=== PATIENT | female | born 1950 | race Caucasian/White ===

== ENCOUNTER 2016-06-24 09:30 | Emergency (ER) | payer MEDICARE, MEDICAID ==
[2016-06-24] MEDS ORDERED: DEXTROSE 50%-WATER 25 GM/50 ML DISP.SYRIN IV ONE (09:47)
--- NOTE | 2016-06-24 11:13 | ER Document Report ---
ED General - General Chief Complaint: Fall Stated Complaint: FALL/SHOULDER PAIN Mode of Arrival: Medic Information source: Patient, Emergency Med Personnel Notes: 65-year-old female presents from care facility where she was found down on her left side. Patient admits to right shoulder pain left hand pain. Patient noted to have swelling to the digit of her left hand with a ring on it which was attempted to be cut off by medics. Patient history diabetes has not been eating the past 2 days noted to have a glucose of 41 on arrival TRAVEL OUTSIDE OF THE [place] IN LAST 30 DAYS: No - HPI Onset: Just prior to arrival Onset/Duration: Sudden Quality of pain: Achy Severity: Mild Pain Level: 1 Associated symptoms: Weakness Exacerbated by: Movement Relieved by: Denies Similar symptoms previously: Yes Recently seen / treated by doctor: Yes - Related Data Allergies/Adverse Reactions: ciprofloxacin [From Cipro] Allergy (Verified 06/24/16 11:10) Rash/Hives meperidine [Meperidine] Allergy (Verified 06/24/16 11:10) Rash/Hives methadone [Methadone] Allergy (Verified 06/24/16 11:10) Rash/Hives Penicillins Allergy (Verified 06/24/16 11:10) Anaphylaxis, Rash Sulfa (Sulfonamide Antibiotics) Allergy (Verified 06/24/16 11:10) Rash/Hives Past Medical History - Social History Smoking Status: Never Smoker Cigarette use (# per day): No Chew tobacco use (# tins/day): No Smoking Education Provided: No Family History: Reviewed & Not Pertinent - Past Medical History Cardiac Medical History: Reports: Hx Hypercholesterolemia, Hx Hypertension - 6 years- takes meds Denies: Hx Atrial Fibrillation, Hx Congestive Heart Failure, Hx Coronary Artery Disease, Hx Heart Attack, Hx Peripheral Vascular Disease, Hx Pulmonary Embolism, Hx Heart Murmur Pulmonary Medical History: Reports: Hx Sleep Apnea - uses CPAP Denies: Hx Asthma, Hx Bronchitis, Hx COPD, Hx Pneumonia, Hx Respiratory Failure, Hx Tuberculosis Neurological Medical History: Reports: Hx Migraine Endocrine Medical History: Reports: Hx Diabetes Mellitus Type 2. Denies: Hx Graves' Disease, Hx Hyperthyroidism, Hx Hypothyroidism Renal/ Medical History: Reports: Hx Kidney Stones. Denies: Hx End Stage Renal Disease, Hx Peritoneal Dialysis Malignancy Medical History: Denies: Hx Lung Cancer GI Medical History: Reports: Hx Gastroesophageal Reflux Disease - takes meds, Hx Hiatal Hernia. Denies: Hx Crohn's Disease, Hx Irritable Bowel, Hx Liver Failure, Hx Ulcer Musculoskeltal Medical History: Reports Hx Arthritis, Denies Hx Fibromyalgia, Denies Hx Muscular Dystrophy Psychiatric Medical History: Reports: Hx Depression Denies: Hx Bipolar Disorder, Hx Post Traumatic Stress Disorder, Hx Schizophrenia Traumatic Medical History: Reports: Hx Fractures - closed, displaced fracture at right patella Infectious Medical History: Past Surgical History: Reports: Hx Section, Hx Cholecystectomy, Hx Orthopedic Surgery - bilat knee replacement, Hx Tubal Ligation. Denies: Hx Appendectomy, Hx Bowel Surgery, Hx Colostomy, Hx Coronary Artery Bypass Graft, Hx Gastric Bypass Surgery, Hx Herniorrhaphy, Hx Hysterectomy, Hx Mastectomy, Hx Pacemaker, Hx Tonsillectomy - Immunizations Immunizations up to date: Yes Hx Diphtheria, Pertussis, Tetanus Vaccination: Yes Hx Pneumococcal Vaccination: 07/07/15 Review of Systems - Review of Systems Notes: REVIEW OF SYSTEMS: CONSTITUTIONAL : Denies fever, chills, or sweats. Denies recent illness. EENT: Denies eye, ear, throat, or mouth pain or symptoms. Denies nasal or sinus congestion or discharge. Denies throat, tongue, or mouth swelling or difficulty swallowing. CARDIOVASCULAR: Denies chest pain. Denies palpitations or racing or irregular heart beat. Denies ankle edema. RESPIRATORY: Denies cough, cold, or chest congestion. Denies shortness of breath, difficulty breathing, or wheezing. GASTROINTESTINAL: Denies abdominal pain or distention. Denies nausea, vomiting , or diarrhea. Denies blood in vomitus, stools, or per rectum. Denies black, tarry stools. Denies constipation. GENITOURINARY: Denies difficulty urinating, painful urination, burning, frequency, blood in urine, or discharge. FEMALE GENITOURINARY: Denies vaginal bleeding, heavy or abnormal periods, irregular periods. Denies vaginal discharge or odor. MUSCULOSKELETAL: Admits to left hand pain right shoulder pain SKIN: Denies rash, lesions or sores. HEMATOLOGIC : Denies easy bruising or bleeding. LYMPHATIC: Denies swollen, enlarged glands. NEUROLOGICAL: Denies confusion or altered mental status. Denies passing out or loss of consciousness. Denies dizziness or lightheadedness. Denies headache. Denies weakness or paralysis or loss of use of either side. Denies problems with gait or speech. Denies sensory loss, numbness, or tingling. Denies seizures. PSYCHIATRIC: Denies anxiety or stress. Denies depression, suicidal ideation, or homicidal ideation. ALL OTHER SYSTEMS REVIEWED AND NEGATIVE. Dictation was performed using [employer] voice recognition software PHYSICAL EXAMINATION: GENERAL: Well-appearing, well-nourished and in no acute distress. HEAD: Atraumatic, normocephalic. EYES: Pupils equal round and reactive to light, extraocular movements intact, conjunctiva are normal. ENT: Nares patent, oropharynx clear without exudates. Moist mucous membranes. NECK: Normal range of motion, supple without lymphadenopathy LUNGS: Breath sounds clear to auscultation bilaterally and equal. No wheezes rales or rhonchi. HEART: Regular rate and rhythm without murmurs ABDOMEN: Soft, nontender, nondistended abdomen. No guarding, no rebound. No masses appreciated. Female : deferred Musculoskeletal: Tenderness with range of motion of the right shoulder swelling noted to digits of left hand NEUROLOGICAL: Patient noted to be confused with a glucose of 41 PSYCH: Normal mood, normal affect. SKIN: Warm, Dry, normal turgor, no rashes or lesions noted. Physical Exam - Vital signs Vitals: Resp 20 06/24/16 09:30 Course - Re-evaluation Re-evalutation: 06/24/16 11:13 I removed the patient's ring using jelly. X-rays are pending lab work is pending 06/24/16 12:24 X-rays lab work note no significant abnormality. Patient's otherwise stable and well-appearing. Moderate leukoesterases are noted without any white blood cells on urine Recheck blood sugar 06/24/16 12:42 Patient blood sugar was rechecked and stable. I believe she is stable for discharge at this time. After performing a Medical Screening Examination, I estimate there is LOW risk for ACUTE CORONARY SYNDROME, RESPIRATORY FAILURE, SEPSIS OR MENINGITIS, thus I consider the discharge disposition reasonable. The patient and I have discussed the diagnosis and risks, and we agree with discharging home with close follow- up. We also discussed returning to the Emergency Department immediately if new or worsening symptoms occur. We have discussed the symptoms which are most concerning (e.g., changing or worsening pain, trouble swallowing or breathing, neck stiffness, fever) that necessitate immediate return. - Vital Signs Vital signs: Temp Pulse Resp BP Pulse Ox 97.4 F 78 19 160/77 H 98 06/24/16 09:35 06/24/16 09:35 06/24/16 12:01 06/24/16 12:01 06/24/16 12:01 - Laboratory Result Diagrams: 06/24/16 10:59 06/24/16 10:59 Laboratory results interpreted by me: 06/24/16 06/24/16 06/24/16 09:42 10:59 10:59 RBC 3.70 L Hgb 11.1 L Hct 33.8 L Glucose 119 H POC Glucose 41 L Ur Leukocyte Esterase 06/24/16 11:04 RBC Hgb Hct Glucose POC Glucose Ur Leukocyte Esterase MODERATE H - Diagnostic Test Radiology reviewed: Image reviewed, Reports reviewed Discharge - Discharge Clinical Impression: Hypoglycemia Fall Qualifiers: Encounter type: initial encounter Qualified Code(s): W19.XXXA - Unspecified fall, initial encounter Shoulder pain Qualifiers: Laterality: right Chronicity: acute Qualified Code(s): M25.511 - Pain in right shoulder Hand pain Qualifiers: Laterality: left Qualified Code(s): M79.642 - Pain in left hand Condition: Stable Disposition: HOME, SELF-CARE Additional Instructions: Please reevaluate with your primary care physician tomorrow or return immediately if there are any other concerns Referrals: CRISTIAN HAWKINS MD [Primary Care Provider] - Follow up tomorrow
[2016-06-24 11:18] LABS: ABSOLUTE BASOPHILS # (AUTO) 0.1 10^3/uL (0.0-0.2); ABSOLUTE EOSINOPHILS # (AUTO) 0.2 10^3/uL (0.0-0.6); ABSOLUTE LYMPHOCYTES (AUTO) 1.4 10^3/uL (0.5-4.7); ABSOLUTE MONOCYTES (AUTO) 0.7 10^3/uL (0.1-1.4); ABSOLUTE NEUT (AUTO) 5.5 10^3/uL (1.7-8.2); BASOPHILS % (AUTO) 0.9 % (0-2); HEMATOCRIT 33.8 % (36.0-47.0); HEMOGLOBIN 11.1 g/dL (12.0-15.5); HGB HCT DIFFERENCE -0.5; LYMPHOCYTES % (AUTO) 17.8 % (13-45); MEAN CORPUSCULAR HEMOGLOBIN 30.1 pg (27.0-33.4); MEAN CORPUSCULAR HGB CONC 32.9 g/dL (32.0-36.0); MEAN CORPUSCULAR VOLUME 91 fl (80-97); MONOCYTES % (AUTO) 8.8 % (3-13); RED CELL DISTRIBUTION WIDTH 13.5 % (11.5-14.0); SEGMENTED NEUTROPHILS % (AUTO) 69.5 % (42-78); WHITE BLOOD COUNT 7.9 10^3/uL (4.0-10.5)
[2016-06-24 11:24] LABS: ALANINE AMINOTRANSFERASE 19 U/L (9-52); ALBUMIN 3.9 g/dL (3.5-5.0); ALKALINE PHOSPHATASE 50 U/L (38-126); ANION GAP 13 (5-19); ASPARTATE AMINO TRANSFERASE 25 U/L (14-36); BILIRUBIN,DIRECT 0.3 mg/dL (0.0-0.4); BILIRUBIN,TOTAL 0.3 mg/dL (0.2-1.3); BLOOD UREA NITROGEN 16 mg/dL (7-20); CALCIUM 9.6 mg/dL (8.4-10.2); CARBON DIOXIDE 25 mmol/L (22-30); CHLORIDE 106 mmol/L (98-107); CREATINE KINASE 78 U/L (30-135); CREATININE RESULT 0.94 mg/dL (0.52-1.25); GLUCOSE 119 mg/dL (75-110); POTASSIUM 4.6 mmol/L (3.6-5.0); SODIUM 143.7 mmol/L (137-145); TOTAL PROTEIN 6.7 g/dL (6.3-8.2)
[2016-06-24 11:29] LABS: APPEARANCE,URINE SLIGHTLY-CLOUDY; BILIRUBIN,URINE NEGATIVE (NEGATIVE); GLUCOSE, URINE NEGATIVE (NEGATIVE); KETONES,URINE NEGATIVE (NEGATIVE); LEUKOCYTE ESTERASE,URINE MODERATE (NEGATIVE); NITRITE,URINE NEGATIVE (NEGATIVE); PROTEIN,URINE NEGATIVE (NEGATIVE); URINE SPECIFIC GRAVITY 1.008; UROBILINOGEN,URINE NEGATIVE mg/dL (<2.0)
[2016-06-24 11:37] LABS: CREATINE KINASE MB 1.88 ng/mL (<4.55); TROPONIN I < 0.012 ng/mL
[2016-06-24] MEDS ORDERED: KETOROLAC TROMETHAMINE INJ/PF 30 MG/1 ML SDV IV ONE (12:02)
[2016-06-24 13:15] VITALS: BP 156/79
== END 2016-06-24 14:10 | disposition home or self-care (01) ==
LOC: ER 09:30
DX: M25.511 Pain in right shoulder (principal); M79.642 Pain in left hand; M79.89 Other specified soft tissue disorders; E11.9 Type 2 diabetes mellitus without complications; W19.XXXA Unspecified fall, initial encounter
CPT/HCPCS: 99284; 96374; 96375; 36415; 82553; 82962; 82550; 85025; 80053; 81001; 84484; 73130; 73030; J3490; J1885

== ENCOUNTER 2016-07-17 16:34 | Emergency (ER) | payer MEDICARE, MEDICAID ==
--- NOTE | 2016-07-17 18:01 | ER Document Report ---
ED General - General Chief Complaint: Low Blood Sugar Stated Complaint: LOW BLOOD PRESSURE Time seen by provider: 16:35 Mode of Arrival: Medic Information source: Patient, Emergency Med Personnel Notes: 65-year-old female who told her roommate at [facility]term that she was feeling weak as if her blood sugar was dropping after physical therapy this afternoon. Her roommate notified long-term staff who called EMS. EMS personnel found her to have a glucose of 36. senior living staff administered oral glucose prior to EMS arrival and EMS administered D50. Patient had resolution of her sensation of weakness and feels normal upon arrival in emergency department. Patient was also noted to have a blood pressure of 76/60 by EMS personnel and she received IV fluids. Initial blood pressure here was 93 systolic after total of approximately 7 or 50 mL of saline. The patient reports she has been in her normal state of health recently. She reports she doesn't ordinarily breakfast but did eat lunch today and her blood sugar at lunch time was 350 she received 4 units of NovoLog for that. Patient feels well now with no complaints. She reports that ordinarily gets around in a wheelchair Physical Exam: General: Alert, appears well. Pleasant happy smiling no distress HEENT: Normocephalic. Atraumatic. PERRLA. Extraocular movements intact. Oropharynx clear. Mucous membranes moist Neck: Supple. Non-tender. No JVD no carotid bruits Respiratory: No respiratory distress. Clear and equal breath sounds bilaterally. Cardiovascular: Regular rate and rhythm. Abdominal: Normal Inspection. Soft, non-tender. No distension. Normal Bowel Sounds. Back: Non-tender. No deformity or step off. No lesions noted Extremities: All warm with 2+ pulses no cyanosis no edema no Homans sign bilaterally Neurological: Oriented to person place and year. 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 Normal Mood. Skin: Warm. Dry. Normal color. TRAVEL OUTSIDE OF THE [place] IN LAST 30 DAYS: No - Related Data Allergies/Adverse Reactions: ciprofloxacin [From Cipro] Allergy (Verified 06/24/16 11:10) Rash/Hives meperidine [Meperidine] Allergy (Verified 06/24/16 11:10) Rash/Hives methadone [Methadone] Allergy (Verified 06/24/16 11:10) Rash/Hives Penicillins Allergy (Verified 06/24/16 11:10) Anaphylaxis, Rash Sulfa (Sulfonamide Antibiotics) Allergy (Verified 06/24/16 11:10) Rash/Hives Past Medical History - Social History Smoking Status: Never Smoker Chew tobacco use (# tins/day): No Frequency of alcohol use: None Drug Abuse: None Family History: Reviewed & Not Pertinent - Past Medical History Cardiac Medical History: Reports: Hx Hypercholesterolemia, Hx Hypertension - 6 years- takes meds Denies: Hx Atrial Fibrillation, Hx Congestive Heart Failure, Hx Coronary Artery Disease, Hx Heart Attack, Hx Peripheral Vascular Disease, Hx Pulmonary Embolism, Hx Heart Murmur Pulmonary Medical History: Reports: Hx Sleep Apnea - uses CPAP Denies: Hx Asthma, Hx Bronchitis, Hx COPD, Hx Pneumonia, Hx Respiratory Failure, Hx Tuberculosis Neurological Medical History: Reports: Hx Migraine Endocrine Medical History: Reports: Hx Diabetes Mellitus Type 2. Denies: Hx Graves' Disease, Hx Hyperthyroidism, Hx Hypothyroidism Renal/ Medical History: Reports: Hx Kidney Stones. Denies: Hx End Stage Renal Disease, Hx Peritoneal Dialysis Malignancy Medical History: Denies: Hx Lung Cancer GI Medical History: Reports: Hx Gastroesophageal Reflux Disease - takes meds, Hx Hiatal Hernia. Denies: Hx Crohn's Disease, Hx Irritable Bowel, Hx Liver Failure, Hx Ulcer Musculoskeltal Medical History: Reports Hx Arthritis, Denies Hx Fibromyalgia, Denies Hx Muscular Dystrophy Psychiatric Medical History: Reports: Hx Depression Denies: Hx Bipolar Disorder, Hx Post Traumatic Stress Disorder, Hx Schizophrenia Traumatic Medical History: Reports: Hx Fractures - closed, displaced fracture at right patella Infectious Medical History: Past Surgical History: Reports: Hx Section, Hx Cholecystectomy, Hx Orthopedic Surgery - bilat knee replacement, Hx Tubal Ligation. Denies: Hx Appendectomy, Hx Bowel Surgery, Hx Colostomy, Hx Coronary Artery Bypass Graft, Hx Gastric Bypass Surgery, Hx Herniorrhaphy, Hx Hysterectomy, Hx Mastectomy, Hx Pacemaker, Hx Tonsillectomy - Immunizations Immunizations up to date: Yes Hx Diphtheria, Pertussis, Tetanus Vaccination: Yes Hx Pneumococcal Vaccination: 07/07/15 Review of Systems - Review of Systems Constitutional: Weakness. denies: Chills, Diaphoresis, Fever EENT: denies: Ear pain, Nose congestion, Throat pain Cardiovascular: denies: Chest pain, Palpitations, Dyspnea, Syncope Respiratory: denies: Cough, Short of breath, Wheezing Gastrointestinal: denies: Abdominal pain, Diarrhea, Nausea, Vomiting, Blood in vomit, Black stools, Rectal bleeding Genitourinary: denies: Burning, Dysuria Female Genitourinary: Post menopausal Musculoskeletal: denies: Back pain, Muscle pain, Leg swelling, Ankle swelling Skin: denies: Rash Hematologic/Lymphatic: denies: Swollen glands Neurological/Psychological: denies: Weakness, Numbness Physical Exam - Vital signs Vitals: Resp Pulse Ox 12 100 07/17/16 16:54 07/17/16 16:54 Course - Re-evaluation Re-evalutation: 07/17/16 19:13 Patient has remained asymptomatic and hemodynamically stable during her stay in him or his partner. She Took all that they reported blood pressure 76/60 is really accurate. The patient is mentating clearly perfusing well in all extremities. She is eaten and recheck blood sugars 130. She will be going to facility where she can be observed for changes in mental status or recurrent hypoglycemia and is safe for discharge - Vital Signs Vital signs: Temp Pulse Resp BP Pulse Ox 97.5 F 15 100/51 L 96 07/17/16 17:05 07/17/16 17:01 07/17/16 17:01 07/17/16 17:01 Discharge - Discharge Clinical Impression: Hypoglycemia Condition: Stable Disposition: HOME-SNF (ED ONLY) Additional Instructions: Hypoglycemia You have suffered an episode of hypoglycemia (low blood sugar). Typical symptoms of hypoglycemia are shaking, sweating, headache, and confusion. When severe, unconsciousness or seizure may occur. Hypoglycemia occurs when a person taking insulin or diabetes pills has a change in the amount of blood sugar available -- due to exercise, decreased food intake, or alcohol. Should you feel symptoms of hypoglycemia again, immediately take some form of sugar such as sweetened juice. As the reaction subsides, eat a complex carbohydrate such as bread. If possible, check your blood sugar using a chemical strip. If episodes are occurring without obvious explanation, contact your physician for further evaluation. Referrals: CRISTIAN HAWKINS MD [Primary Care Provider] - Follow up in 3-5 days
[2016-07-18 02:12] VITALS: BP 120/55
== END 2016-07-18 02:18 ==
LOC: ER 16:34
DX: E11.649 Type 2 diabetes mellitus with hypoglycemia without coma (principal); Z79.4 Long term (current) use of insulin; R53.1 Weakness; K21.9 Gastro-esophageal reflux disease without esophagitis; E78.00 Pure hypercholesterolemia, unspecified; I10 Essential (primary) hypertension; Z88.3 Allergy status to other anti-infective agents; Z88.0 Allergy status to penicillin; Z88.2 Allergy status to sulfonamides; Z87.442 Personal history of urinary calculi
CPT/HCPCS: 82962; 99285

== ENCOUNTER 2016-08-28 05:12 | Day surgery (SDC) | payer MEDICARE, MEDICAID ==
--- NOTE | 2016-08-21 20:54 | EKG REPORT ---
SEVERITY:- ABNORMAL ECG - SINUS RHYTHM LEFT ANTERIOR FASCICULAR BLOCK CONSIDER ANTEROSEPTAL INFARCT : Confirmed by: Kaye Gonzalez MD 21-Aug-2016 20:53:27
[2016-08-22 08:01] LABS: ABSOLUTE BASOPHILS # (AUTO) 0.1 10^3/uL (0.0-0.2); ABSOLUTE EOSINOPHILS # (AUTO) 0.2 10^3/uL (0.0-0.6); ABSOLUTE LYMPHOCYTES (AUTO) 1.7 10^3/uL (0.5-4.7); ABSOLUTE MONOCYTES (AUTO) 0.8 10^3/uL (0.1-1.4); BASOPHILS % (AUTO) 0.9 % (0-2); HEMATOCRIT 31.7 % (36.0-47.0); HEMOGLOBIN 10.1 g/dL (12.0-15.5); HGB HCT DIFFERENCE -1.4; LYMPHOCYTES % (AUTO) 21.7 % (13-45); MEAN CORPUSCULAR HEMOGLOBIN 29.2 pg (27.0-33.4); MEAN CORPUSCULAR HGB CONC 31.7 g/dL (32.0-36.0); MEAN CORPUSCULAR VOLUME 92 fl (80-97); MONOCYTES % (AUTO) 10.6 % (3-13); RED BLOOD COUNT 3.44 10^6/uL (3.72-5.28); RED CELL DISTRIBUTION WIDTH 14.4 % (11.5-14.0); SEGMENTED NEUTROPHILS % (AUTO) 63.8 % (42-78); WHITE BLOOD COUNT 7.8 10^3/uL (4.0-10.5)
[2016-08-22 10:55] LABS: CALCIUM 10.6 mg/dL (8.4-10.2)
[2016-08-22 10:58] LABS: BLOOD UREA NITROGEN 18 mg/dL (7-20); CREATININE RESULT 1.02 mg/dL (0.52-1.25); GLUCOSE 39 mg/dL (75-110)
[2016-08-22 10:59] LABS: CARBON DIOXIDE 23 mmol/L (22-30); CHLORIDE 104 mmol/L (98-107); POTASSIUM 6.1 mmol/L (3.6-5.0)
[2016-08-22 11:00] LABS: ANION GAP 13 (5-19); SODIUM 139.8 mmol/L (137-145)
[~2016-08-28 05:12] MED LIST: CLINDAMYCIN 600 MG/D5W RTU 600 MG/50 ML RTUPB IV PRN; LACTATED RINGERS 1000 ML IV PRN; LIDOCAINE 0.5% INJ-PF (5 MG/ML) 50 ML SDV SUBCUT PRN
[2016-08-28 06:33] LABS: POTASSIUM 5.5 mmol/L (3.6-5.0)
[2016-08-28] MEDS ORDERED: BUPIVACAINE HCL 0.5%-EPI 1:200000 INJ/PF 30 ML VIAL ONE (06:47)
[2016-08-28] MEDS ORDERED: FENTANYL CITRATE INJ/PF 100 MCG/2 ML AMPUL ONE (07:12)
[2016-08-28] MEDS ORDERED: MIDAZOLAM 2 MG/2 ML INJ ONE (07:12)
[2016-08-28] MEDS ORDERED: DEXMEDETOMIDINE INJ 80 MCG/20 ML VIAL IV ONE (07:13)
[2016-08-28] MEDS ORDERED: KETAMINE HCL INJ 500 MG/10 ML VIAL ONE (07:13)
[2016-08-28] MEDS ORDERED: PROPOFOL INJ 200 MG/20 ML VIAL IV ONE (07:13)
[2016-08-28] MEDS ORDERED: EPHEDRINE SULFATE INJ 50 MG/1 ML AMPULE ONE (07:14)
[2016-08-28] MEDS ORDERED: FENTANYL CITRATE INJ/PF 100 MCG/2 ML AMPUL IV PRN ×3 (07:42)
[2016-08-28] MEDS ORDERED: MEPERIDINE HCL/PF INJ 25 MG/1 ML DISP.SYRIN IV PRN (07:42)
[2016-08-28] MEDS ORDERED: MORPHINE SULFATE 10 MG/ML INJ IV PRN (07:42)
[2016-08-28] MEDS ORDERED: DIPHENHYDRAMINE HCL 50 MG/ML VIAL IV PRN (07:42)
[2016-08-28] MEDS ORDERED: PROMETHAZINE HCL INJ 25 MG/1 ML VIAL IV PRN ×2 (07:42)
[2016-08-28] MEDS ORDERED: OXYCODONE-ACETAMINOPHEN 5-325 MG TABLET PO PRN ×2 (07:42)
--- NOTE | 2016-08-28 08:15 | Operative Report ---
Operative Report DATE OF SURGERY: 08/28/16 PREOPERATIVE DIAGNOSIS: Retained hardware status post open reduction internal fixation right patella fracture OPERATION: Hardware removal SURGEON: IVY LEON ANESTHESIA: GA TISSUE REMOVED OR ALTERED: Steinmann pin 2, [id number] wire ESTIMATED BLOOD LOSS: Minimal PROCEDURE: Patient supine on the operating table the right lower extremities prepped and draped in a sterile fashion. The limb was elevated for exsanguination. Tourniquet inflated 280 torr. A limited anterior midline incision is made and sharp dissection was carried incision to the superficial surface of patella. The underlying hardware is easily identified. [id number] wires removed after cutting it in midsection. The 2 Steinmann pins that are unfolded above and pulled out distally. All 3 pieces of hardware handed from the field. The wound was then irrigated. The tourniquet deflated. Hemostasis obtained with electrocautery. Wound was closed in layers with interrupted Vicryl followed by jeff. Sterile compressive dressing is applied and the patient's return to the PACU in satisfactory condition.
[2016-08-28] MEDS ORDERED: ONDANSETRON 4 MG TAB.RAPDIS SL PRN (08:23)
[2016-08-28] MEDS ORDERED: OXYCODONE HCL IR 5 MG TABLET PO PRN (08:23)
[2016-08-28] MEDS ORDERED: KETOROLAC TROMETHAMINE 60 MG/2 ML SDV ONE (10:07)
[2016-08-28] MEDS ORDERED: ONDANSETRON HCL INJ/PF 4 MG/2 ML SDV ONE (10:07)
[2016-08-28] MEDS ORDERED: SUCCINYLCHOLINE CHLORIDE INJ 200 MG/10 ML VIAL ONE (10:07)
[2016-08-28] MEDS ORDERED: LIDOCAINE 2% INJ-PF (20 MG/ML) 10 ML AMPUL ONE (10:07)
[2016-08-28] MEDS ORDERED: DEXAMETHASONE SOD PHOSPHATE INJ 4 MG/1 ML VIAL ONE (10:07)
[2016-08-28 10:15] VITALS: BP 107/52
== END 2016-08-28 09:55 | disposition home or self-care (01) ==
LOC: OROUT 05:12
PROVIDERS: ATTEND Orthopaedic Surgery
PROC: 0QPD04Z Removal of Internal Fixation Device from Right Patella, Open Approach (ICD-10-PCS; principal; 2016-08-28 07:30)
DX: S82.011 Displaced osteochondral fracture of right patella (principal); X58.XXXS Exposure to other specified factors, sequela; E11.9 Type 2 diabetes mellitus without complications; E78.5 Hyperlipidemia, unspecified; M19.90 Unspecified osteoarthritis, unspecified site; Z79.899 Other long term (current) drug therapy; Z47.2 Encounter for removal of internal fixation device; Z88.0 Allergy status to penicillin; Z88.2 Allergy status to sulfonamides; Z88.5 Allergy status to narcotic agent; Z79.82 Long term (current) use of aspirin; Z79.4 Long term (current) use of insulin
CPT/HCPCS: 93005; 36415 ×2; 82947; 84132; 85025; 80048; 83036; 71020; 93010; 20680; J2250; J3490 ×5; J1100; J1885; J3010; J0330; J2405; J2704; A9270; 1392

== ENCOUNTER 2016-08-30 02:00 | Emergency (ER) | payer MEDICARE, MEDICAID ==
--- NOTE | 2016-08-30 03:22 | ER Document Report ---
ED GI/ - General Chief Complaint: Constipation Stated Complaint: CONSTIPATION Time Seen by Provider: 08/30/16 03:01 Mode of Arrival: Medic Information source: Patient Notes: Pt is a 65 year old female who presents to the ER today from [facility] for constipation x 1 week. Patient states that she has not had any type of bowel movement in 1 full week. She has been able to pass gas. She admits to nausea , but no vomiting. she does have a history of and gallbladder removal many years ago. she admits to abdominal pain all over her abdomen. She denies any dysuria, fever, chills. she has been taking stool softeners Which have not helped, and some type of green liquid at the senior care gave her that did not help. TRAVEL OUTSIDE OF THE [place] IN LAST 30 DAYS: No - Related Data Allergies/Adverse Reactions: ciprofloxacin [From Cipro] Allergy (Verified 06/24/16 11:10) Rash/Hives meperidine [Meperidine] Allergy (Verified 06/24/16 11:10) Rash/Hives methadone [Methadone] Allergy (Verified 06/24/16 11:10) Rash/Hives Penicillins Allergy (Verified 06/24/16 11:10) Anaphylaxis, Rash Sulfa (Sulfonamide Antibiotics) Allergy (Verified 06/24/16 11:10) Rash/Hives Past Medical History - General Information source: Patient - Social History Smoking Status: Unknown if Ever Smoked Family History: Reviewed & Not Pertinent Patient has suicidal ideation: No Patient has homicidal ideation: No - Past Medical History Cardiac Medical History: Reports: Hx Hypercholesterolemia, Hx Hypertension - 6 years- takes meds Denies: Hx Atrial Fibrillation, Hx Congestive Heart Failure, Hx Coronary Artery Disease, Hx Heart Attack, Hx Peripheral Vascular Disease, Hx Pulmonary Embolism, Hx Heart Murmur Pulmonary Medical History: Reports: Hx Sleep Apnea - uses CPAP Denies: Hx Asthma, Hx Bronchitis, Hx COPD, Hx Pneumonia, Hx Respiratory Failure, Hx Tuberculosis Neurological Medical History: Reports: Hx Migraine. Denies: Hx Cerebrovascular Accident, Hx Seizures Endocrine Medical History: Reports: Hx Diabetes Mellitus Type 2. Denies: Hx Graves' Disease, Hx Hyperthyroidism, Hx Hypothyroidism Renal/ Medical History: Reports: Hx Kidney Stones. Denies: Hx End Stage Renal Disease, Hx Peritoneal Dialysis Malignancy Medical History: Denies: Hx Lung Cancer GI Medical History: Reports: Hx Gastroesophageal Reflux Disease - takes meds, Hx Hiatal Hernia. Denies: Hx Crohn's Disease, Hx Irritable Bowel, Hx Liver Failure, Hx Ulcer Musculoskeltal Medical History: Reports Hx Arthritis, Denies Hx Fibromyalgia, Denies Hx Muscular Dystrophy Psychiatric Medical History: Reports: Hx Depression Denies: Hx Bipolar Disorder, Hx Post Traumatic Stress Disorder, Hx Schizophrenia Traumatic Medical History: Reports: Hx Fractures - closed, displaced fracture at right patella Infectious Medical History: Past Surgical History: Reports: Hx Section, Hx Cholecystectomy, Hx Orthopedic Surgery - bilat knee replacement, Hx Tubal Ligation. Denies: Hx Appendectomy, Hx Bowel Surgery, Hx Colostomy, Hx Coronary Artery Bypass Graft, Hx Gastric Bypass Surgery, Hx Herniorrhaphy, Hx Hysterectomy, Hx Mastectomy, Hx Pacemaker, Hx Tonsillectomy - Immunizations Immunizations up to date: Yes Hx Diphtheria, Pertussis, Tetanus Vaccination: Yes Hx Pneumococcal Vaccination: 07/07/15 Review of Systems - Review of Systems Constitutional: No symptoms reported EENT: No symptoms reported Cardiovascular: No symptoms reported Respiratory: No symptoms reported Gastrointestinal: See HPI Genitourinary: No symptoms reported Female Genitourinary: No symptoms reported Musculoskeletal: No symptoms reported Skin: No symptoms reported Hematologic/Lymphatic: No symptoms reported Neurological/Psychological: No symptoms reported Physical Exam - Vital signs Vitals: Temp Pulse Resp BP Pulse Ox 97.7 F 108 H 19 121/65 96 08/30/16 02:08 08/30/16 02:08 08/30/16 02:08 08/30/16 02:08 08/30/16 02:08 - Notes Notes: PHYSICAL EXAMINATION: GENERAL: chronically ill appearing, in no acute distress. HEAD: Atraumatic, normocephalic. EYES: Pupils equal round and reactive to light, extraocular movements intact, sclera anicteric, conjunctiva are normal. NECK: Normal range of motion, supple without lymphadenopathy LUNGS: CTAB and equal. No wheezes rales or rhonchi. HEART: Regular rate and rhythm without murmurs ABDOMEN: Soft, mild diffuse tenderness. No guarding, no rebound EXTREMITIES: Normal range of motion, no pitting edema. No cyanosis. NEUROLOGICAL: Cranial nerves grossly intact. Normal sensory/motor exams. PSYCH: Normal mood, normal affect. SKIN: Warm, Dry, normal turgor, no rashes or lesions noted Course - Re-evaluation Re-evalutation: 08/30/16 04:19 there is moderate stool retention in the left colon and the rectum on x-ray. No evidence of bowel obstruction, normal bowel gas pattern. 08/30/16 06:23 Pt has had a few large bowel movements here after disimpaction and mineral oil enema. - Vital Signs Vital signs: Temp Pulse Resp BP Pulse Ox 97.4 F 94 16 118/63 97 08/30/16 04:30 08/30/16 04:30 08/30/16 04:30 08/30/16 04:30 08/30/16 04:30 Procedures - Additional Procedures manual disimpaction Time performed: 05:30 - pt tolerated well Discharge - Discharge Clinical Impression: Constipation Qualifiers: Constipation type: unspecified constipation type Qualified Code(s): K59.00 - Constipation, unspecified Condition: Stable Disposition: HOME, SELF-CARE Instructions: Constipation ([facility]) Additional Instructions: Please continue your stool softener. Please drink plenty of water, and will help you have normal bowel movements. Return immediately for any new or worsening symptoms. Follow up with primary care provider, call tomorrow to make followup appointment.
--- NOTE | 2016-08-30 04:06 | RADIOLOGY REPORT (SQ) ---
EXAM DESCRIPTION: KUB/ABDOMEN (SINGLE VIEW) COMPLETED DATE/TIME: 08/30/2016 3:39 am REASON FOR STUDY: constipation x 1 week, abd pain COMPARISON: None. NUMBER OF VIEWS: One view. TECHNIQUE: Supine radiographic image of the abdomen acquired. LIMITATIONS: None. FINDINGS: BOWEL GAS PATTERN: Normal bowel gas pattern. No dilated loops. Moderate stool retention o f the left colon and rectum. CALCIFICATIONS: No suspicious calcifications. SOFT TISSUES: No gross mass or suggestion of organomegaly. HARDWARE: None in the abdomen. Bilateral tubal ligation clips. BONES: No acute fracture. No worrisome bone lesions. OTHER: No other significant finding. IMPRESSION: NO RADIOGRAPHIC EVIDENCE FOR ACUTE ABDOMINAL DISEASE. TECHNICAL DOCUMENTATION: JOB ID: [id number] [employer]- All Rights Reserved
[2016-08-30] MEDS ORDERED: MINERAL OIL ENEMA 133 ML PR ONE (05:28)
[2016-08-30 08:05] VITALS: BP 116/62
== END 2016-08-30 08:05 | disposition home or self-care (01) ==
LOC: ER 02:00
DX: K59.00 Constipation, unspecified (principal)
CPT/HCPCS: 99284; 74000; J3490

== ENCOUNTER 2016-09-01 12:33 | Emergency (ER) | payer MEDICARE, MEDICAID ==
[2016-09-01 12:51] VITALS: BP 131/79
[2016-09-01 13:23] LABS: ABSOLUTE EOSINOPHILS # (AUTO) 0.3 10^3/uL (0.0-0.6); ABSOLUTE LYMPHOCYTES (AUTO) 1.7 10^3/uL (0.5-4.7); ABSOLUTE MONOCYTES (AUTO) 0.9 10^3/uL (0.1-1.4); ABSOLUTE NEUT (AUTO) 4.5 10^3/uL (1.7-8.2); BASOPHILS % (AUTO) 0.6 % (0-2); EOSINOPHILS % (AUTO) 3.9 % (0-6); HEMATOCRIT 30.3 % (36.0-47.0); HEMOGLOBIN 9.9 g/dL (12.0-15.5); HGB HCT DIFFERENCE -0.6; LYMPHOCYTES % (AUTO) 22.3 % (13-45); MEAN CORPUSCULAR HGB CONC 32.7 g/dL (32.0-36.0); MEAN CORPUSCULAR VOLUME 92 fl (80-97); MONOCYTES % (AUTO) 12.7 % (3-13); RED CELL DISTRIBUTION WIDTH 14.5 % (11.5-14.0); SEGMENTED NEUTROPHILS % (AUTO) 60.5 % (42-78); WHITE BLOOD COUNT 7.5 10^3/uL (4.0-10.5)
[2016-09-01 13:41] LABS: ANION GAP 7 (5-19); BLOOD UREA NITROGEN 18 mg/dL (7-20); CALCIUM 10.1 mg/dL (8.4-10.2); CARBON DIOXIDE 25 mmol/L (22-30); CHLORIDE 106 mmol/L (98-107); GLUCOSE 73 mg/dL (75-110); POTASSIUM 5.4 mmol/L (3.6-5.0); SODIUM 137.7 mmol/L (137-145)
--- NOTE | 2016-09-01 13:55 | RADIOLOGY REPORT (SQ) ---
EXAM DESCRIPTION: CT HEAD WITHOUT COMPLETED DATE/TIME: 09/01/2016 1:37 pm REASON FOR STUDY: fell, hit head on hard floor COMPARISON: None. TECHNIQUE: Axial images acquired through the brain without intravenous contrast. Images reviewed wi th bone, brain and subdural windows. Images stored on PACS. All CT scanners at this facility use dose modulation, iterative reconstruction, and/or weight based d osing when appropriate to reduce radiation dose to as low as reasonably achievable (ALARA). [facility]: Dose Right [facility]: CareDose [facility]: Dose Right [facility]: Teradose 4D [facility]: WikiWand RADIATION DOSE: 63.42 mGy. LIMITATIONS: None. FINDINGS: VENTRICLES: Prominent. CEREBRUM: No masses. No hemorrhage. No midline shift. Areas of low density in the white matter mos t likely due to chronic micro-vascular ischemic change. No evidence for acute infarction. CEREBELLUM: No masses. No hemorrhage. No alteration of density. No evidence for acute infarction. EXTRAAXIAL SPACES: Mild age-related involutional change. No fluid collections. No masses. ORBITS AND GLOBE: No intra- or extraconal masses. Normal contour of globe without masses. CALVARIUM: No fracture. PARANASAL SINUSES: No fluid or mucosal thickening. SOFT TISSUES: No mass or hematoma. OTHER: No other significant finding. IMPRESSION: MILD CHRONIC CHANGES OF ATROPHY AND MICROVASCULAR ISCHEMIA. NO ACUTE PROCESS. TECHNICAL DOCUMENTATION: JOB ID: [id number] Quality ID # [id number]: Final reports with documentation of one or more dose reduction techniques (e.g., Au tomated exposure control, adjustment of the mA and/or kV according to patient size, use of iterative reconstruction technique) 2010 [employer]- All Rights Reserved
--- NOTE | 2016-09-01 13:59 | RADIOLOGY REPORT (SQ) ---
EXAM DESCRIPTION: HUMERUS RIGHT COMPLETED DATE/TIME: 09/01/2016 1:33 pm REASON FOR STUDY: fall COMPARISON: 06/24/2016. NUMBER OF VIEWS: Two views. TECHNIQUE: Two radiographic images were acquired of the right humerus to include elbow and shoulder in at least one projection. LIMITATIONS: None. FINDINGS: MINERALIZATION: Normal. BONES: Chronic deformity of the humeral head with old ununited fracture. No apparent acute fracture visualized. SOFT TISSUES: No obvious swelling or foreign body. OTHER: No other significant finding. 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 NO APPARENT ACUTE FINDINGS. TECHNICAL DOCUMENTATION: JOB ID: [id number] [employer]- All Rights Reserved
--- NOTE | 2016-09-01 14:02 | RADIOLOGY REPORT (SQ) ---
EXAM DESCRIPTION: KNEE RIGHT 3 VIEWS COMPLETED DATE/TIME: 09/01/2016 1:33 pm REASON FOR STUDY: fall, recent patellar fx surgery COMPARISON: 02/20/2016. NUMBER OF VIEWS: Three views. TECHNIQUE: AP, lateral, and sunrise patella radiographic images acquired of the right knee. LIMITATIONS: None. FINDINGS: MINERALIZATION: Normal. BONES: Right knee prosthesis. No apparent acute findings related to the prosthesis. Previously seen hardware in the patella has been removed. Extensive old deformity of the patella. No definite acut e fracture. JOINT: No effusion. SOFT TISSUES: Mild prepatellar soft tissue swelling with overlying skin jeff. OTHER: No other significant finding. IMPRESSION: STABLE KNEE PROSTHESIS. RECENT SURGERY IN THE PATELLA WITH OLD DEFORMITY. NO DEFINITE ACUTE FINDINGS. TECHNICAL DOCUMENTATION: JOB ID: [id number] [employer]- All Rights Reserved
--- NOTE | 2016-09-01 14:38 | ER Document Report ---
ED Fall - General Chief Complaint: Fall Stated Complaint: HEAD/SHOULDER PAIN Time Seen by Provider: 09/01/16 12:37 Mode of Arrival: Medic Information source: Patient, Outside Facility Records Notes: This is a 65 year old wheelchair dependent female from [facility] who presents after a fall out of her wheelchair. Patient states that she was feeling fine, reading the newspaper, when she dropped onto the floor. She leaned forward out of her wheelchair to filler picker the paper and fell out of the wheelchair hitting her head on the floor. She also struck her right shoulder. She did not lose consciousness. She states she feels fine right now. She denies any weakness, paresthesias, nausea, or vomiting. She also denies any chest pain or shortness of breath. TRAVEL OUTSIDE OF THE [place] IN LAST 30 DAYS: No - Related data Allergies/Adverse Reactions: ciprofloxacin [From Cipro] Allergy (Verified 09/01/16 12:47) Rash/Hives meperidine [Meperidine] Allergy (Verified 09/01/16 12:47) Rash/Hives methadone [Methadone] Allergy (Verified 09/01/16 12:47) Rash/Hives Penicillins Allergy (Verified 09/01/16 12:47) Anaphylaxis, Rash Sulfa (Sulfonamide Antibiotics) Allergy (Verified 09/01/16 12:47) Rash/Hives Past Medical History - General Information source: Patient, H Records, Outside Facility Records - Social History Smoking Status: Unknown if Ever Smoked Family History: Reviewed & Not Pertinent - Past Medical History Cardiac Medical History: Reports: Hx Hypercholesterolemia, Hx Hypertension - 6 years- takes meds Denies: Hx Atrial Fibrillation, Hx Congestive Heart Failure, Hx Coronary Artery Disease, Hx Heart Attack, Hx Peripheral Vascular Disease, Hx Pulmonary Embolism, Hx Heart Murmur Pulmonary Medical History: Reports: Hx Sleep Apnea - uses CPAP Denies: Hx Asthma, Hx Bronchitis, Hx COPD, Hx Pneumonia, Hx Respiratory Failure, Hx Tuberculosis Neurological Medical History: Reports: Hx Migraine. Denies: Hx Cerebrovascular Accident, Hx Seizures Endocrine Medical History: Reports: Hx Diabetes Mellitus Type 2. Denies: Hx Graves' Disease, Hx Hyperthyroidism, Hx Hypothyroidism Renal/ Medical History: Reports: Hx Kidney Stones. Denies: Hx End Stage Renal Disease, Hx Peritoneal Dialysis Malignancy Medical History: Denies: Hx Lung Cancer GI Medical History: Reports: Hx Gastroesophageal Reflux Disease - takes meds, Hx Hiatal Hernia. Denies: Hx Crohn's Disease, Hx Irritable Bowel, Hx Liver Failure, Hx Ulcer Musculoskeltal Medical History: Reports Hx Arthritis, Denies Hx Fibromyalgia, Denies Hx Muscular Dystrophy Psychiatric Medical History: Reports: Hx Depression Denies: Hx Bipolar Disorder, Hx Post Traumatic Stress Disorder, Hx Schizophrenia Traumatic Medical History: Reports: Hx Fractures - closed, displaced fracture at right patella Infectious Medical History: Past Surgical History: Reports: Hx Section, Hx Cholecystectomy, Hx Orthopedic Surgery - bilat knee replacement, Hx Tubal Ligation. Denies: Hx Appendectomy, Hx Bowel Surgery, Hx Colostomy, Hx Coronary Artery Bypass Graft, Hx Gastric Bypass Surgery, Hx Herniorrhaphy, Hx Hysterectomy, Hx Mastectomy, Hx Pacemaker, Hx Tonsillectomy - Immunizations Immunizations up to date: Yes Hx Diphtheria, Pertussis, Tetanus Vaccination: Yes Hx Pneumococcal Vaccination: 07/07/15 Review of Systems - Review of Systems Constitutional: No symptoms reported. denies: Chills, Fever, Recent illness EENT: No symptoms reported Cardiovascular: No symptoms reported. denies: Chest pain Respiratory: No symptoms reported Gastrointestinal: No symptoms reported Genitourinary: No symptoms reported Musculoskeletal: See HPI Skin: No symptoms reported Hematologic/Lymphatic: No symptoms reported Neurological/Psychological: See HPI Physical Exam - Vital signs Vitals: Temp Pulse Resp BP Pulse Ox 97.5 F 94 20 131/79 H 94 09/01/16 12:41 09/01/16 12:41 09/01/16 12:41 09/01/16 12:41 09/01/16 12:41 - Notes Notes: PHYSICAL EXAMINATION: GENERAL: Elderly chronically ill appearing female, well-nourished, pleasant smiling and conversant and in no acute distress. HEAD: Atraumatic, normocephalic. EYES: Pupils equal round and reactive to light, extraocular movements intact, sclera anicteric, conjunctiva are normal. ENT: nares patent, oropharynx clear without exudates. Moist mucous membranes. NECK: Normal range of motion, supple without lymphadenopathy LUNGS: Breath sounds clear to auscultation bilaterally and equal. No wheezes rales or rhonchi. HEART: Regular rate and rhythm without murmurs ABDOMEN: Soft, nontender, normoactive bowel sounds. No guarding, no rebound. No masses appreciated. EXTREMITIES: Normal range of motion, no edema. Surgical incision anterior R knee with jeff intact, small amount of dried blood around incision, no edema/ warmth/induration, incision healing well NEUROLOGICAL: Cranial nerves grossly intact. No gross focal motor or sensory deficits noted PSYCH: Normal mood, normal affect. Course - Re-evaluation Re-evalutation: 09/01/16 14:58 Pt has remained comfortable and hemodynamically stable in the ER. CT head with no acute abnormality, and R shoulder shows chronic non-healed humeral fracture with no acute fracture noted. Will d/c with RUE sling for comfort as needed, follow up PCP. Patient happy and very comfortable with this plan - Vital Signs Vital signs: Temp Pulse Resp BP Pulse Ox 97.5 F 94 20 131/79 H 94 09/01/16 12:41 09/01/16 12:41 09/01/16 12:41 09/01/16 12:41 09/01/16 12:41 - Laboratory Result Diagrams: 09/01/16 13:08 09/01/16 13:08 Laboratory results interpreted by me: 09/01/16 09/01/16 13:08 13:08 RBC 3.30 L Hgb 9.9 L Hct 30.3 L RDW 14.5 H Potassium 5.4 H Glucose 73 L Discharge - Discharge Clinical Impression: Right arm pain, Chronic anemia Fall Qualifiers: Encounter type: initial encounter Qualified Code(s): W19.XXXA - Unspecified fall, initial encounter Condition: Stable Disposition: SNF Additional Instructions: Your xrays and CT today show no evidence of significant injury from the fall out of your wheelchair today. You can use the R arm sling for comfort, as needed. Follow up with your orthopedic physician for surgical followup as scheduled for your knee. Return to the ER for any worsening symptoms or concerns.
== END 2016-09-01 16:01 ==
LOC: ER 12:33
DX: R51 Headache (principal); D64.9 Anemia, unspecified; M25.511 Pain in right shoulder; W19.XXXA Unspecified fall, initial encounter
CPT/HCPCS: 36415; 70450; 80048; 85025; 99285

== ENCOUNTER 2016-09-25 18:42 | Emergency (ER) | payer MEDICARE, MEDICAID ==
--- NOTE | 2016-09-25 19:18 | ER Document Report ---
ED Skin Rash/Insect Bite/Abscs - General Chief Complaint: Abscess Stated Complaint: POSSIBLE ABSCESS BACK OF HEAD Time Seen by Provider: 09/25/16 19:18 Notes: The patient is a 65-year-old female, past medical history diabetes, presents with 2 days of increased swelling and a small amount discharge from the wound on the left side of her head. She denies head injury, fevers, nausea, vomiting , numbness or tingling. TRAVEL OUTSIDE OF THE [place] IN LAST 30 DAYS: No - Related Data Allergies/Adverse Reactions: ciprofloxacin [From Cipro] Allergy (Verified 09/01/16 12:47) Rash/Hives meperidine [Meperidine] Allergy (Verified 09/01/16 12:47) Rash/Hives methadone [Methadone] Allergy (Verified 09/01/16 12:47) Rash/Hives Penicillins Allergy (Verified 09/01/16 12:47) Anaphylaxis, Rash Sulfa (Sulfonamide Antibiotics) Allergy (Verified 09/01/16 12:47) Rash/Hives Past Medical History - General Information source: Patient - Social History Smoking Status: Unknown if Ever Smoked Chew tobacco use (# tins/day): No Frequency of alcohol use: None Drug Abuse: None Family History: Reviewed & Not Pertinent - Past Medical History Cardiac Medical History: Reports: Hx Hypercholesterolemia, Hx Hypertension - 6 years- takes meds Denies: Hx Atrial Fibrillation, Hx Congestive Heart Failure, Hx Coronary Artery Disease, Hx Heart Attack, Hx Peripheral Vascular Disease, Hx Pulmonary Embolism, Hx Heart Murmur Pulmonary Medical History: Reports: Hx Sleep Apnea - uses CPAP Denies: Hx Asthma, Hx Bronchitis, Hx COPD, Hx Pneumonia, Hx Respiratory Failure, Hx Tuberculosis Neurological Medical History: Reports: Hx Migraine. Denies: Hx Cerebrovascular Accident, Hx Seizures Endocrine Medical History: Reports: Hx Diabetes Mellitus Type 2. Denies: Hx Graves' Disease, Hx Hyperthyroidism, Hx Hypothyroidism Renal/ Medical History: Reports: Hx Kidney Stones. Denies: Hx End Stage Renal Disease, Hx Peritoneal Dialysis Malignancy Medical History: Denies: Hx Lung Cancer GI Medical History: Reports: Hx Gastroesophageal Reflux Disease - takes meds, Hx Hiatal Hernia. Denies: Hx Crohn's Disease, Hx Irritable Bowel, Hx Liver Failure, Hx Ulcer Musculoskeltal Medical History: Reports Hx Arthritis, Denies Hx Fibromyalgia, Denies Hx Muscular Dystrophy Psychiatric Medical History: Reports: Hx Depression Denies: Hx Bipolar Disorder, Hx Post Traumatic Stress Disorder, Hx Schizophrenia Traumatic Medical History: Reports: Hx Fractures - closed, displaced fracture at right patella Infectious Medical History: Past Surgical History: Reports: Hx Section, Hx Cholecystectomy, Hx Orthopedic Surgery - bilat knee replacement, Hx Tubal Ligation. Denies: Hx Appendectomy, Hx Bowel Surgery, Hx Colostomy, Hx Coronary Artery Bypass Graft, Hx Gastric Bypass Surgery, Hx Herniorrhaphy, Hx Hysterectomy, Hx Mastectomy, Hx Pacemaker, Hx Tonsillectomy - Immunizations Immunizations up to date: Yes Hx Diphtheria, Pertussis, Tetanus Vaccination: Yes Hx Pneumococcal Vaccination: 07/07/15 Review of Systems - Review of Systems Notes: REVIEW OF SYSTEMS: CONSTITUTIONAL: -fevers, -chills EENT: -eye pain, -difficulty swallowing, -nasal congestion CARDIOVASCULAR:-chest pain, -syncope. RESPIRATORY: -cough, -SOB GASTROINTESTINAL: -abdominal pain, - nausea, -vomiting, -diarrhea GENITOURINARY: -dysuria, -hematuria MUSCULOSKELETAL: -back pain, -neck pain SKIN: +left scalp abscess HEMATOLOGIC: -easy bruising or bleeding. LYMPHATIC: -swollen, enlarged glands. NEUROLOGICAL: -altered mental status or loss of consciousness, -headache, - neurologic symptoms PSYCHIATRIC: -anxiety, -depression. ALL OTHER SYSTEMS REVIEWED AND NEGATIVE. Physical Exam - Vital signs Vitals: Temp Pulse Resp BP Pulse Ox 98.6 F 92 20 95/61 L 96 09/25/16 19:00 09/25/16 19:00 09/25/16 19:00 09/25/16 19:00 09/25/16 19:00 - Notes Notes: PHYSICAL EXAMINATION: GENERAL: Well-appearing, well-nourished and in no acute distress. HEAD: Atraumatic, normocephalic. EYES: Pupils equal round and reactive to light, extraocular movements intact, sclera anicteric, conjunctiva are normal. ENT: nares patent, oropharynx clear without exudates. Moist mucous membranes. NECK: Normal range of motion, supple without lymphadenopathy LUNGS: Breath sounds clear to auscultation bilaterally and equal. No wheezes rales or rhonchi. HEART: Regular rate and rhythm without murmurs ABDOMEN: Soft, nontender, normoactive bowel sounds. No guarding, no rebound. No masses appreciated. EXTREMITIES: Normal range of motion, no pitting or edema. No cyanosis. NEUROLOGICAL: Cranial nerves grossly intact. Normal speech, normal gait. Normal sensory and motor exams. PSYCH: Normal mood, normal affect. SKIN: 3 cm fluctuant abscess over left posterior scalp with purulent drainage, warm, Dry, normal turgor. Course - Re-evaluation Re-evalutation: Scalp abscess drained with large amount of purulent material. Patient appears well. No fevers. She said that her blood pressure is usually in the high 90s over 60s. She is in no distress. No Abx indicated due to simple abscess without surrounding cellulitis. Will discharge back to shelter with return precautions. - Vital Signs Vital signs: Temp Pulse Resp BP Pulse Ox 98.6 F 92 20 95/61 L 96 09/25/16 20:33 09/25/16 19:00 09/25/16 20:33 09/25/16 19:00 09/25/16 20:33 Procedures - Incision and Drainage Left Head Time completed: 20:30 Type: Simple Anesthetic type: 1% Lidocaine w/epi mL's of anesthetic: 4 Blade size: 11 I&D procedure: Betadine prep applied, Sterile dressing applied Incision Method: Incision made by scalpel Amount/type of drainage: Purulent drainage, 8 mL Discharge - Discharge Clinical Impression: Scalp abscess Condition: Stable Disposition: HOME, SELF-CARE Additional Instructions: ABSCESS: You have an abscess (boil). This a pus-forming infection, usually due to staph. Some boils may be left to drain on their own, but most require lancing. From the time the tender lump first appears, it may be three or four days before the abscess is ready to marcel. Local heat and rest help at this stage of treatment. An antibiotic may prevent spread of the infection. Once the abscess is opened, packing may be placed into it. This is done so pus is not sealed inside by premature closure of the cavity. The packing will be removed at your follow-up visit or you may be advised to remove it yourself at home. Sometimes this packing must be replaced a few times during healing. The wound will heal with surprisingly little scar. Depending on the size and location of an abscess, healing can take one to four weeks. You may shower and wash the area around the incision site two or three times a day. Antibiotics may be prescribed, but are usually not necessary after an abscess has been drained. If you develop fever, chills, worsening pain, or increasing swelling in the area, call the doctor or return immediately. POST INCISION AND DRAINAGE: You have had an incision made to allow drainage of an abscess. The incision must remain open so that pus and debris can drain from the wound. If the abscess cavity is large, packing is placed. This keeps the tissues from collapsing and trapping pus inside, while the body shrinks the cavity. The packing may need to be replaced every day or two. The physician will instruct you on the packing. Keep a bulky dressing over the area. Replace it if it becomes saturated with blood or pus. Do not disturb the packing (if present). You may shower and cleanse the area with gentle soap and warm water two or three times a day. Local warmth may be soothing, and may promote faster healing. Return if you develop high fever or chills, or if you note spreading redness, increasing swelling, or increasing tenderness. FOLLOW-UP CARE: Most simple abscesses will not require a follow up visit. If you had packing placed in the abscess, remove it as instructed by the physician. If you have been referred to a physician for follow-up care, call the physicians office for an appointment as you were instructed or within the next two days. If you experience worsening or a significant change in your symptoms, return to the Emergency Department at any time for re-evaluation.
[2016-09-25] MEDS ORDERED: LIDOCAINE 1%/EPINEPHRINE INJ 20 ML VIAL INJ ONE (19:42)
[2016-09-25 20:59] VITALS: BP 136/79
== END 2016-09-25 20:58 | disposition home or self-care (01) ==
LOC: ER 18:42
PROC: 0H90XZZ Drainage of Scalp Skin, External Approach (ICD-10-PCS; principal; 2016-09-25)
DX: L02.811 Cutaneous abscess of head [any part, except face] (principal); E78.00 Pure hypercholesterolemia, unspecified; I10 Essential (primary) hypertension; E11.9 Type 2 diabetes mellitus without complications; Z88.3 Allergy status to other anti-infective agents; Z88.0 Allergy status to penicillin; Z88.2 Allergy status to sulfonamides; Z87.442 Personal history of urinary calculi; Z90.49 Acquired absence of other specified parts of digestive tract; Z96.653 Presence of artificial knee joint, bilateral; Z98.51 Tubal ligation status
CPT/HCPCS: 99283; 10060; J3490; A6266

== ENCOUNTER 2016-09-27 02:32 | Emergency (ER) | payer MEDICARE, MEDICAID ==
[2016-09-27] MEDS ORDERED: POLYETHYLENE GLYCOL 3350 POWDER 17 GM/1 PACKET PO ONE (02:41)
--- NOTE | 2016-09-27 02:43 | ER Document Report ---
ED General - General Stated Complaint: CONSTIPATION Time Seen by Provider: 09/27/16 02:41 Notes: Patient is a 65-year-old female who presents from home for hospice concerns of constipation. Patient has had 6 days without a bowel movement and reports that she feels very constipated. She denies any focal abdominal pain, nausea, vomiting and states she continues to pass flatus. She has not seen in the emergency department for similar presentations in the past. Nothing is new or different about her symptoms that prompted her come tonight she states only that the residential "finally sent me" tonight. No prior history of small bowel obstructions. She denies any additional complaints including chest pain, shortness of breath, fever, or confusion. Review of patient's medical record from the residential shows that she has been given senna apparently without relief. Nothing is been noted to worsen the patient's symptoms per her report. TRAVEL OUTSIDE OF THE [place] IN LAST 30 DAYS: No - Related Data Allergies/Adverse Reactions: ciprofloxacin [From Cipro] Allergy (Verified 09/01/16 12:47) Rash/Hives meperidine [Meperidine] Allergy (Verified 09/01/16 12:47) Rash/Hives methadone [Methadone] Allergy (Verified 09/01/16 12:47) Rash/Hives Penicillins Allergy (Verified 09/01/16 12:47) Anaphylaxis, Rash Sulfa (Sulfonamide Antibiotics) Allergy (Verified 09/01/16 12:47) Rash/Hives Past Medical History - General Information source: Patient - Social History Smoking Status: Never Smoker Frequency of alcohol use: None Drug Abuse: None Lives with: [facility] Family History: Reviewed & Not Pertinent - Past Medical History Cardiac Medical History: Reports: Hx Hypercholesterolemia, Hx Hypertension - 6 years- takes meds Denies: Hx Atrial Fibrillation, Hx Congestive Heart Failure, Hx Coronary Artery Disease, Hx Heart Attack, Hx Peripheral Vascular Disease, Hx Pulmonary Embolism, Hx Heart Murmur Pulmonary Medical History: Reports: Hx Sleep Apnea - uses CPAP Denies: Hx Asthma, Hx Bronchitis, Hx COPD, Hx Pneumonia, Hx Respiratory Failure, Hx Tuberculosis Neurological Medical History: Reports: Hx Migraine. Denies: Hx Cerebrovascular Accident, Hx Seizures Endocrine Medical History: Reports: Hx Diabetes Mellitus Type 2. Denies: Hx Graves' Disease, Hx Hyperthyroidism, Hx Hypothyroidism Renal/ Medical History: Reports: Hx Kidney Stones. Denies: Hx End Stage Renal Disease, Hx Peritoneal Dialysis Malignancy Medical History: Denies: Hx Lung Cancer GI Medical History: Reports: Hx Gastroesophageal Reflux Disease - takes meds, Hx Hiatal Hernia. Denies: Hx Crohn's Disease, Hx Irritable Bowel, Hx Liver Failure, Hx Ulcer Musculoskeltal Medical History: Reports Hx Arthritis, Denies Hx Fibromyalgia, Denies Hx Muscular Dystrophy Psychiatric Medical History: Reports: Hx Depression Denies: Hx Bipolar Disorder, Hx Post Traumatic Stress Disorder, Hx Schizophrenia Traumatic Medical History: Reports: Hx Fractures - closed, displaced fracture at right patella Infectious Medical History: Past Surgical History: Reports: Hx Section, Hx Cholecystectomy, Hx Orthopedic Surgery - bilat knee replacement, Hx Tubal Ligation. Denies: Hx Appendectomy, Hx Bowel Surgery, Hx Colostomy, Hx Coronary Artery Bypass Graft, Hx Gastric Bypass Surgery, Hx Herniorrhaphy, Hx Hysterectomy, Hx Mastectomy, Hx Pacemaker, Hx Tonsillectomy - Immunizations Immunizations up to date: Yes Hx Diphtheria, Pertussis, Tetanus Vaccination: Yes Hx Pneumococcal Vaccination: 07/07/15 Review of Systems - Review of Systems Notes: Constitutional: Negative for fever. HENT: Negative for sore throat. Eyes: Negative for visual changes. Cardiovascular: Negative for chest pain. Respiratory: Negative for shortness of breath. Gastrointestinal: Negative for abdominal pain, vomiting or diarrhea. Positive for constipation Genitourinary: Negative for dysuria. Musculoskeletal: Negative for back pain. Skin: Negative for rash. Neurological: Negative for headaches, weakness or numbness. 10 point ROS negative except as marked above and in HPI. Physical Exam - Vital signs Vitals: Temp Pulse Resp BP Pulse Ox 98.8 F 86 18 99/77 L 98 09/27/16 02:35 09/27/16 02:35 09/27/16 02:35 09/27/16 02:35 09/27/16 02:35 Interpretation: Normal Notes: PHYSICAL EXAMINATION: GENERAL: Well-appearing, well-nourished and in no acute distress. HEAD: Atraumatic, normocephalic. EYES: Pupils equal round and reactive to light, extraocular movements intact, sclera anicteric, conjunctiva are normal. ENT: nares patent, oropharynx clear without exudates. Moist mucous membranes. NECK: Normal range of motion, supple without lymphadenopathy LUNGS: Breath sounds clear to auscultation bilaterally and equal. No wheezes rales or rhonchi. HEART: Regular rate and rhythm without murmurs ABDOMEN: Soft, nontender, normoactive bowel sounds. No guarding, no rebound. No masses appreciated. EXTREMITIES: Normal range of motion, no pitting or edema. No cyanosis. NEUROLOGICAL: No focal neurological deficits. Moves all extremities spontaneously and on command. PSYCH: Normal mood, normal affect. SKIN: Warm, Dry, normal turgor, no rashes or lesions noted. Course - Re-evaluation Re-evalutation: 09/27/16 02:56 Patient presents with a complaint of not having a bowel movement in 6 days but denies any additional concerns or complaints. She has had really no abdominal tenderness on exam. Her clinical history is not consistent with an obstruction. She has bowel sounds easily on exam and has not had any vomiting. She notes that she continues to pass flatus. She has not received an aggressive regimen for her constipation at the nursing facility. Will obtain a KUB to evaluate the degree of constipation although I have no significant pretest probability for a small bowel obstruction or ileus. No indication for labs this time patient denies any symptoms whatsoever via not having a bowel movement for the past 6 days. 09/27/16 04:49 Patient has had complete relief of her sensation of abdominal fullness and has had a large amount of stool passage. KUB stated a possibility of an ileus versus a small bowel obstruction versus a nonspecific bowel gas pattern. I think the findings are much more consistent with the bowel gas pattern abnormality as opposed to a true ileus or obstruction is again patient has not had any vomiting, has continued to pass flatus while here in the emergency department has had resolution of her sensation of abdominal fullness after having multiple bowel movements. She is agreeable to avoiding a CT scan at this time. At this time will discharge with return precautions and follow-up recommendations. Verbal discharge instructions given a the bedside and opportunity for questions given. Medication warnings reviewed. Patient is in agreement with this plan and has verbalized understanding of return precautions and the need for primary care follow-up in the next 24-72 hours. - Vital Signs Vital signs: Temp Pulse Resp BP Pulse Ox 98.8 F 86 18 99/77 L 98 09/27/16 02:35 09/27/16 02:35 09/27/16 02:35 09/27/16 02:35 09/27/16 02:35 Discharge - Discharge Clinical Impression: Constipation Qualifiers: Constipation type: unspecified constipation type Qualified Code(s): K59.00 - Constipation, unspecified Condition: Good Disposition: HOME, SELF-CARE Instructions: Constipation ([facility]) Additional Instructions: Please follow-up with your primary care doctor in the next several days. Return if you develop abdominal pain, vomiting, fever, or any other symptoms that are worrisome to you.
[2016-09-27] MEDS ORDERED: MINERAL OIL 30 ML UDCUP ONE (03:11)
--- NOTE | 2016-09-27 03:17 | RADIOLOGY REPORT (SQ) ---
EXAM DESCRIPTION: KUB/ABDOMEN (SINGLE VIEW) COMPLETED DATE/TIME: 09/27/2016 2:53 am REASON FOR STUDY: eval sbo, constipation COMPARISON: 5.26.17 NUMBER OF VIEWS: One view. TECHNIQUE: Supine radiographic image of the abdomen acquired. LIMITATIONS: None. FINDINGS: BOWEL GAS PATTERN: Mild gaseous distention of small bowel measures up to 3.0 cm in the rig ht paracentral abdomen. Colonic stool retention involves the left colon and sigmoid. CALCIFICATIONS: No suspicious calcifications. SOFT TISSUES: No gross mass or suggestion of organomegaly. HARDWARE: Bilateral tubal ligation clips. BONES: Mild disc desiccation mild primary osteoarthritis. OTHER: No other significant finding. IMPRESSION: Mild nonspecific gaseous distention of the small bowel. Differential diagnosis includes ileus or minimal/partial obstructive process. TECHNICAL DOCUMENTATION: JOB ID: [id number] [employer]- All Rights Reserved
[2016-09-27] MEDS ORDERED: MAGNESIUM CITRATE 296 ML BOTTLE PO ONE (04:09)
[2016-09-27 05:50] VITALS: BP 122/84
== END 2016-09-27 05:50 | disposition home or self-care (01) ==
LOC: ER 02:32
DX: K59.00 Constipation, unspecified (principal); I10 Essential (primary) hypertension; E78.00 Pure hypercholesterolemia, unspecified; E11.9 Type 2 diabetes mellitus without complications; Z88.0 Allergy status to penicillin; Z88.2 Allergy status to sulfonamides; Z88.3 Allergy status to other anti-infective agents; Z87.442 Personal history of urinary calculi; Z90.49 Acquired absence of other specified parts of digestive tract; Z96.653 Presence of artificial knee joint, bilateral; Z98.51 Tubal ligation status
CPT/HCPCS: 99283; 74000; J3490 ×3

== ENCOUNTER 2016-10-12 14:01 | Emergency (ER) | payer MEDICARE, MEDICAID ==
--- NOTE | 2016-10-12 14:10 | ER Document Report ---
ED General - General Stated Complaint: BLOOD SUGAR PROBLEM Time Seen by Provider: 10/12/16 14:05 Notes: 66-year-old female with diabetes on insulin and glipizide presents from [facility] for low blood sugar. Per EMS the patient had no complaints was acting normally facility called because they could not get her blood sugar above 48. On EMS arrival her sugar was 88. She requires me clearly tells me that she ate scrabbled eggs toast and some mcdermott this morning for breakfast and was given her normal morning meds. She did not receive insulin or any injections today. She feels completely normal, not out of sorts and dizzy sweaty and has no neurologic symptoms or chest pain. TRAVEL OUTSIDE OF THE [place] IN LAST 30 DAYS: No - Related Data Allergies/Adverse Reactions: ciprofloxacin [From Cipro] Allergy (Verified 10/12/16 14:14) Rash/Hives meperidine [Meperidine] Allergy (Verified 10/12/16 14:14) Rash/Hives methadone [Methadone] Allergy (Verified 10/12/16 14:14) Rash/Hives Penicillins Allergy (Verified 10/12/16 14:14) Anaphylaxis, Rash Sulfa (Sulfonamide Antibiotics) Allergy (Verified 10/12/16 14:14) Rash/Hives Past Medical History - Social History Smoking Status: Unknown if Ever Smoked Family History: Reviewed & Not Pertinent - Past Medical History Cardiac Medical History: Reports: Hx Hypercholesterolemia, Hx Hypertension - 6 years- takes meds Denies: Hx Atrial Fibrillation, Hx Congestive Heart Failure, Hx Coronary Artery Disease, Hx Heart Attack, Hx Peripheral Vascular Disease, Hx Pulmonary Embolism, Hx Heart Murmur Pulmonary Medical History: Reports: Hx Sleep Apnea - uses CPAP Denies: Hx Asthma, Hx Bronchitis, Hx COPD, Hx Pneumonia, Hx Respiratory Failure, Hx Tuberculosis Neurological Medical History: Reports: Hx Migraine. Denies: Hx Cerebrovascular Accident, Hx Seizures Endocrine Medical History: Reports: Hx Diabetes Mellitus Type 2. Denies: Hx Graves' Disease, Hx Hyperthyroidism, Hx Hypothyroidism Renal/ Medical History: Reports: Hx Kidney Stones. Denies: Hx End Stage Renal Disease, Hx Peritoneal Dialysis Malignancy Medical History: Denies: Hx Lung Cancer GI Medical History: Reports: Hx Gastroesophageal Reflux Disease - takes meds, Hx Hiatal Hernia. Denies: Hx Crohn's Disease, Hx Irritable Bowel, Hx Liver Failure, Hx Ulcer Musculoskeltal Medical History: Reports Hx Arthritis, Denies Hx Fibromyalgia, Denies Hx Muscular Dystrophy Psychiatric Medical History: Reports: Hx Depression Denies: Hx Bipolar Disorder, Hx Post Traumatic Stress Disorder, Hx Schizophrenia Traumatic Medical History: Reports: Hx Fractures - closed, displaced fracture at right patella Infectious Medical History: Past Surgical History: Reports: Hx Section, Hx Cholecystectomy, Hx Orthopedic Surgery - bilat knee replacement, Hx Tubal Ligation. Denies: Hx Appendectomy, Hx Bowel Surgery, Hx Colostomy, Hx Coronary Artery Bypass Graft, Hx Gastric Bypass Surgery, Hx Herniorrhaphy, Hx Hysterectomy, Hx Mastectomy, Hx Pacemaker, Hx Tonsillectomy - Immunizations Immunizations up to date: Yes Hx Diphtheria, Pertussis, Tetanus Vaccination: Yes Hx Pneumococcal Vaccination: 07/07/15 Review of Systems - Review of Systems Notes: REVIEW OF SYSTEMS GEN: Denies fever, chills, weight loss ENT: Denies sore throat, nasal discharge, ear pain EYES: Denies blurry vision, eye pain, discharge CV: Denies chest pain, palpitations, edema RESP: Denies cough, shortness of breath, wheezing GI: Denies abdominal pain, nausea, vomiting, diarrhea MSK: Denies joint pain/swelling, edema, SKIN: Denies rash, skin lesions LYMPH: Denies swollen glands/lymph nodes NEURO: Denies headache, focal weakness or numbness, dizziness PSYCH: Denies depression, suicidal or homicidal ideation PHYSICAL EXAMINATION General: No acute distress, well-nourished Head: Atraumatic, normocephalic ENT: Mouth normal, oropharynx moist, no exudates or tonsillar enlargement Eyes: Conjunctiva normal, pupils equal, lids normal Neck: No JVD, supple, no guarding CVS: Normal rate, regular rhythm, no murmurs Resp: No resp distress, equal and normal breath sounds bilaterally GI: Nondistended, soft, no tenderness to palpation, no rebound or guarding Ext: No deformities, no edema, normal range of motion in upper and lower ext Back: No CVA or midline TTP Skin: No rash, warm Lymphatic: No lymphadeopathy noted Neuro: Awake, alert. Face symmetric. GCS 15. Physical Exam - Vital signs Vitals: Temp Pulse Resp BP Pulse Ox 98.2 F 101 H 17 108/69 98 10/12/16 14:05 10/12/16 14:05 10/12/16 14:05 10/12/16 14:05 10/12/16 14:05 Course - Re-evaluation Re-evalutation: 10/12/16 14:09 Patient presents with reported hypoglycemia at her facility although she was apparently asymptomatic. Her sugar was normal for EMS. There is a question as to whether the sugar was accurate, but since she did receive glipizide this morning I will observe her feet her carbohydrates and recheck her blood sugar 1 hour. Will also keep an eye out for symptoms. She has no symptoms whatsoever is not febrile I do not suspect sepsis inadequate medication or other metabolic emergencies at this time. She is quite well-appearing. 10/12/16 15:16 Was able to eat crackers. She remains asymptomatic her blood sugar is 90. Safe for discharge back to facility. I included in her discharge instructions to hold her insulin today and not give any diabetes medication tomorrow until her sugars checked. - Vital Signs Vital signs: Temp Pulse Resp BP Pulse Ox 98.2 F 101 H 17 108/69 98 10/12/16 14:05 10/12/16 14:05 10/12/16 14:05 10/12/16 14:05 10/12/16 14:05 Discharge - Discharge Clinical Impression: Hypoglycemia Condition: Good Disposition: HOME, SELF-CARE Instructions: Hypoglycemia ([facility]) Additional Instructions: This patient was seen in the emergency department for hypoglycemia. Her blood sugar remained normal throughout her emergency department stay. Since she has received her glipizide for the day, please do not give her insulin at all today. Please make sure she has normal meals and snacks and recheck her blood sugar when indicated. Please restart her insulin tomorrow assuming her morning blood sugar is within the normal limits.
[2016-10-12 14:14] VITALS: BP 108/69
== END 2016-10-12 18:45 | disposition home or self-care (01) ==
LOC: ER 14:01
DX: E11.649 Type 2 diabetes mellitus with hypoglycemia without coma (principal); Z79.4 Long term (current) use of insulin; Z79.84 Long term (current) use of oral hypoglycemic drugs; I10 Essential (primary) hypertension; Z88.1 Allergy status to other antibiotic agents; Z88.0 Allergy status to penicillin; Z88.2 Allergy status to sulfonamides; Z88.5 Allergy status to narcotic agent
CPT/HCPCS: 82962; 87493; 99284

== ENCOUNTER 2016-10-31 18:25 | Emergency (ER) | payer MEDICARE, MEDICAID ==
--- NOTE | 2016-10-31 18:55 | ER Document Report ---
ED Skin Rash/Insect Bite/Abscs - General Information source: Patient TRAVEL OUTSIDE OF THE [place] IN LAST 30 DAYS: No - HPI Patient complains to provider of: Other - abscess Skin Character: Abscess <DAT GRAHAM - Last Filed: 10/31/16 18:50> <LEO JIMENEZ - Last Filed: 11/01/16 00:31> - General Chief Complaint: Abscess Stated Complaint: ABSCESS Time Seen by Provider: 10/31/16 18:38 Notes: Patient is a 66 year old female with a history of diabetes with complaints of an abscess on her right scalp x2 weeks. Patient states it is painful to the touch but denies any drainage from the area or any known fevers. Patient states her sugars have been has high as 400. Patient also has burning with urination x2 days. (DAT GRAHAM) - Related Data Allergies/Adverse Reactions: ciprofloxacin [From Cipro] Allergy (Verified 10/31/16 18:36) Rash/Hives meperidine [Meperidine] Allergy (Verified 10/31/16 18:36) Rash/Hives methadone [Methadone] Allergy (Verified 10/31/16 18:36) Rash/Hives Penicillins Allergy (Verified 10/31/16 18:36) Anaphylaxis, Rash Sulfa (Sulfonamide Antibiotics) Allergy (Verified 10/31/16 18:36) Rash/Hives Past Medical History - General Information source: Patient - Social History Smoking Status: Unknown if Ever Smoked Chew tobacco use (# tins/day): No Frequency of alcohol use: None Drug Abuse: None Family History: Reviewed & Not Pertinent - Past Medical History Cardiac Medical History: Reports: Hx Hypercholesterolemia, Hx Hypertension - 6 years- takes meds Denies: Hx Atrial Fibrillation, Hx Congestive Heart Failure, Hx Coronary Artery Disease, Hx Heart Attack, Hx Peripheral Vascular Disease, Hx Pulmonary Embolism, Hx Heart Murmur Pulmonary Medical History: Reports: Hx Sleep Apnea - uses CPAP Denies: Hx Asthma, Hx Bronchitis, Hx COPD, Hx Pneumonia, Hx Respiratory Failure, Hx Tuberculosis Neurological Medical History: Reports: Hx Migraine. Denies: Hx Cerebrovascular Accident, Hx Seizures Endocrine Medical History: Reports: Hx Diabetes Mellitus Type 2. Denies: Hx Graves' Disease, Hx Hyperthyroidism, Hx Hypothyroidism Renal/ Medical History: Reports: Hx Kidney Stones. Denies: Hx End Stage Renal Disease, Hx Peritoneal Dialysis Malignancy Medical History: Denies: Hx Lung Cancer GI Medical History: Reports: Hx Gastroesophageal Reflux Disease - takes meds, Hx Hiatal Hernia. Denies: Hx Crohn's Disease, Hx Irritable Bowel, Hx Liver Failure, Hx Ulcer Musculoskeltal Medical History: Reports Hx Arthritis, Denies Hx Fibromyalgia, Denies Hx Muscular Dystrophy Psychiatric Medical History: Reports: Hx Depression Denies: Hx Bipolar Disorder, Hx Post Traumatic Stress Disorder, Hx Schizophrenia Traumatic Medical History: Reports: Hx Fractures - closed, displaced fracture at right patella Infectious Medical History: Past Surgical History: Reports: Hx Section, Hx Cholecystectomy, Hx Orthopedic Surgery - bilat knee replacement, Hx Tubal Ligation. Denies: Hx Appendectomy, Hx Bowel Surgery, Hx Colostomy, Hx Coronary Artery Bypass Graft, Hx Gastric Bypass Surgery, Hx Herniorrhaphy, Hx Hysterectomy, Hx Mastectomy, Hx Pacemaker, Hx Tonsillectomy - Immunizations Immunizations up to date: Yes Hx Diphtheria, Pertussis, Tetanus Vaccination: Yes Hx Pneumococcal Vaccination: 07/07/15 <DAT GRAHAM - Last Filed: 10/31/16 18:50> Review of Systems - Review of Systems Constitutional: No symptoms reported. denies: Fever EENT: No symptoms reported Cardiovascular: No symptoms reported Respiratory: No symptoms reported Gastrointestinal: No symptoms reported Genitourinary: No symptoms reported Female Genitourinary: No symptoms reported Musculoskeletal: No symptoms reported Skin: See HPI, Other - abscess Hematologic/Lymphatic: No symptoms reported Neurological/Psychological: No symptoms reported <DAT GRAHAM - Last Filed: 10/31/16 18:50> Physical Exam <DAT GRAHAM - Last Filed: 10/31/16 18:50> <LEO JIMENEZ - Last Filed: 11/01/16 00:31> - Vital signs Vitals: Temp Pulse Resp BP Pulse Ox 98.7 F 88 16 100/84 99 10/31/16 18:26 10/31/16 18:26 10/31/16 18:26 10/31/16 18:26 10/31/16 18:26 - Notes Notes: GENERAL: Alert, interacts well. No acute distress. HEAD: Normocephalic, atraumatic. EYES: Pupils equal, round, and reactive to light. Extraocular movements intact. No conjunctival injection. ENT: Oral mucosa moist, tongue midline. NECK: Full range of motion. Supple. Trachea midline. LUNGS: Clear to auscultation bilaterally, no wheezes, rales, or rhonchi. No respiratory distress. HEART: Regular rate and rhythm. No murmurs, gallops, or rubs. ABDOMEN: Soft, non-tender. Non-distended. Bowel sounds present in all 4 quadrants. EXTREMITIES: Moves all 4 extremities spontaneously. No edema. No cyanosis. NEUROLOGICAL: Alert and oriented x3. Normal speech. PSYCH: Normal affect, normal mood. SKIN: Area of crusting and fluctuance 2cm wide on right side of head just above latter-day and just behind hairline with surrounding erythema greater than 12cm that tracks down to the right eye (DAT GRAHAM) Course <DAT GRAHAM - Last Filed: 10/31/16 18:50> - Laboratory Result Diagrams: 10/31/16 19:04 10/31/16 19:04 <LEO JIMENEZ - Last Filed: 11/01/16 00:31> - Re-evaluation Re-evalutation: 10/31/16 22:38 CBC shows leukocytosis, mild anemia, markedly elevated platelets. CMP grossly unremarkable with the exception of elevated glucose at 275, she has a known diabetic. CT scan of the head shows no intracranial involvement with the abscess, there is soft tissue swelling of the scalp. Patient has both a urinary tract infection and a scalp abscess, she was given clindamycin to treat both these. Urine culture was sent. Incision and drainage of the scalp abscess was obtained any wound culture was obtained and sent. Patient will be sent back to [facility] with clindamycin by mouth, she should return for worsening swelling, any fevers or any new or concerning symptoms. (LEO JIMENEZ) - Vital Signs Vital signs: Temp Pulse Resp BP Pulse Ox 98.0 F 78 18 117/88 H 98 10/31/16 22:36 10/31/16 22:36 10/31/16 22:36 10/31/16 22:36 10/31/16 22:36 - Laboratory Laboratory results interpreted by me: 10/31/16 10/31/16 10/31/16 19:04 19:04 19:04 WBC 12.9 H RBC 3.45 L Hgb 10.0 L Hct 29.6 L RDW 15.6 H Plt Count 751 H Seg Neutrophils % 78.5 H Lymphocytes % 12.4 L Absolute Neutrophils 10.1 H Sodium 136.2 L Glucose 275 H Direct Bilirubin 0.5 H Albumin 2.8 L Urine Protein 100 H Urine Blood SMALL H Urine Nitrite POSITIVE H Ur Leukocyte Esterase LARGE H Discharge <DAT GRAHAM - Last Filed: 10/31/16 18:50> <LEO JIMENEZ - Last Filed: 11/01/16 00:31> - Discharge Clinical Impression: Scalp abscess Urinary tract infection Qualifiers: Urinary tract infection type: acute cystitis Hematuria presence: with hematuria Qualified Code(s): N30.01 - Acute cystitis with hematuria Type 2 diabetes mellitus with hyperglycemia Qualifiers: Diabetes mellitus halfway insulin use: unspecified halfway insulin use status Qualified Code(s): E11.65 - Type 2 diabetes mellitus with hyperglycemia Condition: Stable Disposition: HOME, SELF-CARE Additional Instructions: Please take the clindamycin as directed until it is gone. If the redness to her face gets worse or the swelling in your head gets bigger please return to the emergency department. You also have urinary tract infection. The clindamycin should help to treat this to. Come back to the emergency department if you develop a fever. Hold warm compresses on your head for 10 minutes 4 times a day. Prescriptions: Clindamycin HCl 300 mg PO Q6H #28 capsule Scribe Attestation: 11/01/16 00:31 I personally performed the services described in the documentation, reviewed and edited the documentation which was dictated to the scribe in my presence, and it accurately records my words and actions. (LEO JIMENEZ) Scribe Documentation - Scribe Written by Jayda:: jayda Blue, 10/31/2016, [id number] acting as scribe for :: Fletcher <DAT GRAHAM - Last Filed: 10/31/16 18:50>
[2016-10-31 19:17] LABS: ABSOLUTE BASOPHILS # (AUTO) 0.1 10^3/uL (0.0-0.2); ABSOLUTE EOSINOPHILS # (AUTO) 0.1 10^3/uL (0.0-0.6); ABSOLUTE LYMPHOCYTES (AUTO) 1.6 10^3/uL (0.5-4.7); ABSOLUTE NEUT (AUTO) 10.1 10^3/uL (1.7-8.2); BASOPHILS % (AUTO) 0.5 % (0-2); EOSINOPHILS % (AUTO) 0.9 % (0-6); HEMATOCRIT 29.6 % (36.0-47.0); HGB HCT DIFFERENCE 0.4; LYMPHOCYTES % (AUTO) 12.4 % (13-45); MEAN CORPUSCULAR HEMOGLOBIN 28.9 pg (27.0-33.4); MEAN CORPUSCULAR HGB CONC 33.7 g/dL (32.0-36.0); MEAN CORPUSCULAR VOLUME 86 fl (80-97); MONOCYTES % (AUTO) 7.7 % (3-13); RED BLOOD COUNT 3.45 10^6/uL (3.72-5.28); RED CELL DISTRIBUTION WIDTH 15.6 % (11.5-14.0); SEGMENTED NEUTROPHILS % (AUTO) 78.5 % (42-78); WHITE BLOOD COUNT 12.9 10^3/uL (4.0-10.5)
[2016-10-31 19:26] LABS: APPEARANCE,URINE TURBID; BILIRUBIN,URINE NEGATIVE (NEGATIVE); GLUCOSE, URINE NEGATIVE (NEGATIVE); KETONES,URINE NEGATIVE (NEGATIVE); LEUKOCYTE ESTERASE,URINE LARGE (NEGATIVE); NITRITE,URINE POSITIVE (NEGATIVE); PROTEIN,URINE 100 mg/dL (NEGATIVE); URINE SPECIFIC GRAVITY 1.006; UROBILINOGEN,URINE NEGATIVE mg/dL (<2.0)
[2016-10-31] MEDS ORDERED: CLINDAMYCIN 300 MG/D5W RTU 50 ML IV ONE (19:32)
[2016-10-31 19:48] LABS: ALANINE AMINOTRANSFERASE 20 U/L (9-52); ALBUMIN 2.8 g/dL (3.5-5.0); ALKALINE PHOSPHATASE 100 U/L (38-126); ANION GAP 12 (5-19); ASPARTATE AMINO TRANSFERASE 16 U/L (14-36); BILIRUBIN,DIRECT 0.5 mg/dL (0.0-0.4); BILIRUBIN,TOTAL 0.5 mg/dL (0.2-1.3); BLOOD UREA NITROGEN 15 mg/dL (7-20); CALCIUM 8.9 mg/dL (8.4-10.2); CARBON DIOXIDE 23 mmol/L (22-30); CHLORIDE 101 mmol/L (98-107); CREATININE RESULT 0.82 mg/dL (0.52-1.25); GLUCOSE 275 mg/dL (75-110); POTASSIUM 4.2 mmol/L (3.6-5.0); SODIUM 136.2 mmol/L (137-145); TOTAL PROTEIN 6.5 g/dL (6.3-8.2)
--- NOTE | 2016-10-31 19:59 | RADIOLOGY REPORT (SQ) ---
EXAM DESCRIPTION: CT HEAD WITHOUT COMPLETED DATE/TIME: 10/31/2016 7:46 pm REASON FOR STUDY: scalp abscess, right upper COMPARISON: 09/01/2016 TECHNIQUE: Axial images acquired through the brain without intravenous contrast. Images reviewed wi th bone, brain and subdural windows. Images stored on PACS. All CT scanners at this facility use dose modulation, iterative reconstruction, and/or weight based d osing when appropriate to reduce radiation dose to as low as reasonably achievable (ALARA). [facility]: Dose Right [facility]: CareDose [facility]: Dose Right [facility]: Teradose 4D [facility]: Smart Parenthoods RADIATION DOSE: Up-to-date CT equipment and radiation dose reduction techniques were employed. CTDIv ol: 49.0 mGy. DLP: 783 mGy-cm. mGy. LIMITATIONS: None. FINDINGS: VENTRICLES: Prominent. CEREBRUM: No masses. No hemorrhage. No midline shift. Areas of low density in the white matter mos t likely due to chronic micro-vascular ischemic change. No evidence for acute infarction. CEREBELLUM: No masses. No hemorrhage. No alteration of density. No evidence for acute infarction. EXTRAAXIAL SPACES: Mild age-related involutional change. No fluid collections. No masses. ORBITS AND GLOBE: No intra- or extraconal masses. Normal contour of globe without masses. CALVARIUM: No fracture. No evidence for bony involvement by osteomyelitis. PARANASAL SINUSES: No fluid or mucosal thickening. SOFT TISSUES: Soft tissue swelling is identified in the superficial soft tissues of the right parieta l region. OTHER: No other significant finding. IMPRESSION: MILD CHRONIC CHANGES OF ATROPHY AND MICROVASCULAR ISCHEMIA. Soft tissue swelling is jim ntified in the superficial soft tissues of the right parietal region. TECHNICAL DOCUMENTATION: JOB ID: [id number] Quality ID # [id number]: Final reports with documentation of one or more dose reduction techniques (e.g., Au tomated exposure control, adjustment of the mA and/or kV according to patient size, use of iterative reconstruction technique) 2010 [employer]- All Rights Reserved
[2016-10-31] MEDS ORDERED: LIDOCAINE 1% INJ-PF (10 MG/ML) 30 ML SDV INJ ONE (20:47)
[2016-10-31] MEDS ORDERED: HYDROCODONE/ACETAMINOPHEN 5-325 MG TABLET PO ONE (23:15)
[2016-11-01 01:37] VITALS: BP 110/80
== END 2016-11-01 01:36 | disposition home or self-care (01) ==
LOC: ER 18:25
PROC: 0H90XZZ Drainage of Scalp Skin, External Approach (ICD-10-PCS; principal; 2016-10-31)
DX: L02.811 Cutaneous abscess of head [any part, except face] (principal); N30.01 Acute cystitis with hematuria; E11.65 Type 2 diabetes mellitus with hyperglycemia
CPT/HCPCS: 10060; 99285; 96365; 36415; 87040; 87086; 87070; 87205; 85025; 87075; 87077; 87088; 80053; 81001; 87186; 70450; J3490 ×2; A9270

== ENCOUNTER 2016-11-05 01:56 | Emergency (ER) | payer MEDICARE, MEDICAID ==
[2016-11-05] MEDS ORDERED: DEXTROSE 50%-WATER 25 GM/50 ML DISP.SYRIN IV ONE (02:15)
--- NOTE | 2016-11-05 02:33 | ER Document Report ---
ED General - General Chief Complaint: Fall Stated Complaint: FALL,FACIAL INJURYS Time Seen by Provider: 11/05/16 02:25 Notes: Patient is a 66-year-old female presents with complaint of a fall. She says she tripped and fell and hit her head. Blood sugars also found to be low at 38. I did review her records where she was recently seen for low blood sugar. She does take insulin as well as glipizide. She currently feels well and has no complaints other than hitting her head. She denies any neck pain. No back pain. No chest or abdominal pain. No leg or arm pain. She denies loss of consciousness. No other complaints at this time. TRAVEL OUTSIDE OF THE [place] IN LAST 30 DAYS: No - Related Data Allergies/Adverse Reactions: ciprofloxacin [From Cipro] Allergy (Verified 10/31/16 18:36) Rash/Hives meperidine [Meperidine] Allergy (Verified 10/31/16 18:36) Rash/Hives methadone [Methadone] Allergy (Verified 10/31/16 18:36) Rash/Hives Penicillins Allergy (Verified 10/31/16 18:36) Anaphylaxis, Rash Sulfa (Sulfonamide Antibiotics) Allergy (Verified 10/31/16 18:36) Rash/Hives Past Medical History - Social History Smoking Status: Unknown if Ever Smoked Frequency of alcohol use: None Drug Abuse: None Family History: Reviewed & Not Pertinent - Past Medical History Cardiac Medical History: Reports: Hx Hypercholesterolemia, Hx Hypertension - 6 years- takes meds Denies: Hx Atrial Fibrillation, Hx Congestive Heart Failure, Hx Coronary Artery Disease, Hx Heart Attack, Hx Peripheral Vascular Disease, Hx Pulmonary Embolism, Hx Heart Murmur Pulmonary Medical History: Reports: Hx Sleep Apnea - uses CPAP Denies: Hx Asthma, Hx Bronchitis, Hx COPD, Hx Pneumonia, Hx Respiratory Failure, Hx Tuberculosis Neurological Medical History: Reports: Hx Migraine. Denies: Hx Cerebrovascular Accident, Hx Seizures Endocrine Medical History: Reports: Hx Diabetes Mellitus Type 2. Denies: Hx Graves' Disease, Hx Hyperthyroidism, Hx Hypothyroidism Renal/ Medical History: Reports: Hx Kidney Stones. Denies: Hx End Stage Renal Disease, Hx Peritoneal Dialysis Malignancy Medical History: Denies: Hx Lung Cancer GI Medical History: Reports: Hx Gastroesophageal Reflux Disease - takes meds, Hx Hiatal Hernia. Denies: Hx Crohn's Disease, Hx Irritable Bowel, Hx Liver Failure, Hx Ulcer Musculoskeltal Medical History: Reports Hx Arthritis, Denies Hx Fibromyalgia, Denies Hx Muscular Dystrophy Psychiatric Medical History: Reports: Hx Depression Denies: Hx Bipolar Disorder, Hx Post Traumatic Stress Disorder, Hx Schizophrenia Traumatic Medical History: Reports: Hx Fractures - closed, displaced fracture at right patella Infectious Medical History: Past Surgical History: Reports: Hx Section, Hx Cholecystectomy, Hx Orthopedic Surgery - bilat knee replacement, Hx Tubal Ligation. Denies: Hx Appendectomy, Hx Bowel Surgery, Hx Colostomy, Hx Coronary Artery Bypass Graft, Hx Gastric Bypass Surgery, Hx Herniorrhaphy, Hx Hysterectomy, Hx Mastectomy, Hx Pacemaker, Hx Tonsillectomy - Immunizations Immunizations up to date: Yes Hx Diphtheria, Pertussis, Tetanus Vaccination: Yes Hx Pneumococcal Vaccination: 07/07/15 Review of Systems - Review of Systems Notes: My Normal Review Basic REVIEW OF SYSTEMS: CONSTITUTIONAL : Denies fever, chills, or sweats. Denies recent illness. EENT: Denies eye, ear, throat, or mouth pain or symptoms. Denies nasal or sinus congestion. CARDIOVASCULAR: Denies chest pain. RESPIRATORY: Denies cough, cold, or chest congestion. Denies shortness of breath, difficulty breathing, or wheezing. GASTROINTESTINAL: Denies abdominal pain. Denies nausea, vomiting, or diarrhea. Denies constipation. Last BM: ENITOURINARY: Denies difficulty urinating, painful urination, burning, frequency, or blood in urine. FEMALE GENITOURINARY: Denies vaginal bleeding, abnormal or irregular periods. LMP: MUSCULOSKELETAL: Denies neck or back pain or joint pain or swelling. SKIN: Denies rash or skin lesions. NEUROLOGICAL: Denies altered mental status or loss of consciousness. mild headache. Denies weakness or paralysis or loss of use of either side. Denies problems with gait or speech. Denies sensory or motor loss. PSYCHIATRIC: Denies anxiety or stress or depression. ALL OTHER SYSTEMS REVIEWED AND NEGATIVE. Physical Exam - Vital signs Vitals: BP Pulse Ox 109/54 L 99 11/05/16 02:07 11/05/16 02:07 - Notes Notes: General Appearance: Well nourished, alert, cooperative, no acute distress, no obvious discomfort. Vitals: reviewed, See vital signs table. Head: Hematoma above right eye. No active bleeding. Patient has a small area of swelling over the right parietal skull scalp that has a area of yellow crusting consistent with her recent cyst incision and drainage. Eyes: PERRL, EOMI, Conjuctiva clear Mouth: No decreasd moisture Throat: No tonsillar inflammation, No airway obstruction, No lymphadenopathy Neck: Supple, no neck tenderness, full range of motion of neck without pain. Lungs: No wheezing, No rales, No rhonci, No accessory muscle use, good air exchange bilaterally. Heart: Normal rate, Regular rythm, No murmur, no rub Abdomen: Normal BS, soft, No rigidity, No abdominal tenderness, No guarding, no rebound, no abdominal masses, no organomegaly Extremities: strength 5/5 in all extremities, good pulses in all extremities, no swelling or tenderness in the extremities, no edema. Full range of motion of hips without pain. Skin: warm, dry, appropriate color, no rash Neuro: speech clear, oriented x 3, normal affect, responds appropriately to questions. Cranial nerves II through XII are intact. Distal sensation intact. Course - Re-evaluation Re-evalutation: 11/05/16 06:[address] scan is negative. She does not have a suturable laceration. She has just a small superficial skin abrasion that does not require any closure. She has no active bleeding. She did have the area of her parietal scalp which is a cyst that she recently had drained. This is per her history. Patient did have some hypoglycemia but this resolved after receiving dextrose and also eating. Sugars remain normal. I did see in records where she has been in a few times for hypoglycemia. She is on glipizide. I wrote in her discharge instructions to have her stop taking this medication as it most likely is causing her hypoglycemia. Patient is also on insulin which I will have her continue to take for now. Patient to return to ER if she has vomiting, severe headache, or feels unwell. Patient agrees with plan and will be discharged home. Dictation of this chart was performed using voice recognition software; therefore, there may be some unintended grammatical errors. - Vital Signs Vital signs: Temp Pulse Resp BP Pulse Ox 97.6 F 78 18 92/69 L 100 11/05/16 02:16 11/05/16 02:16 11/05/16 02:16 11/05/16 05:40 11/05/16 05:40 - Laboratory Laboratory results interpreted by me: 11/05/16 11/05/16 03:00 05:10 POC Glucose 125 H 129 H Discharge - Discharge Clinical Impression: Abrasion, Hypoglycemia Minor head injury without loss of consciousness Qualifiers: Encounter type: initial encounter Qualified Code(s): S09.90XA - Unspecified injury of head, initial encounter Condition: Good Disposition: HOME, SELF-CARE Additional Instructions: Please discontinue patient's Glipizide as I suspect this medication is causing her blood sugar to drop. It is okay to continue the Insulin that she has prescribed for her. Please return to the ER immediately if Mrs. Wong has vomiting, severe headache, or is not acting appropriately.
--- NOTE | 2016-11-05 03:32 | RADIOLOGY REPORT (SQ) ---
EXAM DESCRIPTION: CT HEAD WITHOUT COMPLETED DATE/TIME: 11/05/2016 3:15 am REASON FOR STUDY: trauma COMPARISON: 10/31/2016. TECHNIQUE: Axial images acquired through the brain without intravenous contrast. Images reviewed wi th bone, brain and subdural windows. Images stored on PACS. All CT scanners at this facility use dose modulation, iterative reconstruction, and/or weight based d osing when appropriate to reduce radiation dose to as low as reasonably achievable (ALARA). [facility]: Dose Right [facility]: CareDose [facility]: Dose Right [facility]: Teradose 4D [facility]: Smart [employer] RADIATION DOSE: Up-to-date CT equipment and radiation dose reduction techniques were employed. CTDIv ol: 49.0 mGy. DLP: 881 mGy-cm. mGy. LIMITATIONS: None. FINDINGS: VENTRICLES: Normal size and contour. CEREBRUM: No masses. No hemorrhage. No midline shift. Normal hodge/white matter differentiation. N o evidence for acute infarction. Mild cerebral volume loss. CEREBELLUM: No masses. No hemorrhage. No alteration of density. No evidence for acute infarction. EXTRAAXIAL SPACES: No fluid collections. No masses. ORBITS AND GLOBE: No intra- or extraconal masses. Normal contour of globe without masses. CALVARIUM: No fracture. PARANASAL SINUSES: No fluid or mucosal thickening. SOFT TISSUES: Moderate diffuse swelling -hematoma of the right supraorbital-frontal scalp and of the right mid parietal scalp. OTHER: No other significant finding. IMPRESSION: Multifocal scalp swelling -hematoma. No acute intracranial findings. TECHNICAL DOCUMENTATION: JOB ID: [id number] Quality ID # [id number]: Final reports with documentation of one or more dose reduction techniques (e.g., Au tomated exposure control, adjustment of the mA and/or kV according to patient size, use of iterative reconstruction technique) 2010 [employer] All Rights Reserved
[2016-11-05 06:04] VITALS: BP 106/66
== END 2016-11-05 06:04 | disposition home or self-care (01) ==
LOC: ER 01:56
DX: S00.11XA Contusion of right eyelid and periocular area, initial encounter (principal); W19.XXXA Unspecified fall, initial encounter; E11.649 Type 2 diabetes mellitus with hypoglycemia without coma; Z79.4 Long term (current) use of insulin; Z79.84 Long term (current) use of oral hypoglycemic drugs; I10 Essential (primary) hypertension; Z88.1 Allergy status to other antibiotic agents; Z88.5 Allergy status to narcotic agent; Z88.2 Allergy status to sulfonamides; Z87.892 Personal history of anaphylaxis; Z88.0 Allergy status to penicillin; Z98.890 Other specified postprocedural states
CPT/HCPCS: 99285; 96374; 82962; 70450; J3490

== ENCOUNTER 2016-11-10 13:35 | Inpatient (IN) | payer MEDICARE, MEDICAID ==
[2016-11-10] MEDS ORDERED: ONDANSETRON HCL INJ/PF 4 MG/2 ML SDV IV ONE ×2 (14:09→16:46)
[2016-11-10] MEDS ORDERED: NORMAL SALINE 1000 ML 1,000 ML IV ONE ×2 (14:10)
[2016-11-10 14:36] LABS: ABSOLUTE BASOPHILS # (AUTO) 0.1 10^3/uL (0.0-0.2); ABSOLUTE EOSINOPHILS # (AUTO) 0.1 10^3/uL (0.0-0.6); ABSOLUTE LYMPHOCYTES (AUTO) 1.6 10^3/uL (0.5-4.7); ABSOLUTE MONOCYTES (AUTO) 0.7 10^3/uL (0.1-1.4); ABSOLUTE NEUT (AUTO) 8.1 10^3/uL (1.7-8.2); BASOPHILS % (AUTO) 0.8 % (0-2); EOSINOPHILS % (AUTO) 0.5 % (0-6); HEMATOCRIT 32.6 % (36.0-47.0); HEMOGLOBIN 10.5 g/dL (12.0-15.5); HGB HCT DIFFERENCE -1.1; LYMPHOCYTES % (AUTO) 14.9 % (13-45); MEAN CORPUSCULAR HEMOGLOBIN 27.6 pg (27.0-33.4); MEAN CORPUSCULAR HGB CONC 32.3 g/dL (32.0-36.0); MEAN CORPUSCULAR VOLUME 86 fl (80-97); RED BLOOD COUNT 3.81 10^6/uL (3.72-5.28); RED CELL DISTRIBUTION WIDTH 16.2 % (11.5-14.0); SEGMENTED NEUTROPHILS % (AUTO) 76.8 % (42-78); WHITE BLOOD COUNT 10.5 10^3/uL (4.0-10.5)
[2016-11-10 15:01] LABS: ALANINE AMINOTRANSFERASE 18 U/L (9-52); ALBUMIN 3.3 g/dL (3.5-5.0); ALKALINE PHOSPHATASE 97 U/L (38-126); ANION GAP 12 (5-19); ASPARTATE AMINO TRANSFERASE 23 U/L (14-36); BILIRUBIN,DIRECT 0.5 mg/dL (0.0-0.4); BILIRUBIN,TOTAL 0.5 mg/dL (0.2-1.3); BLOOD UREA NITROGEN 34 mg/dL (7-20); CALCIUM 8.8 mg/dL (8.4-10.2); CARBON DIOXIDE 21 mmol/L (22-30); CHLORIDE 103 mmol/L (98-107); CREATININE RESULT 1.43 mg/dL (0.52-1.25); GLUCOSE 57 mg/dL (75-110); LIPASE 23.1 U/L (23-300); POTASSIUM 4.5 mmol/L (3.6-5.0); SODIUM 135.8 mmol/L (137-145); TOTAL PROTEIN 7.3 g/dL (6.3-8.2)
[2016-11-10 15:06] LABS: APPEARANCE,URINE TURBID; BILIRUBIN,URINE NEGATIVE (NEGATIVE); GLUCOSE, URINE NEGATIVE (NEGATIVE); KETONES,URINE NEGATIVE (NEGATIVE); LEUKOCYTE ESTERASE,URINE LARGE (NEGATIVE); NITRITE,URINE POSITIVE (NEGATIVE); PROTEIN,URINE 30 mg/dL (NEGATIVE); URINE SPECIFIC GRAVITY 1.008; UROBILINOGEN,URINE NEGATIVE mg/dL (<2.0)
--- NOTE | 2016-11-10 15:24 | RADIOLOGY REPORT (SQ) ---
EXAM DESCRIPTION: CT HEAD WITHOUT COMPLETED DATE/TIME: 11/10/2016 3:14 pm REASON FOR STUDY: Fall with facial bruises; altered mental status COMPARISON: 11/05/2016. TECHNIQUE: Axial images acquired through the brain without intravenous contrast. Images reviewed wi th bone, brain and subdural windows. Images stored on PACS. All CT scanners at this facility use dose modulation, iterative reconstruction, and/or weight based d osing when appropriate to reduce radiation dose to as low as reasonably achievable (ALARA). [facility]: Dose Right [facility]: CareDose [facility]: Dose Right [facility]: Teradose 4D [facility]: Smart [employer] RADIATION DOSE: Up-to-date CT equipment and radiation dose reduction techniques were employed. CTDIv ol: 61.1 mGy. DLP: 1034 mGy-cm. mGy. LIMITATIONS: None. FINDINGS: VENTRICLES: Prominent. CEREBRUM: No masses. No hemorrhage. No midline shift. Areas of low density in the white matter mos t likely due to chronic micro-vascular ischemic change. No evidence for acute infarction. CEREBELLUM: No masses. No hemorrhage. No alteration of density. No evidence for acute infarction. EXTRAAXIAL SPACES: Mild age-related involutional change. No fluid collections. No masses. ORBITS AND GLOBE: No intra- or extraconal masses. Normal contour of globe without masses. CALVARIUM: No fracture. PARANASAL SINUSES: No fluid or mucosal thickening. SOFT TISSUES: Soft tissue swelling adjacent to the right orbit. OTHER: No other significant finding. IMPRESSION: MILD CHRONIC CHANGES OF ATROPHY AND MICROVASCULAR ISCHEMIA. SOFT TISSUE SWELLING ADJACE NT TO THE RIGHT ORBIT. NO ACUTE FINDINGS. TECHNICAL DOCUMENTATION: JOB ID: [id number] Quality ID # [id number]: Final reports with documentation of one or more dose reduction techniques (e.g., Au tomated exposure control, adjustment of the mA and/or kV according to patient size, use of iterative reconstruction technique) 2010 [employer].- All Rights Reserved
--- NOTE | 2016-11-10 15:41 | RADIOLOGY REPORT (SQ) ---
EXAM DESCRIPTION: CHEST PA/LAT COMPLETED DATE/TIME: 11/10/2016 3:20 pm REASON FOR STUDY: Confusion COMPARISON: 10/19/2015. EXAM PARAMETERS: NUMBER OF VIEWS: two views TECHNIQUE: Digital Frontal and Lateral radiographic views of the chest acquired. RADIATION DOSE: NA LIMITATIONS: none FINDINGS: LUNGS AND PLEURA: No opacities, masses or pneumothorax. No pleural effusion. MEDIASTINUM AND HILAR STRUCTURES: No masses or contour abnormalities. HEART AND VASCULAR STRUCTURES: Heart normal size. No evidence for failure. BONES: No acute findings. Chronic changes in the spine and shoulders. HARDWARE: None in the chest. OTHER: No other significant finding. IMPRESSION: STABLE CHRONIC CHANGES. NO ACUTE RADIOGRAPHIC FINDING IN THE CHEST. TECHNICAL DOCUMENTATION: JOB ID: [id number] [employer]- All Rights Reserved
--- NOTE | 2016-11-10 15:56 | ER Document Report ---
ED General - General Chief Complaint: Altered Mental Status Stated Complaint: ALTERED MENTAL STATUS Time Seen by Provider: 11/10/16 13:46 Notes: Patient is a resident at [facility] who was sent here for evaluation of change in mental status. For the past week. She is supposedly taking doxycycline for a cyst of her right eyelid? or scalp? For the past 5 days. She fell 3 days ago, says she rolled out of the bed, and hit her face and she has bruising around both eyes. Patient's had some diarrhea yesterday and she has been vomiting this morning. She was transported here by EMS. They found her Accu-Chek to be 61 at the scene and she was given some oral glucose. Patient is a diabetic, but we have limited information on the patient because they sent no medical records with her. TRAVEL OUTSIDE OF THE [place] IN LAST 30 DAYS: No - Related Data Allergies/Adverse Reactions: ciprofloxacin [From Cipro] Allergy (Verified 10/31/16 18:36) Rash/Hives meperidine [Meperidine] Allergy (Verified 10/31/16 18:36) Rash/Hives methadone [Methadone] Allergy (Verified 10/31/16 18:36) Rash/Hives Penicillins Allergy (Verified 10/31/16 18:36) Anaphylaxis, Rash Sulfa (Sulfonamide Antibiotics) Allergy (Verified 10/31/16 18:36) Rash/Hives Past Medical History - Social History Smoking Status: Never Smoker Chew tobacco use (# tins/day): No Frequency of alcohol use: None Drug Abuse: None Lives with: [facility] - [facility] Family History: Reviewed & Not Pertinent Patient has suicidal ideation: No Patient has homicidal ideation: No - Past Medical History Cardiac Medical History: Reports: Hx Hypercholesterolemia, Hx Hypertension - 6 years- takes meds Pulmonary Medical History: Reports: Hx Sleep Apnea - uses CPAP Neurological Medical History: Reports: Hx Migraine Endocrine Medical History: Reports: Hx Diabetes Mellitus Type 2 Renal/ Medical History: Reports: Hx Kidney Stones Malignancy Medical History: GI Medical History: Reports: Hx Gastroesophageal Reflux Disease - takes meds, Hx Hiatal Hernia Musculoskeltal Medical History: Reports Hx Arthritis Psychiatric Medical History: Reports: Hx Depression Traumatic Medical History: Reports: Hx Fractures - closed, displaced fracture at right patella Infectious Medical History: Past Surgical History: Reports: Hx Section, Hx Cholecystectomy, Hx Orthopedic Surgery - bilat knee replacement, Hx Tubal Ligation - Immunizations Immunizations up to date: Yes Hx Diphtheria, Pertussis, Tetanus Vaccination: Yes Hx Pneumococcal Vaccination: 07/07/15 Review of Systems - Review of Systems Notes: Patient is unable to provide reliable answers to questions about her health. She does know that she is in the hospital at [place], but could not remember the city. She knows it is warm outside and not cold. -: Yes ROS unobtainable due to patient's medical condition Physical Exam - Vital signs Vitals: Temp BP 98.2 F 119/71 11/10/16 13:47 11/10/16 13:47 Interpretation: Normal - Notes Notes: PHYSICAL EXAMINATION: GENERAL: Well-appearing, in no acute distress. Patient has superficial bruises with some soft tissue swelling across both eyes, on the right more so than the left. HEAD: Atraumatic, normocephalic. Patient's scalp, close to the right forehead, has a bruise and scrape. EYES: Pupils equal round and reactive to light, extraocular movements intact. Superficial bruising of both eyelids, right more so than left. A small cut is noted of the lateral aspect of the right upper lid. ENT: oropharynx clear without exudates. Mouth is somewhat dry. NECK: Normal range of motion, supple. LUNGS: Breath sounds clear and equal bilaterally. HEART: Regular rate and rhythm without murmurs. ABDOMEN: Soft, nontender. No guarding or rebound. BACK: No tenderness throughout entire back. EXTREMITIES: Normal range of motion without pain. NEUROLOGICAL: Normal speech, and seems to be somewhat oriented, certainly to place. Answer some questions correctly. Says she is nauseated. Gait not tested. Moves all 4 extremities. PSYCH: Normal mood, normal affect. SKIN: Warm, dry, no rashes. Course - Re-evaluation Re-evalutation: 11/10/16 17:58 Spoke with the hospitalist who will be admitting the patient for treatment of her UTI and persistent vomiting. - Vital Signs Vital signs: Temp Pulse Resp BP Pulse Ox 98.2 F 18 99/52 L 97 11/10/16 13:47 11/10/16 17:01 11/10/16 17:01 11/10/16 17:01 - Laboratory Result Diagrams: 11/10/16 14:00 11/10/16 14:00 Laboratory results interpreted by me: 11/10/16 11/10/16 11/10/16 14:00 14:00 14:30 Hgb 10.5 L Hct 32.6 L RDW 16.2 H Plt Count 856 H Sodium 135.8 L Carbon Dioxide 21 L BUN 34 H Creatinine 1.43 H Est GFR ( Amer) 45 L Est GFR (Non-Af Amer) 37 L Glucose 57 L Direct Bilirubin 0.5 H Albumin 3.3 L Urine Protein 30 H Urine Blood SMALL H Urine Nitrite POSITIVE H Ur Leukocyte Esterase LARGE H Discharge - Discharge Clinical Impression: Dehydration Urinary tract infection Qualifiers: Urinary tract infection type: site unspecified Hematuria presence: without hematuria Qualified Code(s): N39.0 - Urinary tract infection, site not specified Vomiting Qualifiers: Vomiting type: unspecified Vomiting Intractability: unspecified Nausea presence : with nausea Qualified Code(s): R11.2 - Nausea with vomiting, unspecified Condition: Stable Disposition: ADMITTED INPATIENT Admitting Provider: Hospitalist Unit Admitted: Medical Floor
[2016-11-10] MEDS ORDERED: CEFTRIAXONE 1 GM/D5W RTU 50 ML IV ONE (16:38)
[2016-11-10] MEDS ORDERED: ONDANSETRON 4 MG TAB.RAPDIS PO PRN (17:46)
[2016-11-10] MEDS ORDERED: IPRATROPIUM/ALBUTEROL 0.5-2.5 MG/3 ML AMPUL NEB PRN (17:46)
[2016-11-10] MEDS ORDERED: OXYCODONE HCL IR 5 MG TABLET PO PRN (17:53)
[2016-11-10] MEDS ORDERED: DEXTROSE 50%-WATER 25 GM/50 ML DISP.SYRIN IV PRN (17:54)
[2016-11-10] MEDS ORDERED: GLUCAGON,HUMAN RECOMB 1 MG INJ IM PRN (17:54)
[2016-11-10] MEDS ORDERED: DEXTROSE 40% GEL 15 GM TUBE PO PRN ×2 (17:54)
--- NOTE | 2016-11-10 18:37 | PDOC H&P ---
History of Present Illness Patient complains of: Nausea and vomiting. History of Present Illness: FANTASMA WALDEN is a 66 year old female but at the [facility] who presents with nausea vomiting and a urinary tract infection. Patient reports over the last 2- 3 days she has had worsening nausea and some dysuria. She denies any fevers or chills or hematuria. She denies any abdominal pain. The patient is she also has a hematoma around the allergic to multiple antibiotics. Right periorbital area from a fall several days ago. She denies having any loss of consciousness associated with this and denies any loss of vision or double vision. Past Medical History Cardiac Medical History: Reports: Hyperlipidema, Hypertension - 6 years- takes meds Denies: Atrial Fibrillation, Congestive Heart Failure, Coronary Artery Disease, Myocardial Infarction, Peripheral Vascular Disease, Pulmonary Embolism , Heart Murmur Pulmonary Medical History: Reports: Sleep Apnea - uses CPAP Denies: Asthma, Bronchitis, Chronic Obstructive Pulmonary Disease (COPD), Pneumonia, Respiratory Failure, Tuberculosis Neurological Medical History: Reports: Migraine Denies: Seizures Endocrine Medical History: Reports: Diabetes Mellitus Type 2 Denies: Hyperthyroidism, Hypothyroidism Renal/ Medical History: Denies: End Stage Renal Disease Malignancy Medical History: Denies: Lung Cancer GI Medical History: Reports: Gastroesophageal Reflux Disease - takes meds, Hiatal Hernia Denies: Crohn's Disease Musculoskeltal Medical History: Reports: Arthritis Denies: Fibromyalgia Skin Medical History: Reports: None Psychiatric Medical History: Reports: Depression Denies: Bipolar Disorder, Post Traumatic Stress Disorder Traumatic Medical History: Reports: None Hematology: Infectious Medical History: Reports: None Past Surgical History Past Surgical History: Reports: Section, Cholecystectomy, Orthopedic Surgery - bilat knee replacement, Tubal Ligation Denies: Amputation, Appendectomy, Colostomy, Coronary Artery Bypass Graft, Gastric Bypass Surgery, Herniorrhaphy, Hysterectomy, Mastectomy, Pacemaker, Tonsillectomy Social History Information Source: Patient Lives with: Shelter - [facility] Smoking Status: Never Smoker Frequency of Alcohol Use: None Hx Recreational Drug Use: No Drugs: None Hx Prescription Drug Abuse: No - Advance Directive Resuscitation Status: Full Code Family History Family History: Mother at age 90 with cancer. Father at age 60 from suicide. Parental Family History Reviewed: Yes Children Family History Reviewed: No Sibling(s) Family History Reviewed.: No Medication/Allergy Home Medications: Alprazolam [Xanax 0.5 mg Tablet] 0.5 mg PO BID 07/20/15 Atorvastatin Calcium [Lipitor] 20 mg PO QHS 07/20/15 Bupropion HCl [Zyban] 150 mg PO QAM 07/20/15 Butenafine HCl [Lotrimin Ultra 1% Cream] 1 applic TP BID 07/20/15 Escitalopram Oxalate 30 mg PO DAILY 07/20/15 Fluticasone Propionate [Flovent Diskus 50 mcg] 50 mcg IH QAM 07/20/15 Glipizide [Glipizide Xl] 5 mg PO QAM 07/20/15 Insulin Detemir [Levemir Insulin 100 units/mL] 15 unit SUBCUT BID 07/20/15 Lisinopril [Zestril] 10 mg PO QAM 07/20/15 Loratadine [Claritin] 10 mg PO QAM 07/20/15 Metformin HCl [Glucophage] 1,000 mg PO BID 07/20/15 Ondansetron HCl [Zofran 4 mg Tablet] 1 tab PO Q6HP PRN 07/20/15 Topiramate 50 mg PO BID 07/20/15 Trazodone HCl [Desyrel 50 mg Tablet] 50 mg PO QHS 07/20/15 Acetaminophen [Pain & Fever] 500 mg PO Q4 PRN 12/05/15 Calcium Carbonate/Mag Carb [Mylanta Tablet] 30 mg PO Q6 MDD 4 12/05/15 Diphenoxylate HCl/Atrop Sulf [Lomotil 2.5 mg Tablet] 2 tab PO ASDIR PRN Esomeprazole Magnesium [Nexium] 40 mg PO QAM 12/05/15 Fluticasone Propionate [Flonase Nasal [employer] 50 Mcg/[employer] 16 gm] 1 spray NASL QAM 12/05/15 Furosemide [Lasix 20 mg Tablet] 20 mg PO QAM 12/05/15 Insulin Lispro [Humalog] 0 unit SQ .SLD SCALE 12/05/15 Magnesium Hydroxide [Milk of Magnesia 30 ml Udcup] 30 ml PO QHS PRN 12/05/15 Nitrofurantoin Monohyd/M-Cryst [Macrobid 100 mg Capsule] 100 mg PO QAM 12/05/15 Oxybutynin Chloride [Ditropan Xl] 10 mg PO QAM 12/05/15 Polyvinyl Alcohol [Liquid Tears] 2 drop OP QAM 12/05/15 Oxycodone HCl [Oxy-Ir 5 mg Tablet] 5 mg PO Q6HP PRN #0 tablet 12/28/15 Pnv W-O Ca No5/Fe Fumarate/FA [-U Multiple Vitamin Capsule] 1 cap PO DAILY #0 capsule 12/28/15 Clindamycin HCl 300 mg PO Q6H #28 capsule 10/31/16 Allergies/Adverse Reactions: ciprofloxacin [From Cipro] Allergy (Verified 10/31/16 18:36) Rash/Hives meperidine [Meperidine] Allergy (Verified 10/31/16 18:36) Rash/Hives methadone [Methadone] Allergy (Verified 10/31/16 18:36) Rash/Hives Penicillins Allergy (Verified 10/31/16 18:36) Anaphylaxis, Rash Sulfa (Sulfonamide Antibiotics) Allergy (Verified 10/31/16 18:36) Rash/Hives Review of Systems Constitutional: ABSENT: chills, fever(s), headache(s), weight gain, weight loss Eyes: ABSENT: visual disturbances Ears: ABSENT: hearing changes Cardiovascular: ABSENT: chest pain, dyspnea on exertion, edema, orthropnea, palpitations Respiratory: ABSENT: cough, hemoptysis Gastrointestinal: ABSENT: abdominal pain, constipation, diarrhea, hematemesis, hematochezia, nausea, vomiting Genitourinary: PRESENT: as per HPI, dysuria. ABSENT: hematuria Musculoskeletal: ABSENT: joint swelling Integumentary: ABSENT: rash, wounds Neurological: ABSENT: abnormal gait, abnormal speech, confusion, dizziness, focal weakness, syncope Psychiatric: ABSENT: anxiety, depression Endocrine: ABSENT: cold intolerance, heat intolerance, polydipsia, polyuria Hematologic/Lymphatic: ABSENT: easy bleeding, easy bruising Physical Exam Vital Signs: Temp Pulse Resp BP Pulse Ox 98.2 F 18 99/52 L 97 11/10/16 13:47 11/10/16 17:01 11/10/16 17:01 11/10/16 17:01 Intake & Output 11/09/16 11/10/16 11/11/16 06:59 06:59 06:59 Weight 80 kg General appearance: PRESENT: no acute distress, well-developed, well-nourished Head exam: PRESENT: other - Periorbital hematoma, appears to be several days old Eye exam: PRESENT: conjunctiva pink, periorbital swelling - Right sided. ABSENT : scleral icterus Ear exam: PRESENT: normal external ear exam Mouth exam: PRESENT: moist, tongue midline Neck exam: ABSENT: carotid bruit, JVD, lymphadenopathy, thyromegaly Respiratory exam: PRESENT: clear to auscultation douglas. ABSENT: rales, rhonchi, wheezes Cardiovascular exam: PRESENT: RRR. ABSENT: diastolic murmur, rubs, systolic murmur Pulses: PRESENT: normal dorsalis pedis pul GI/Abdominal exam: PRESENT: normal bowel sounds, soft. ABSENT: distended, guarding, mass, organolmegaly, rebound, tenderness Rectal exam: PRESENT: deferred Extremities exam: ABSENT: calf tenderness, clubbing, pedal edema Neurological exam: PRESENT: alert, awake, oriented to person, oriented to place , CN II-XII grossly intact. ABSENT: oriented to time, oriented to situation, motor sensory deficit Psychiatric exam: PRESENT: appropriate affect Skin exam: PRESENT: dry, intact, warm. ABSENT: cyanosis, rash Results Laboratory Results: 11/10/16 14:00 11/10/16 14:00 11/10/16 11/10/16 11/10/16 14:00 14:00 14:30 WBC 10.5 RBC 3.81 Hgb 10.5 L Hct 32.6 L MCV 86 MCH 27.6 MCHC 32.3 RDW 16.2 H Plt Count 856 H Seg Neutrophils % 76.8 Lymphocytes % 14.9 Monocytes % 7.0 Eosinophils % 0.5 Basophils % 0.8 Absolute Neutrophils 8.1 Absolute Lymphocytes 1.6 Absolute Monocytes 0.7 Absolute Eosinophils 0.1 Absolute Basophils 0.1 Sodium 135.8 L Potassium 4.5 Chloride 103 Carbon Dioxide 21 L Anion Gap 12 BUN 34 H Creatinine 1.43 H Est GFR ( Amer) 45 L Est GFR (Non-Af Amer) 37 L Glucose 57 L Calcium 8.8 Total Bilirubin 0.5 AST 23 ALT 18 Alkaline Phosphatase 97 Total Protein 7.3 Albumin 3.3 L Lipase 23.1 Urine Color YELLOW Urine Appearance TURBID Urine pH 6.0 Ur Specific [place] 1.008 Urine Protein 30 H Urine Glucose (UA) NEGATIVE Urine Ketones NEGATIVE Urine Blood SMALL H Urine Nitrite POSITIVE H Ur Leukocyte Esterase LARGE H Urine WBC (Auto) >182 Urine RBC (Auto) 6 Impressions: Chest X-Ray 11/10/16 14:08 IMPRESSION: STABLE CHRONIC CHANGES. NO ACUTE RADIOGRAPHIC FINDING IN THE CHEST. Head CT 11/10/16 14:11 IMPRESSION: MILD CHRONIC CHANGES OF ATROPHY AND MICROVASCULAR ISCHEMIA. SOFT TISSUE SWELLING ADJACENT TO THE RIGHT ORBIT. NO ACUTE FINDINGS. Assessment & Plan - Diagnosis (1) Dehydration Is this a current diagnosis for this admission?: YesPlan: Patient has had nausea and vomiting from the urinary tract infection. We will give IV fluids overnight. (2) UTI (urinary tract infection) Qualifiers: Urinary tract infection type: site unspecified Hematuria presence: without hematuria Qualified Code(s): N39.0 - Urinary tract infection, site not specified; R31.9 - Hematuria, unspecified Is this a current diagnosis for this admission?: YesPlan: Multiple drug allergies. She does have anaphylaxis to penicillin and because of that we will avoid cephalosporins. Will give the patient clindamycin and check blood and urine cultures. (3) Hypertension Is this a current diagnosis for this admission?: YesPlan: Continue with lisinopril. (4) Obstructive sleep apnea on CPAP Is this a current diagnosis for this admission?: Yes (5) Hyperlipidemia Is this a current diagnosis for this admission?: YesPlan: The patient has been on Lipitor. (6) Gastroesophageal reflux disease Is this a current diagnosis for this admission?: Yes (7) Type 2 diabetes mellitus Qualifiers: Diabetes mellitus complication status: without complication Is this a current diagnosis for this admission?: YesPlan: Patient has been taking glipizide and Levemir. Will hold oral agents and cover with sliding scale insulin while hospitalized. - Time Time Spent: 50 to 70 Minutes - Inpatient Certification Medical Necessity: Need For IV Fluids, Need for IV Antibiotics - Plan Summary Plan Summary: Given the patient's nausea and vomiting and decreased p.o. intake, I anticipate this will require greater than 2 midnight hospital stay and we will make her a regular admission.
[2016-11-10] MEDS: INSULIN DETEMIR 100 UNIT/ML 3 ML PEN SUBCUT SCH (22:50)
[2016-11-10] MEDS: ALPRAZOLAM 0.5 MG TABLET PO SCH (22:50)
[2016-11-10] MEDS: CLINDAMYCIN 600 MG/D5W RTU 600 MG/50 ML RTUPB IV SCH (23:06)
[2016-11-10] MEDS: FAMOTIDINE 20 MG TABLET PO SCH (23:06)
[2016-11-10] MEDS: NORMAL SALINE 1000 ML 1,000 ML IV PRN (23:07)
[2016-11-10] MEDS: ONDANSETRON HCL INJ/PF 4 MG/2 ML SDV IV PRN (23:07)
[2016-11-11] MEDS: NORMAL SALINE 1000 ML 1,000 ML IV PRN ×2 (05:10→16:56)
[2016-11-11] MEDS: CLINDAMYCIN 600 MG/D5W RTU 600 MG/50 ML RTUPB IV SCH ×3 (05:10→22:05)
[2016-11-11 05:12] LABS: ABSOLUTE LYMPHOCYTES (AUTO) 1.1 10^3/uL (0.5-4.7); ABSOLUTE NEUT (AUTO) 12.6 10^3/uL (1.7-8.2); BASOPHILS % (AUTO) 0.3 % (0-2); EOSINOPHILS % (AUTO) 0.1 % (0-6); HEMATOCRIT 28.2 % (36.0-47.0); HEMOGLOBIN 9.2 g/dL (12.0-15.5); HGB HCT DIFFERENCE -0.6; LYMPHOCYTES % (AUTO) 7.3 % (13-45); MEAN CORPUSCULAR HEMOGLOBIN 28.1 pg (27.0-33.4); MEAN CORPUSCULAR HGB CONC 32.5 g/dL (32.0-36.0); MEAN CORPUSCULAR VOLUME 86 fl (80-97); MONOCYTES % (AUTO) 6.6 % (3-13); RED BLOOD COUNT 3.27 10^6/uL (3.72-5.28); RED CELL DISTRIBUTION WIDTH 16.2 % (11.5-14.0); SEGMENTED NEUTROPHILS % (AUTO) 85.7 % (42-78); WHITE BLOOD COUNT 14.7 10^3/uL (4.0-10.5)
[2016-11-11] MEDS: ONDANSETRON HCL INJ/PF 4 MG/2 ML SDV IV PRN ×4 (05:25→22:07)
[2016-11-11 05:40] LABS: ANION GAP 13 (5-19); BLOOD UREA NITROGEN 23 mg/dL (7-20); CARBON DIOXIDE 16 mmol/L (22-30); CHLORIDE 110 mmol/L (98-107); GLUCOSE 235 mg/dL (75-110); POTASSIUM 4.5 mmol/L (3.6-5.0)
[2016-11-11] MEDS ORDERED: OXYCODONE HCL IR 5 MG TABLET PO PRN (07:21)
[2016-11-11] MEDS ORDERED: ONDANSETRON HCL INJ/PF 4 MG/2 ML SDV IV PRN (07:22)
[2016-11-11] MEDS ORDERED: ONDANSETRON 4 MG TAB.RAPDIS PO PRN (07:22)
[2016-11-11] MEDS ORDERED: NORMAL SALINE 1000 ML 1,000 ML IV ONE (08:09)
[2016-11-11] MEDS ORDERED: GENTAMICIN SULFATE 0 MG in DEXTROSE 5%-WATER 100 ML IV NR (08:15)
[2016-11-11] MEDS: ENOXAPARIN SODIUM INJ 40 MG/0.4 ML DISP.SYRIN SUBCUT SCH (09:28)
[2016-11-11] MEDS: INSULIN DETEMIR 100 UNIT/ML 3 ML PEN SUBCUT SCH ×2 (09:28→17:04)
[2016-11-11] MEDS: ALPRAZOLAM 0.5 MG TABLET PO SCH ×2 (09:29→17:04)
[2016-11-11] MEDS: FAMOTIDINE 20 MG TABLET PO SCH ×2 (09:29→23:23)
--- NOTE | 2016-11-11 10:34 | PDOC PROGRESS REPORT ---
Subjective Progress Note for:: 11/11/16 Subjective:: Complains of nausea and vomiting. Physical Exam Vital Signs: Temp Pulse Resp BP Pulse Ox 98.7 F 94 16 139/64 H 96 11/11/16 07:24 11/11/16 08:41 11/11/16 08:41 11/11/16 07:24 11/11/16 08:41 Intake & Output 11/10/16 11/11/16 11/12/16 06:59 06:59 06:59 Intake Total 1775 Output Total 2800 Balance -1025 Weight 71.7 kg General appearance: PRESENT: no acute distress Eye exam: PRESENT: conjunctiva pink. ABSENT: scleral icterus Mouth exam: PRESENT: moist, tongue midline Neck exam: ABSENT: JVD Respiratory exam: PRESENT: clear to auscultation douglas. ABSENT: rales, rhonchi, wheezes Cardiovascular exam: PRESENT: RRR. ABSENT: diastolic murmur, rubs, systolic murmur GI/Abdominal exam: PRESENT: normal bowel sounds, soft, tenderness - Epigastric tenderness.. ABSENT: distended, guarding, mass, organolmegaly, rebound Extremities exam: ABSENT: calf tenderness, clubbing, pedal edema Neurological exam: PRESENT: alert, awake, oriented to person, oriented to place , oriented to situation. ABSENT: oriented to time Psychiatric exam: PRESENT: appropriate affect Skin exam: PRESENT: dry, intact, warm, other - Hematoma in the right periorbital area. ABSENT: cyanosis, rash Results Laboratory Results: 11/11/16 04:30 11/11/16 04:30 11/11/16 11/11/16 04:30 04:30 WBC 14.7 H RBC 3.27 L Hgb 9.2 L Hct 28.2 L MCV 86 MCH 28.1 MCHC 32.5 RDW 16.2 H Plt Count 722 H Seg Neutrophils % 85.7 H Lymphocytes % 7.3 L Monocytes % 6.6 Eosinophils % 0.1 Basophils % 0.3 Absolute Neutrophils 12.6 H Absolute Lymphocytes 1.1 Absolute Monocytes 1.0 Absolute Eosinophils 0.0 Absolute Basophils 0.0 Sodium 139.0 Potassium 4.5 Chloride 110 H Carbon Dioxide 16 L Anion Gap 13 BUN 23 H Creatinine 1.00 Est GFR ( Amer) > 60 Est GFR (Non-Af Amer) 56 L Glucose 235 H Calcium 8.0 L Impressions: Chest X-Ray 11/10/16 14:08 IMPRESSION: STABLE CHRONIC CHANGES. NO ACUTE RADIOGRAPHIC FINDING IN THE CHEST. Head CT 11/10/16 14:11 IMPRESSION: MILD CHRONIC CHANGES OF ATROPHY AND MICROVASCULAR ISCHEMIA. SOFT TISSUE SWELLING ADJACENT TO THE RIGHT ORBIT. NO ACUTE FINDINGS. Assessment & Plan - Diagnosis (1) Dehydration Is this a current diagnosis for this admission?: YesPlan: Patient has had nausea and vomiting from the urinary tract infection. We will give IV fluids and a bolus as her bicarbonate has dropped down to 16 and appears to need more fluids. (2) UTI (urinary tract infection) Qualifiers: Urinary tract infection type: site unspecified Hematuria presence: without hematuria Qualified Code(s): N39.0 - Urinary tract infection, site not specified; R31.9 - Hematuria, unspecified Is this a current diagnosis for this admission?: YesPlan: Multiple drug allergies. She does have anaphylaxis to penicillin and because of that we will avoid cephalosporins. Started on clindamycin yesterday. There is a blood culture now growing a gram-negative angelica. Gram-negative angelica we will add on gentamicin. Will need to watch creatinine closely. (3) Hypertension Is this a current diagnosis for this admission?: YesPlan: Continue with lisinopril. (4) Obstructive sleep apnea on CPAP Is this a current diagnosis for this admission?: Yes (5) Hyperlipidemia Is this a current diagnosis for this admission?: YesPlan: The patient has been on Lipitor. (6) Gastroesophageal reflux disease Is this a current diagnosis for this admission?: Yes (7) Type 2 diabetes mellitus Qualifiers: Diabetes mellitus complication status: without complication Is this a current diagnosis for this admission?: YesPlan: Patient has been taking glipizide and Levemir. Will hold oral agents and cover with sliding scale insulin while hospitalized. (8) Acute renal failure Is this a current diagnosis for this admission?: YesPlan: Has improved with IV fluids however the bicarbonate has decreased. We will give a bolus of IV fluids today. - Time Time Spent with patient: 25-34 minutes - Inpatient Certification Medical Necessity: Need For IV Fluids, Need for IV Antibiotics
[2016-11-11] MEDS: GENTAMICIN SULFATE 100 MG in DEXTROSE 5%-WATER 100.0 ML IV SCH ×2 (11:07→23:21)
[2016-11-11] MEDS: INSULIN LISPRO 100 UNIT/ML 3 ML VIAL SUBCUT PRN (16:19)
[2016-11-12] MEDS: NORMAL SALINE 1000 ML 1,000 ML IV PRN (02:10)
[2016-11-12] MEDS: CLINDAMYCIN 600 MG/D5W RTU 600 MG/50 ML RTUPB IV SCH (05:12)
[2016-11-12 05:20] LABS: ABSOLUTE LYMPHOCYTES (AUTO) 1.3 10^3/uL (0.5-4.7); ABSOLUTE MONOCYTES (AUTO) 0.5 10^3/uL (0.1-1.4); ABSOLUTE NEUT (AUTO) 7.9 10^3/uL (1.7-8.2); BASOPHILS % (AUTO) 0.5 % (0-2); EOSINOPHILS % (AUTO) 0.1 % (0-6); HEMATOCRIT 27.3 % (36.0-47.0); HEMOGLOBIN 8.9 g/dL (12.0-15.5); HGB HCT DIFFERENCE -0.6; LYMPHOCYTES % (AUTO) 13.5 % (13-45); MEAN CORPUSCULAR HEMOGLOBIN 27.7 pg (27.0-33.4); MEAN CORPUSCULAR HGB CONC 32.4 g/dL (32.0-36.0); MEAN CORPUSCULAR VOLUME 85 fl (80-97); RED CELL DISTRIBUTION WIDTH 16.1 % (11.5-14.0); SEGMENTED NEUTROPHILS % (AUTO) 80.9 % (42-78); WHITE BLOOD COUNT 9.7 10^3/uL (4.0-10.5)
[2016-11-12 05:32] LABS: ANION GAP 7 (5-19); BLOOD UREA NITROGEN 14 mg/dL (7-20); CALCIUM 7.2 mg/dL (8.4-10.2); CARBON DIOXIDE 20 mmol/L (22-30); CHLORIDE 111 mmol/L (98-107); CREATININE RESULT 0.78 mg/dL (0.52-1.25); POTASSIUM 3.2 mmol/L (3.6-5.0); SODIUM 138.3 mmol/L (137-145)
[2016-11-12 05:48] LABS: GLUCOSE 36 mg/dL (75-110)
[2016-11-12] MEDS: DEXTROSE 50%-WATER 25 GM/50 ML DISP.SYRIN IV PRN ×2 (06:36→20:14)
--- NOTE | 2016-11-12 08:47 | PDOC PROGRESS REPORT ---
Subjective Progress Note for:: 11/12/16 Subjective:: Patient reports that she is better. She is generally weak. Patient remembers what happened. Patient stated she fell and slipped over the bed but did not really lose any consciousness. Denies any chills or fever at this time. Constipation on and off. Rash on the skin and on the face. Physical Exam Vital Signs: Temp Pulse Resp BP Pulse Ox 98.7 F 87 18 131/71 H 97 11/12/16 08:00 11/12/16 08:20 11/12/16 08:20 11/12/16 08:00 11/12/16 08:20 Intake & Output 11/11/16 11/12/16 11/13/16 06:59 06:59 06:59 Intake Total 1775 4860 Output Total 2800 2490 Balance -1025 2370 Weight 71.7 kg 72.3 kg General appearance: PRESENT: no acute distress, cooperative Head exam: PRESENT: normocephalic, other - Periorbital edema and bruise mild right side. Eye exam: PRESENT: EOMI Mouth exam: PRESENT: moist, neck supple Neck exam: ABSENT: JVD Respiratory exam: PRESENT: clear to auscultation douglas Cardiovascular exam: PRESENT: RRR. ABSENT: gallop GI/Abdominal exam: PRESENT: hypoactive bowel sounds, soft. ABSENT: rebound, tenderness Extremities exam: PRESENT: other - Trace pretibial edema Neurological exam: PRESENT: alert, awake, oriented to situation Psychiatric exam: ABSENT: agitated Focused psych exam: ABSENT: restlessness Skin exam: PRESENT: dry, warm. ABSENT: cyanosis Results Laboratory Results: 11/12/16 05:00 11/12/16 05:00 11/12/16 11/12/16 05:00 05:00 WBC 9.7 RBC 3.20 L Hgb 8.9 L Hct 27.3 L MCV 85 MCH 27.7 MCHC 32.4 RDW 16.1 H Plt Count 669 H Seg Neutrophils % 80.9 H Lymphocytes % 13.5 Monocytes % 5.0 Eosinophils % 0.1 Basophils % 0.5 Absolute Neutrophils 7.9 Absolute Lymphocytes 1.3 Absolute Monocytes 0.5 Absolute Eosinophils 0.0 Absolute Basophils 0.0 Sodium 138.3 Potassium 3.2 L Chloride 111 H Carbon Dioxide 20 L Anion Gap 7 BUN 14 Creatinine 0.78 Est GFR ( Amer) > 60 Est GFR (Non-Af Amer) > 60 Glucose 36 L* Calcium 7.2 L 11/11/16 02:42 Nasophary (Mrsa Only) MRSA Surveillance Culture - Final NO MRSA RECOVERED Impressions: Chest X-Ray 11/10/16 14:08 IMPRESSION: STABLE CHRONIC CHANGES. NO ACUTE RADIOGRAPHIC FINDING IN THE CHEST. Head CT 11/10/16 14:11 IMPRESSION: MILD CHRONIC CHANGES OF ATROPHY AND MICROVASCULAR ISCHEMIA. SOFT TISSUE SWELLING ADJACENT TO THE RIGHT ORBIT. NO ACUTE FINDINGS. Assessment & Plan - Diagnosis (1) Altered mental status, unspecified Qualifiers: Altered mental status type: unspecified Qualified Code(s): R41.82 - Altered mental status, unspecified Is this a current diagnosis for this admission?: Yes (2) Dehydration Is this a current diagnosis for this admission?: Yes (3) UTI (urinary tract infection) Qualifiers: Urinary tract infection type: site unspecified Hematuria presence: without hematuria Qualified Code(s): N39.0 - Urinary tract infection, site not specified; R31.9 - Hematuria, unspecified Is this a current diagnosis for this admission?: Yes (4) E coli bacteremia Is this a current diagnosis for this admission?: Yes (5) Anemia of chronic disease Is this a current diagnosis for this admission?: Yes (6) Gastroesophageal reflux disease Qualifiers: Esophagitis presence: without esophagitis Qualified Code(s): K21.9 - Gastro-esophageal reflux disease without esophagitis Is this a current diagnosis for this admission?: Yes (7) Hyperlipidemia Qualifiers: Hyperlipidemia type: unspecified Qualified Code(s): E78.5 - Hyperlipidemia, unspecified Is this a current diagnosis for this admission?: Yes (8) Hypertension Qualifiers: Hypertension type: essential hypertension Qualified Code(s): I10 - Essential (primary) hypertension Is this a current diagnosis for this admission?: Yes (9) Obstructive sleep apnea on CPAP Is this a current diagnosis for this admission?: Yes - Time Time Spent with patient: 25-34 minutes - Plan Summary Plan Summary: Begin physical therapy. Decrease intravenous fluids. We will change antibiotic to Invanz. We will continue to monitor. Start MiraLAX and bacitracin. Replace electrolytes and recheck level in the morning.
[2016-11-12] MEDS ORDERED: NORMAL SALINE 1000 ML 1,000 ML IV PRN (08:48)
[2016-11-12] MEDS ORDERED: ERTAPENEM SODIUM INJ 1 GM VIAL IV SCH (10:00)
[2016-11-12] MEDS: POTASSI CL 20 MEQ/50 ML RIDER 50 ML IV SCH ×3 (10:05→18:02)
[2016-11-12] MEDS: FAMOTIDINE 20 MG TABLET PO SCH ×2 (10:05→21:46)
[2016-11-12] MEDS: ALPRAZOLAM 0.5 MG TABLET PO SCH ×2 (10:05→18:04)
[2016-11-12] MEDS: BACITRACIN ZINC OINTMENT 15 GM TP SCH ×2 (10:20→18:04)
[2016-11-12] MEDS: ENOXAPARIN SODIUM INJ 40 MG/0.4 ML DISP.SYRIN SUBCUT SCH (10:38)
[2016-11-12] MEDS: POLYETHYLENE GLYCOL 3350 POWDER 17 GM/1 PACKET PO SCH (10:38)
[2016-11-12] MEDS: INSULIN DETEMIR 100 UNIT/ML 3 ML PEN SUBCUT SCH ×2 (11:30→17:38)
[2016-11-12] MEDS: ONDANSETRON HCL INJ/PF 4 MG/2 ML SDV IV PRN ×2 (13:05→18:12)
[2016-11-12] MEDS ORDERED: OXYCODONE-ACETAMINOPHEN 5-325 MG TABLET PO PRN (15:09)
[2016-11-12] MEDS: ERTAPENEM SODIUM 1 GM in NORMAL SALINE 50 ML IV SCH (15:30)
[2016-11-12] MEDS: GENTAMICIN SULFATE 100 MG in DEXTROSE 5%-WATER 100.0 ML IV SCH (16:08)
[2016-11-12 18:33] LABS: GENTAMICIN-PEAK 6.2 ug/mL (5.0-10.0)
[2016-11-13] MEDS: GENTAMICIN SULFATE 100 MG in DEXTROSE 5%-WATER 100.0 ML IV SCH (00:13)
[2016-11-13 07:03] LABS: ANION GAP 8 (5-19); BLOOD UREA NITROGEN 6 mg/dL (7-20); CALCIUM 7.5 mg/dL (8.4-10.2); CARBON DIOXIDE 19 mmol/L (22-30); CHLORIDE 112 mmol/L (98-107); CREATININE RESULT 0.72 mg/dL (0.52-1.25); GLUCOSE 71 mg/dL (75-110); SODIUM 139.2 mmol/L (137-145)
--- NOTE | 2016-11-13 09:44 | PDOC PROGRESS REPORT ---
Subjective Progress Note for:: 11/13/16 Subjective:: Patient continues to improve but now having some diarrhea. No reported agitation and increasing confusion. No reported nausea or vomiting or temperature spikes. No shortness of breath reported as well. Appetite remains poor. Physical Exam Vital Signs: Temp Pulse Resp BP Pulse Ox 98 F 89 16 117/62 98 11/13/16 08:00 11/13/16 08:00 11/13/16 08:00 11/13/16 08:00 11/12/16 23:41 Intake & Output 11/12/16 11/13/16 11/14/16 06:59 06:59 06:59 Intake Total 4860 2334 Output Total 2490 1775 Balance 2370 559 Weight 72.3 kg 71.2 kg General appearance: PRESENT: no acute distress, cooperative Head exam: PRESENT: normocephalic Eye exam: PRESENT: EOMI Mouth exam: PRESENT: moist, neck supple Neck exam: ABSENT: JVD Respiratory exam: PRESENT: clear to auscultation douglas. ABSENT: rhonchi, wheezes Cardiovascular exam: PRESENT: RRR. ABSENT: gallop GI/Abdominal exam: PRESENT: normal bowel sounds, soft. ABSENT: distended Extremities exam: PRESENT: other - Trace pretibial edema Neurological exam: PRESENT: alert, awake, oriented to situation Skin exam: PRESENT: dry, warm, other - Facial ecchymosis stable. ABSENT: cyanosis Results Laboratory Results: 11/12/16 05:00 11/13/16 06:15 11/13/16 06:15 Sodium 139.2 Potassium 4.0 Chloride 112 H Carbon Dioxide 19 L Anion Gap 8 BUN 6 L Creatinine 0.72 Est GFR ( Amer) > 60 Est GFR (Non-Af Amer) > 60 Glucose 71 L Calcium 7.5 L 11/10/16 22:30 Catheterized Urine Urine Culture - Final Klebsiella Pneumoniae 11/11/16 02:42 Nasophary ([facility]a Only) MRSA Surveillance Culture - Final NO MRSA RECOVERED Impressions: Chest X-Ray 11/10/16 14:08 IMPRESSION: STABLE CHRONIC CHANGES. NO ACUTE RADIOGRAPHIC FINDING IN THE CHEST. Head CT 11/10/16 14:11 IMPRESSION: MILD CHRONIC CHANGES OF ATROPHY AND MICROVASCULAR ISCHEMIA. SOFT TISSUE SWELLING ADJACENT TO THE RIGHT ORBIT. NO ACUTE FINDINGS. Assessment & Plan - Diagnosis (1) Altered mental status, unspecified Qualifiers: Altered mental status type: unspecified Qualified Code(s): R41.82 - Altered mental status, unspecified Is this a current diagnosis for this admission?: Yes (2) Dehydration Is this a current diagnosis for this admission?: Yes (3) UTI (urinary tract infection) Qualifiers: Urinary tract infection type: site unspecified Hematuria presence: without hematuria Qualified Code(s): N39.0 - Urinary tract infection, site not specified; R31.9 - Hematuria, unspecified Is this a current diagnosis for this admission?: Yes (4) E coli bacteremia Is this a current diagnosis for this admission?: Yes (5) Anemia of chronic disease Is this a current diagnosis for this admission?: Yes (6) Gastroesophageal reflux disease Qualifiers: Esophagitis presence: without esophagitis Qualified Code(s): K21.9 - Gastro-esophageal reflux disease without esophagitis Is this a current diagnosis for this admission?: Yes (7) Hyperlipidemia Qualifiers: Hyperlipidemia type: unspecified Qualified Code(s): E78.5 - Hyperlipidemia, unspecified Is this a current diagnosis for this admission?: Yes (8) Hypertension Qualifiers: Hypertension type: essential hypertension Qualified Code(s): I10 - Essential (primary) hypertension Is this a current diagnosis for this admission?: Yes (9) Obstructive sleep apnea on CPAP Is this a current diagnosis for this admission?: Yes - Time Time Spent with patient: 25-34 minutes - Plan Summary Plan Summary: We are going to continue Invanz. Discontinue gentamicin. Decrease intravenous fluid. Follow CBC in the morning. Continue supportive care.
[2016-11-13] MEDS: POLYETHYLENE GLYCOL 3350 POWDER 17 GM/1 PACKET PO SCH (10:21)
[2016-11-13] MEDS: ENOXAPARIN SODIUM INJ 40 MG/0.4 ML DISP.SYRIN SUBCUT SCH (10:21)
[2016-11-13] MEDS: BACITRACIN ZINC OINTMENT 15 GM TP SCH ×2 (10:21→17:43)
[2016-11-13] MEDS: FAMOTIDINE 20 MG TABLET PO SCH ×2 (10:21→22:19)
[2016-11-13] MEDS: ALPRAZOLAM 0.5 MG TABLET PO SCH ×2 (10:21→17:43)
[2016-11-13 11:12] LABS: GENTAMICIN-TROUGH 2.9 ug/mL (<2.0)
[2016-11-13] MEDS: METRONIDAZOLE 500 MG TABLET PO SCH ×2 (14:03→22:19)
[2016-11-13] MEDS: LACTOBACILLUS ACIDOPHILUS 250 MG TAB PO SCH ×2 (14:03→17:43)
[2016-11-13] MEDS: ERTAPENEM SODIUM 1 GM in NORMAL SALINE 50 ML IV SCH (14:04)
[2016-11-14] MEDS: METRONIDAZOLE 500 MG TABLET PO SCH ×3 (05:38→22:18)
[2016-11-14 06:11] LABS: HEMATOCRIT 25.4 % (36.0-47.0); HEMOGLOBIN 8.6 g/dL (12.0-15.5); HGB HCT DIFFERENCE 0.4; MEAN CORPUSCULAR HEMOGLOBIN 28.6 pg (27.0-33.4); MEAN CORPUSCULAR HGB CONC 33.9 g/dL (32.0-36.0); MEAN CORPUSCULAR VOLUME 84 fl (80-97); RED BLOOD COUNT 3.01 10^6/uL (3.72-5.28); RED CELL DISTRIBUTION WIDTH 16.7 % (11.5-14.0); WHITE BLOOD COUNT 5.2 10^3/uL (4.0-10.5)
[2016-11-14] MEDS: POLYETHYLENE GLYCOL 3350 POWDER 17 GM/1 PACKET PO SCH (09:17)
[2016-11-14] MEDS: ALPRAZOLAM 0.5 MG TABLET PO SCH ×2 (09:17→17:44)
[2016-11-14] MEDS: LACTOBACILLUS ACIDOPHILUS 250 MG TAB PO SCH ×2 (09:17→17:44)
[2016-11-14] MEDS: FAMOTIDINE 20 MG TABLET PO SCH ×2 (09:17→22:18)
[2016-11-14] MEDS: ENOXAPARIN SODIUM INJ 40 MG/0.4 ML DISP.SYRIN SUBCUT SCH (09:17)
[2016-11-14] MEDS: BACITRACIN ZINC OINTMENT 15 GM TP SCH ×2 (09:18→17:45)
--- NOTE | 2016-11-14 09:48 | PDOC PROGRESS REPORT ---
Subjective Progress Note for:: 11/14/16 Subjective:: Patient denies any diarrhea at this time but instead more constipation. Reported diarrhea initially were only in small amounts probably overflow diarrhea. No reported temperature spikes, nausea or vomiting, chills or fever. Patient's appetite is poor however. Patient reported dryness in the skin and generalized pruritus but no rash. Patient wants to have some bowel movement however. MiraLAX causing nausea and eventual vomiting. Physical Exam Vital Signs: Temp Pulse Resp BP Pulse Ox 99.0 F 84 18 119/53 L 95 11/13/16 23:18 11/14/16 08:42 11/14/16 08:42 11/13/16 23:18 11/14/16 08:42 Intake & Output 11/13/16 11/14/16 11/15/16 06:59 06:59 06:59 Intake Total 2334 1362 Output Total 1775 1190 Balance 559 172 Weight 71.2 kg 71.3 kg General appearance: PRESENT: no acute distress, cooperative Head exam: PRESENT: normocephalic Eye exam: PRESENT: conjunctiva pale, EOMI Mouth exam: PRESENT: moist, neck supple Neck exam: ABSENT: JVD Respiratory exam: PRESENT: clear to auscultation douglas. ABSENT: rhonchi, wheezes Cardiovascular exam: PRESENT: RRR. ABSENT: gallop GI/Abdominal exam: PRESENT: hypoactive bowel sounds, soft. ABSENT: tenderness Extremities exam: ABSENT: pedal edema Neurological exam: PRESENT: alert, awake, oriented to situation Skin exam: PRESENT: dry, warm, other - Facial ecchymosis stable. ABSENT: cyanosis Results Laboratory Results: 11/14/16 05:17 11/13/16 06:15 11/14/16 05:17 WBC 5.2 RBC 3.01 L Hgb 8.6 L Hct 25.4 L MCV 84 MCH 28.6 MCHC 33.9 RDW 16.7 H Plt Count 605 H Impressions: Chest X-Ray 11/10/16 14:08 IMPRESSION: STABLE CHRONIC CHANGES. NO ACUTE RADIOGRAPHIC FINDING IN THE CHEST. Head CT 11/10/16 14:11 IMPRESSION: MILD CHRONIC CHANGES OF ATROPHY AND MICROVASCULAR ISCHEMIA. SOFT TISSUE SWELLING ADJACENT TO THE RIGHT ORBIT. NO ACUTE FINDINGS. Assessment & Plan - Diagnosis (1) Altered mental status, unspecified Qualifiers: Altered mental status type: unspecified Qualified Code(s): R41.82 - Altered mental status, unspecified Is this a current diagnosis for this admission?: Yes (2) Dehydration Is this a current diagnosis for this admission?: Yes (3) UTI (urinary tract infection) Qualifiers: Urinary tract infection type: site unspecified Hematuria presence: without hematuria Qualified Code(s): N39.0 - Urinary tract infection, site not specified; R31.9 - Hematuria, unspecified Is this a current diagnosis for this admission?: Yes (4) E coli bacteremia Is this a current diagnosis for this admission?: Yes (5) Anemia of chronic disease Is this a current diagnosis for this admission?: Yes (6) Gastroesophageal reflux disease Qualifiers: Esophagitis presence: without esophagitis Qualified Code(s): K21.9 - Gastro-esophageal reflux disease without esophagitis Is this a current diagnosis for this admission?: Yes (7) Hyperlipidemia Qualifiers: Hyperlipidemia type: unspecified Qualified Code(s): E78.5 - Hyperlipidemia, unspecified Is this a current diagnosis for this admission?: Yes (8) Hypertension Qualifiers: Hypertension type: essential hypertension Qualified Code(s): I10 - Essential (primary) hypertension Is this a current diagnosis for this admission?: Yes (9) Obstructive sleep apnea on CPAP Is this a current diagnosis for this admission?: Yes - Time Time Spent with patient: 25-34 minutes - Plan Summary Plan Summary: We will begin Atarax, calamine lotion, and give Dulcolax suppository. Continue antibiotics. Multiple drug allergies negates transitioning to oral. We will discontinue De Oliveira catheter. Continue physical therapy. Recheck hematocrit in the morning as it trended down. This is likely dilutional from fluid hydration. Continue supportive care.
[2016-11-14] MEDS ORDERED: CALAMINE TP SCH (10:00)
[2016-11-14] MEDS ORDERED: BISACODYL 10 MG SUPP.RECT PR ONE (10:15)
[2016-11-14] MEDS ORDERED: ONDANSETRON HCL INJ/PF 4 MG/2 ML SDV IV PRN (10:16)
[2016-11-14] MEDS: ERTAPENEM SODIUM 1 GM in NORMAL SALINE 50 ML IV SCH (11:08)
[2016-11-14] MEDS: HYDROXYZINE HCL 10 MG TABLET PO SCH ×2 (15:27→22:18)
[2016-11-14] MEDS: CALAMINE/ZINC OXIDE LOTION 177 ML/BOTTLE TP SCH ×2 (15:28→17:45)
[2016-11-15 04:56] LABS: HEMATOCRIT 27.8 % (36.0-47.0); HEMOGLOBIN 9.2 g/dL (12.0-15.5); HGB HCT DIFFERENCE -0.2; MEAN CORPUSCULAR VOLUME 85 fl (80-97); RED BLOOD COUNT 3.27 10^6/uL (3.72-5.28); RED CELL DISTRIBUTION WIDTH 16.5 % (11.5-14.0)
[2016-11-15] MEDS: METRONIDAZOLE 500 MG TABLET PO SCH ×3 (06:03→22:35)
[2016-11-15] MEDS: HYDROXYZINE HCL 10 MG TABLET PO SCH ×3 (06:03→22:35)
[2016-11-15] MEDS: INSULIN LISPRO 100 UNIT/ML 3 ML VIAL SUBCUT PRN ×4 (08:35→22:50)
--- NOTE | 2016-11-15 09:00 | PDOC PROGRESS REPORT ---
Subjective Progress Note for:: 11/15/16 Subjective:: Itchiness is better. No diarrhea. Denies chills or fever. Had a good bowel movement from the laxative. Patient's appetite improved. Physical Exam Vital Signs: Temp Pulse Resp BP Pulse Ox 98.1 F 87 17 111/41 L 96 11/15/16 07:34 11/15/16 07:34 11/15/16 07:34 11/15/16 07:34 11/15/16 07:34 Intake & Output 11/14/16 11/15/16 11/16/16 06:59 06:59 06:59 Intake Total 1362 2270 Output Total 1190 Balance 172 2270 Weight 71.3 kg 72.4 kg General appearance: PRESENT: no acute distress, cooperative, obese Head exam: PRESENT: normocephalic Eye exam: PRESENT: EOMI Mouth exam: PRESENT: moist, neck supple Neck exam: ABSENT: JVD Respiratory exam: PRESENT: clear to auscultation douglas Cardiovascular exam: PRESENT: RRR. ABSENT: gallop GI/Abdominal exam: PRESENT: soft. ABSENT: distended, tenderness Extremities exam: ABSENT: pedal edema Neurological exam: PRESENT: alert, awake, oriented to situation Skin exam: PRESENT: dry, warm. ABSENT: cyanosis Results Laboratory Results: 11/15/16 04:07 11/13/16 06:15 11/15/16 04:07 WBC 5.0 RBC 3.27 L Hgb 9.2 L Hct 27.8 L MCV 85 MCH 28.0 MCHC 33.0 RDW 16.5 H Plt Count 623 H Impressions: Chest X-Ray 11/10/16 14:08 IMPRESSION: STABLE CHRONIC CHANGES. NO ACUTE RADIOGRAPHIC FINDING IN THE CHEST. Head CT 11/10/16 14:11 IMPRESSION: MILD CHRONIC CHANGES OF ATROPHY AND MICROVASCULAR ISCHEMIA. SOFT TISSUE SWELLING ADJACENT TO THE RIGHT ORBIT. NO ACUTE FINDINGS. Assessment & Plan - Diagnosis (1) Altered mental status, unspecified Qualifiers: Altered mental status type: unspecified Qualified Code(s): R41.82 - Altered mental status, unspecified Is this a current diagnosis for this admission?: Yes (2) Dehydration Is this a current diagnosis for this admission?: Yes (3) UTI (urinary tract infection) Qualifiers: Urinary tract infection type: site unspecified Hematuria presence: without hematuria Qualified Code(s): N39.0 - Urinary tract infection, site not specified; R31.9 - Hematuria, unspecified Is this a current diagnosis for this admission?: Yes (4) E coli bacteremia Is this a current diagnosis for this admission?: Yes (5) Anemia of chronic disease Is this a current diagnosis for this admission?: Yes (6) Gastroesophageal reflux disease Qualifiers: Esophagitis presence: without esophagitis Qualified Code(s): K21.9 - Gastro-esophageal reflux disease without esophagitis Is this a current diagnosis for this admission?: Yes (7) Hyperlipidemia Qualifiers: Hyperlipidemia type: unspecified Qualified Code(s): E78.5 - Hyperlipidemia, unspecified Is this a current diagnosis for this admission?: Yes (8) Hypertension Qualifiers: Hypertension type: essential hypertension Qualified Code(s): I10 - Essential (primary) hypertension Is this a current diagnosis for this admission?: Yes (9) Obstructive sleep apnea on CPAP Is this a current diagnosis for this admission?: Yes - Time Time Spent with patient: Less than 15 minutes - Plan Summary Plan Summary: They #6 of IV antibiotic to cover for bacteremia and urinary tract infection. Multiple drug allergies precludes transition to oral.
[2016-11-15] MEDS: ENOXAPARIN SODIUM INJ 40 MG/0.4 ML DISP.SYRIN SUBCUT SCH (09:32)
[2016-11-15] MEDS: CALAMINE/ZINC OXIDE LOTION 177 ML/BOTTLE TP SCH ×3 (09:33→17:22)
[2016-11-15] MEDS: BACITRACIN ZINC OINTMENT 15 GM TP SCH ×2 (09:33→17:22)
[2016-11-15] MEDS: ALPRAZOLAM 0.5 MG TABLET PO SCH ×2 (09:34→17:22)
[2016-11-15] MEDS: LACTOBACILLUS ACIDOPHILUS 250 MG TAB PO SCH ×2 (09:34→17:22)
[2016-11-15] MEDS: FAMOTIDINE 20 MG TABLET PO SCH ×2 (09:34→22:35)
[2016-11-15] MEDS: POLYETHYLENE GLYCOL 3350 POWDER 17 GM/1 PACKET PO SCH (09:35)
[2016-11-15] MEDS: ERTAPENEM SODIUM 1 GM in NORMAL SALINE 50 ML IV SCH (10:48)
[2016-11-16] MEDS: HYDROXYZINE HCL 10 MG TABLET PO SCH ×3 (06:58→22:55)
[2016-11-16] MEDS: METRONIDAZOLE 500 MG TABLET PO SCH ×3 (06:58→22:55)
[2016-11-16] MEDS: ENOXAPARIN SODIUM INJ 40 MG/0.4 ML DISP.SYRIN SUBCUT SCH (09:54)
[2016-11-16] MEDS: INSULIN LISPRO 100 UNIT/ML 3 ML VIAL SUBCUT PRN ×4 (09:54→23:12)
[2016-11-16] MEDS: ALPRAZOLAM 0.5 MG TABLET PO SCH ×2 (09:55→17:34)
[2016-11-16] MEDS: BACITRACIN ZINC OINTMENT 15 GM TP SCH ×2 (09:55→17:35)
[2016-11-16] MEDS: FAMOTIDINE 20 MG TABLET PO SCH ×2 (09:55→22:55)
[2016-11-16] MEDS: LACTOBACILLUS ACIDOPHILUS 250 MG TAB PO SCH ×2 (09:55→17:34)
[2016-11-16] MEDS: CALAMINE/ZINC OXIDE LOTION 177 ML/BOTTLE TP SCH ×3 (09:56→17:34)
[2016-11-16] MEDS: POLYETHYLENE GLYCOL 3350 POWDER 17 GM/1 PACKET PO SCH (09:56)
--- NOTE | 2016-11-16 10:23 | PDOC PROGRESS REPORT ---
Subjective Progress Note for:: 11/16/16 Subjective:: Patient complains of frequent bowel movement w/ MiraLAX. Otherwise no reported nausea vomiting chills or fever no shortness of breath nor chest pain. Physical Exam Vital Signs: Temp Pulse Resp BP Pulse Ox 98.1 F 87 17 127/62 H 100 11/16/16 07:35 11/16/16 07:35 11/16/16 07:35 11/16/16 07:35 11/16/16 07:35 Intake & Output 11/15/16 11/16/16 11/17/16 06:59 06:59 06:59 Intake Total 2270 2250 Output Total 651 Balance 2270 1599 Weight 72.4 kg 70.8 kg General appearance: PRESENT: no acute distress, cooperative Head exam: PRESENT: normocephalic Eye exam: PRESENT: EOMI Mouth exam: PRESENT: moist, neck supple Neck exam: ABSENT: JVD Respiratory exam: PRESENT: clear to auscultation douglas. ABSENT: rhonchi, wheezes Cardiovascular exam: PRESENT: RRR GI/Abdominal exam: PRESENT: soft. ABSENT: distended, tenderness Extremities exam: ABSENT: pedal edema Neurological exam: PRESENT: alert, awake, oriented to situation Results Laboratory Results: 11/15/16 04:07 11/13/16 06:15 Impressions: Chest X-Ray 11/10/16 14:08 IMPRESSION: STABLE CHRONIC CHANGES. NO ACUTE RADIOGRAPHIC FINDING IN THE CHEST. Head CT 11/10/16 14:11 IMPRESSION: MILD CHRONIC CHANGES OF ATROPHY AND MICROVASCULAR ISCHEMIA. SOFT TISSUE SWELLING ADJACENT TO THE RIGHT ORBIT. NO ACUTE FINDINGS. Assessment & Plan - Diagnosis (1) Altered mental status, unspecified Qualifiers: Altered mental status type: unspecified Qualified Code(s): R41.82 - Altered mental status, unspecified Is this a current diagnosis for this admission?: Yes (2) Dehydration Is this a current diagnosis for this admission?: Yes (3) UTI (urinary tract infection) Qualifiers: Urinary tract infection type: site unspecified Hematuria presence: without hematuria Qualified Code(s): N39.0 - Urinary tract infection, site not specified; R31.9 - Hematuria, unspecified Is this a current diagnosis for this admission?: Yes (4) E coli bacteremia Is this a current diagnosis for this admission?: Yes (5) Anemia of chronic disease Is this a current diagnosis for this admission?: Yes (6) Gastroesophageal reflux disease Qualifiers: Esophagitis presence: without esophagitis Qualified Code(s): K21.9 - Gastro-esophageal reflux disease without esophagitis Is this a current diagnosis for this admission?: Yes (7) Hyperlipidemia Qualifiers: Hyperlipidemia type: unspecified Qualified Code(s): E78.5 - Hyperlipidemia, unspecified Is this a current diagnosis for this admission?: Yes (8) Hypertension Qualifiers: Hypertension type: essential hypertension Qualified Code(s): I10 - Essential (primary) hypertension Is this a current diagnosis for this admission?: Yes (9) Obstructive sleep apnea on CPAP Is this a current diagnosis for this admission?: Yes - Time Time Spent with patient: Less than 15 minutes - Plan Summary Plan Summary: Day 7 of IV antibiotics today. Continue current antibiotic through the weekend and [facility] on Friday.
[2016-11-16] MEDS: ERTAPENEM SODIUM 1 GM in NORMAL SALINE 50 ML IV SCH (11:08)
[2016-11-16] MEDS: DOCUSATE SODIUM 100 MG CAPSULE PO SCH (17:34)
[2016-11-16] MEDS: ACETAMINOPHEN 325 MG TABLET PO PRN (18:37)
[2016-11-17] MEDS: NORMAL SALINE 1000 ML 1,000 ML IV PRN (03:46)
[2016-11-17] MEDS: HYDROXYZINE HCL 10 MG TABLET PO SCH ×3 (06:46→21:48)
[2016-11-17] MEDS: METRONIDAZOLE 500 MG TABLET PO SCH ×3 (06:46→21:48)
--- NOTE | 2016-11-17 07:54 | PDOC PROGRESS REPORT ---
Subjective Progress Note for:: 11/17/16 Subjective:: Patient has diarrhea but is on laxative. Receive MiraLAX yesterday prior to being discontinued. No chills or fever. No nausea or vomiting. No melena hematochezia. No reported shortness of breath or temperature spikes. Physical Exam Vital Signs: Temp Pulse Resp BP Pulse Ox 98.0 F 81 16 136/71 H 98 11/17/16 03:51 11/17/16 03:51 11/17/16 03:51 11/17/16 03:51 11/17/16 03:51 Intake & Output 11/16/16 11/17/16 11/18/16 06:59 06:59 06:59 Intake Total 2250 2335 Output Total 651 400 Balance 1599 1935 Weight 70.8 kg 70.8 kg General appearance: PRESENT: no acute distress, cooperative, obese Head exam: PRESENT: normocephalic Eye exam: PRESENT: EOMI Mouth exam: PRESENT: moist, neck supple Respiratory exam: PRESENT: unlabored Cardiovascular exam: PRESENT: RRR GI/Abdominal exam: PRESENT: hyperactive bowel sounds, soft. ABSENT: distended Extremities exam: ABSENT: pedal edema Neurological exam: PRESENT: alert, awake, oriented to situation Skin exam: PRESENT: dry, warm. ABSENT: cyanosis Results Laboratory Results: 11/15/16 04:07 11/13/16 06:15 Impressions: Chest X-Ray 11/10/16 14:08 IMPRESSION: STABLE CHRONIC CHANGES. NO ACUTE RADIOGRAPHIC FINDING IN THE CHEST. Head CT 11/10/16 14:11 IMPRESSION: MILD CHRONIC CHANGES OF ATROPHY AND MICROVASCULAR ISCHEMIA. SOFT TISSUE SWELLING ADJACENT TO THE RIGHT ORBIT. NO ACUTE FINDINGS. Assessment & Plan - Diagnosis (1) Altered mental status, unspecified Qualifiers: Altered mental status type: unspecified Qualified Code(s): R41.82 - Altered mental status, unspecified Is this a current diagnosis for this admission?: Yes (2) Dehydration Is this a current diagnosis for this admission?: Yes (3) UTI (urinary tract infection) Qualifiers: Urinary tract infection type: site unspecified Hematuria presence: without hematuria Qualified Code(s): N39.0 - Urinary tract infection, site not specified; R31.9 - Hematuria, unspecified Is this a current diagnosis for this admission?: Yes (4) E coli bacteremia Is this a current diagnosis for this admission?: Yes (5) Anemia of chronic disease Is this a current diagnosis for this admission?: Yes (6) Gastroesophageal reflux disease Qualifiers: Esophagitis presence: without esophagitis Qualified Code(s): K21.9 - Gastro-esophageal reflux disease without esophagitis Is this a current diagnosis for this admission?: Yes (7) Hyperlipidemia Qualifiers: Hyperlipidemia type: unspecified Qualified Code(s): E78.5 - Hyperlipidemia, unspecified Is this a current diagnosis for this admission?: Yes (8) Hypertension Qualifiers: Hypertension type: essential hypertension Qualified Code(s): I10 - Essential (primary) hypertension Is this a current diagnosis for this admission?: Yes (9) Obstructive sleep apnea on CPAP Is this a current diagnosis for this admission?: Yes - Time Time Spent with patient: 15-24 minutes - Plan Summary Plan Summary: Check stool for Clostridium difficile toxin. Lactobacillus as well as Flagyl. Continue IV antibiotics for bacteremia and urinary tract infection. Continue supportive care. Discontinue laxatives and hold stool softeners.
[2016-11-17] MEDS: INSULIN LISPRO 100 UNIT/ML 3 ML VIAL SUBCUT PRN ×4 (09:37→22:11)
[2016-11-17] MEDS: ENOXAPARIN SODIUM INJ 40 MG/0.4 ML DISP.SYRIN SUBCUT SCH (09:37)
[2016-11-17] MEDS: CALAMINE/ZINC OXIDE LOTION 177 ML/BOTTLE TP SCH ×3 (09:38→17:42)
[2016-11-17] MEDS: BACITRACIN ZINC OINTMENT 15 GM TP SCH ×2 (09:38→17:42)
[2016-11-17] MEDS: ALPRAZOLAM 0.5 MG TABLET PO SCH (09:38)
[2016-11-17] MEDS: FAMOTIDINE 20 MG TABLET PO SCH ×2 (09:38→21:48)
[2016-11-17] MEDS: LACTOBACILLUS ACIDOPHILUS 250 MG TAB PO SCH ×2 (09:38→17:41)
[2016-11-17] MEDS: DOCUSATE SODIUM 100 MG CAPSULE PO SCH ×2 (09:39→17:42)
[2016-11-17] MEDS: ERTAPENEM SODIUM 1 GM in NORMAL SALINE 50 ML IV SCH (11:52)
[2016-11-18] MEDS: HYDROXYZINE HCL 10 MG TABLET PO SCH ×3 (06:02→21:19)
[2016-11-18] MEDS: METRONIDAZOLE 500 MG TABLET PO SCH (06:02)
[2016-11-18] MEDS: NORMAL SALINE 1000 ML 1,000 ML IV PRN (06:04)
[2016-11-18] MEDS: INSULIN LISPRO 100 UNIT/ML 3 ML VIAL SUBCUT PRN ×4 (06:30→21:19)
[2016-11-18] MEDS: LACTOBACILLUS ACIDOPHILUS 250 MG TAB PO SCH ×2 (09:38→17:53)
[2016-11-18] MEDS: ENOXAPARIN SODIUM INJ 40 MG/0.4 ML DISP.SYRIN SUBCUT SCH (09:38)
[2016-11-18] MEDS: FAMOTIDINE 20 MG TABLET PO SCH ×2 (09:38→21:19)
[2016-11-18] MEDS: CALAMINE/ZINC OXIDE LOTION 177 ML/BOTTLE TP SCH ×3 (09:39→17:55)
[2016-11-18] MEDS: DOCUSATE SODIUM 100 MG CAPSULE PO SCH ×2 (09:39→17:55)
[2016-11-18] MEDS: BACITRACIN ZINC OINTMENT 15 GM TP SCH ×2 (09:39→17:54)
[2016-11-18] MEDS: ERTAPENEM SODIUM 1 GM in NORMAL SALINE 50 ML IV SCH (10:23)
--- NOTE | 2016-11-18 12:03 | PDOC PROGRESS REPORT ---
Subjective Progress Note for:: 11/18/16 Subjective:: Patient has soft stools but no reported chills or fever. No shortness of breath or chest pain. Denies any PND orthopnea. Denies dizziness or headache. 9 days of IV antibiotic today. Stool for Clostridium difficile toxin is negative. Physical Exam Vital Signs: Temp Pulse Resp BP Pulse Ox 98.6 F 86 18 127/57 H 99 11/18/16 11:25 11/18/16 11:25 11/18/16 11:25 11/18/16 11:25 11/18/16 11:25 Intake & Output 11/17/16 11/18/16 11/19/16 06:59 06:59 06:59 Intake Total 2905 2477 Output Total 400 Balance 2505 2477 Weight 70.8 kg 70.8 kg General appearance: PRESENT: no acute distress, cooperative Head exam: PRESENT: normocephalic Eye exam: PRESENT: EOMI Mouth exam: PRESENT: moist, neck supple Neck exam: ABSENT: JVD Respiratory exam: PRESENT: clear to auscultation douglas. ABSENT: rhonchi, wheezes Cardiovascular exam: PRESENT: RRR. ABSENT: gallop GI/Abdominal exam: PRESENT: soft. ABSENT: distended, tenderness Extremities exam: PRESENT: other - Trace pretibial edema Neurological exam: PRESENT: alert, awake, oriented to situation Skin exam: PRESENT: dry, warm. ABSENT: cyanosis Results Laboratory Results: 11/15/16 04:07 11/13/16 06:15 Impressions: Chest X-Ray 11/10/16 14:08 IMPRESSION: STABLE CHRONIC CHANGES. NO ACUTE RADIOGRAPHIC FINDING IN THE CHEST. Head CT 11/10/16 14:11 IMPRESSION: MILD CHRONIC CHANGES OF ATROPHY AND MICROVASCULAR ISCHEMIA. SOFT TISSUE SWELLING ADJACENT TO THE RIGHT ORBIT. NO ACUTE FINDINGS. Assessment & Plan - Diagnosis (1) Altered mental status, unspecified Qualifiers: Altered mental status type: unspecified Qualified Code(s): R41.82 - Altered mental status, unspecified Is this a current diagnosis for this admission?: Yes (2) Bacteremia due to Klebsiella pneumoniae Is this a current diagnosis for this admission?: Yes (3) Dehydration Is this a current diagnosis for this admission?: Yes (4) UTI (urinary tract infection) Qualifiers: Urinary tract infection type: site unspecified Hematuria presence: without hematuria Qualified Code(s): N39.0 - Urinary tract infection, site not specified; R31.9 - Hematuria, unspecified Is this a current diagnosis for this admission?: Yes (5) Anemia of chronic disease Is this a current diagnosis for this admission?: Yes (6) Gastroesophageal reflux disease Qualifiers: Esophagitis presence: without esophagitis Qualified Code(s): K21.9 - Gastro-esophageal reflux disease without esophagitis Is this a current diagnosis for this admission?: Yes (7) Hyperlipidemia Qualifiers: Hyperlipidemia type: unspecified Qualified Code(s): E78.5 - Hyperlipidemia, unspecified Is this a current diagnosis for this admission?: Yes (8) Hypertension Qualifiers: Hypertension type: essential hypertension Qualified Code(s): I10 - Essential (primary) hypertension Is this a current diagnosis for this admission?: Yes (9) Obstructive sleep apnea on CPAP Is this a current diagnosis for this admission?: Yes - Time Time Spent with patient: 25-34 minutes - Plan Summary Plan Summary: We will complete a total of 10 days of IV antibiotic prior to sending back the patient to the half-way. Continue other medications and supportive care. We will discontinue intravenous fluid. Continue physical therapy.
[2016-11-18] MEDS: ACETAMINOPHEN 325 MG TABLET PO PRN (13:33)
--- NOTE | 2016-11-18 15:28 | PDOC DISCHARGE SUMMARY ---
<LYNNE WILSON - Last Filed: 11/18/16 15:29> General - Admit/Disc Date/PCP Admission Date/Primary Care Provider: 11/10/16 18:43 - Discharge Diagnosis (1) Altered mental status, unspecified Is this a current diagnosis for this admission?: Yes (2) Bacteremia due to Klebsiella pneumoniae Is this a current diagnosis for this admission?: Yes (3) Dehydration Is this a current diagnosis for this admission?: Yes (4) UTI (urinary tract infection) Is this a current diagnosis for this admission?: Yes (5) Anemia of chronic disease Is this a current diagnosis for this admission?: Yes (6) Gastroesophageal reflux disease Is this a current diagnosis for this admission?: Yes (7) Hyperlipidemia Is this a current diagnosis for this admission?: Yes (8) Hypertension Is this a current diagnosis for this admission?: Yes (9) Obstructive sleep apnea on CPAP Is this a current diagnosis for this admission?: Yes - Additional Information Resuscitation Status: Full Code Discharge Diet: Cardiac Discharge Activity: Activity As Tolerated, Balance Activity w/Rest, Slowly Increase Activity Home Medications: Aspirin [Aspirin 81 mg Chewable Tablet] 81 mg PO DAILY 11/11/16 Atorvastatin Calcium [Lipitor 20 mg Tablet] 20 mg PO QHS 11/11/16 Bupropion HCl [Wellbutrin Xl 300mg 24hr Tablet] 300 mg PO DAILY 11/11/16 Calamine [Calamine Lotion] 1 applic TP TID 11/11/16 Dimethicone/Colloidal Oatmeal [Aveeno Daily Moist Lotion] 1 applic TP BID Escitalopram Oxalate [Lexapro] 40 mg PO DAILY 11/11/16 Ferrous Sulfate [Feosol 325 mg Tablet] 325 mg PO DAILY 11/11/16 Hydroxyzine HCl [Atarax 10 mg Tablet] 10 mg PO Q8 11/11/16 Insulin Aspart [Novolog Insulin (Aspart) 100 unit/mL] 0 unit SUBCUT .SLD SCALE 11/11/16 Insulin Detemir [Levemir Insulin 100 units/mL] 14 unit SUBCUT QPM 11/11/16 Metformin HCl [Glucophage] 500 mg PO BIDBS 11/11/16 Multivitamin [Tab-A-Jose (Multiple Vitamin) Tablet] 1 tab PO DAILY 11/11/16 Nystatin [Mycostatin Topical Powder 15 gm] 1 applic TP DAILY 11/11/16 Omeprazole 20 mg PO DAILY 11/11/16 Oxybutynin Chloride [Ditropan Xl] 10 mg PO QAM 11/11/16 Polyvinyl Alcohol [Artificial Tears] 2 drop OU QAM 11/11/16 Sennosides [Senna Laxative] 8.6 mg PO BID 11/11/16 Topiramate [Topamax] 50 mg PO Q12 11/11/16 Trazodone HCl [Desyrel 50 mg Tablet] 25 mg PO QHS 11/11/16 Triamcinolone Acetonide [Aristocort 0.1% Cream] 1 applic TP BID 11/11/16 Docusate Sodium [Colace 100 mg Capsule] 100 mg PO BID capsule 11/18/16 Tramadol HCl [Ultram] 50 mg PO Q8 PRN #25 tablet 11/18/16 History of Present Illness Patient complains of: Altered mental status History of Present Illness: BEKA WALDEN is a 66 year old female at the [facility] who presents with nausea vomiting and a urinary tract infection. Patient reports over the last 2- 3 days she has had worsening nausea and some dysuria. She denies any fevers or chills or hematuria. She denies any abdominal pain. The patient is she also has a hematoma around the allergic to multiple antibiotics. Right periorbital area from a fall several days ago. She denies having any loss of consciousness associated with this and denies any loss of vision or double vision. For details please refer to history and physical examination performed by the admitting physician. Hospital Course Hospital Course: The patient was admitted to the medical floor with telemetry. The patient was hydrated with normal saline. Patient was started on antibiotic with gentamicin. The patient received ceftriaxone in the emergency room but has allergies to penicillin. No significant reaction was noted however. Blood culture however growing gram-negative rods including the urine and therefore antibiotic was changed to Invanz. Eventually the blood and urine culture grew Klebsiella pneumonia but without ESBL noted. The patient will require at least 7 days of IV antibiotic and another week of oral antibiotic however due to her multiple allergies and resistance of the organism to tetracyclines patient was then opted to be given 10 days of IV antibiotics with Invanz. The patient's WBC normalized. Patient was afebrile. Course was noted for diarrhea likely related to laxatives. Clostridium difficile toxin was negative. She was placed on lactobacillus. She has ecchymosis on the face she sustained when she fell and this has improved during the course of this hospitalization. Physical therapy was begun. The rest of the hospital stays unremarkable. Physical Exam Vital Signs: Temp Pulse Resp BP Pulse Ox 98.6 F 86 18 127/57 H 99 11/18/16 11:25 11/18/16 11:25 11/18/16 11:25 11/18/16 11:25 11/18/16 11:25 Intake & Output 11/17/16 11/18/16 11/19/16 06:59 06:59 06:59 Intake Total 2905 2477 Output Total 400 Balance 2505 2477 Weight 70.8 kg 70.8 kg General appearance: PRESENT: no acute distress, other - Facial ecchymosis less Head exam: PRESENT: normocephalic Eye exam: PRESENT: EOMI Mouth exam: PRESENT: moist, neck supple Neck exam: ABSENT: JVD Respiratory exam: PRESENT: clear to auscultation douglas Cardiovascular exam: PRESENT: RRR. ABSENT: gallop GI/Abdominal exam: PRESENT: hyperactive bowel sounds, soft. ABSENT: distended, tenderness Extremities exam: ABSENT: pedal edema Neurological exam: PRESENT: alert, awake, oriented to situation Skin exam: PRESENT: dry, warm. ABSENT: cyanosis Results Laboratory Results: 11/15/16 04:07 11/13/16 06:15 Impressions: Chest X-Ray 11/10/16 14:08 IMPRESSION: STABLE CHRONIC CHANGES. NO ACUTE RADIOGRAPHIC FINDING IN THE CHEST. Head CT 11/10/16 14:11 IMPRESSION: MILD CHRONIC CHANGES OF ATROPHY AND MICROVASCULAR ISCHEMIA. SOFT TISSUE SWELLING ADJACENT TO THE RIGHT ORBIT. NO ACUTE FINDINGS. Qualifiers PATEINT BEING DISCHARGED WITH ANY OF THE FOLLOWING DIAGNOSIS?: No Plan Discharge Plan: Follow-up with primary care physician 1 week Time Spent: Less than 30 Minutes <JACKSON IRNCON - Last Filed: 11/19/16 11:09> General - Admit/Disc Date/PCP Admission Date/Primary Care Provider: 11/10/16 18:43 Discharge Date: 11/19/16 - Discharge Diagnosis (1) Dehydration Is this a current diagnosis for this admission?: Yes (2) UTI (urinary tract infection) Is this a current diagnosis for this admission?: Yes (3) Hypertension Is this a current diagnosis for this admission?: Yes (4) Obstructive sleep apnea on CPAP Is this a current diagnosis for this admission?: Yes (5) Hyperlipidemia Is this a current diagnosis for this admission?: Yes (6) Gastroesophageal reflux disease Is this a current diagnosis for this admission?: Yes (7) Type 2 diabetes mellitus Is this a current diagnosis for this admission?: Yes (8) Acute renal failure Is this a current diagnosis for this admission?: Yes History of Present Illness History of Present Illness: FANTASMA WALDEN is a 66 year old female Physical Exam Vital Signs: Temp Pulse Resp BP Pulse Ox 98.4 F 95 16 116/60 96 11/19/16 07:19 11/19/16 07:19 11/19/16 07:19 11/19/16 07:19 11/19/16 07:19 Intake & Output 11/18/16 11/19/16 11/20/16 06:59 06:59 06:59 Intake Total 2477 3330 Output Total 600 Balance 2477 2730 Weight 70.8 kg 71.2 kg Results Laboratory Results: 11/15/16 04:07 11/13/16 06:15 Impressions: Chest X-Ray 11/10/16 14:08 IMPRESSION: STABLE CHRONIC CHANGES. NO ACUTE RADIOGRAPHIC FINDING IN THE CHEST. Head CT 11/10/16 14:11
[2016-11-19] MEDS: HYDROXYZINE HCL 10 MG TABLET PO SCH ×2 (06:09→14:25)
[2016-11-19] MEDS: INSULIN LISPRO 100 UNIT/ML 3 ML VIAL SUBCUT PRN ×3 (07:51→16:35)
[2016-11-19] MEDS: FAMOTIDINE 20 MG TABLET PO SCH (09:28)
[2016-11-19] MEDS: ENOXAPARIN SODIUM INJ 40 MG/0.4 ML DISP.SYRIN SUBCUT SCH (09:28)
[2016-11-19] MEDS: LACTOBACILLUS ACIDOPHILUS 250 MG TAB PO SCH ×2 (09:28→17:02)
[2016-11-19] MEDS: DOCUSATE SODIUM 100 MG CAPSULE PO SCH ×2 (09:28→17:01)
[2016-11-19] MEDS: CALAMINE/ZINC OXIDE LOTION 177 ML/BOTTLE TP SCH ×3 (09:29→17:02)
[2016-11-19] MEDS ORDERED: ERTAPENEM SODIUM 1 GM in NORMAL SALINE 50 ML IV SCH (10:00)
[2016-11-19] MEDS: ACETAMINOPHEN 325 MG TABLET PO PRN (10:32)
--- NOTE | 2016-11-19 11:12 | PDOC PROGRESS REPORT ---
Subjective Progress Note for:: 11/19/16 Subjective:: Patient complains of some loose bowel movements but no overt diarrhea Physical Exam Vital Signs: Temp Pulse Resp BP Pulse Ox 98.4 F 95 16 116/60 96 11/19/16 07:19 11/19/16 07:19 11/19/16 07:19 11/19/16 07:19 11/19/16 07:19 Intake & Output 11/18/16 11/19/16 11/20/16 06:59 06:59 06:59 Intake Total 2477 3330 Output Total 600 Balance 2477 2730 Weight 70.8 kg 71.2 kg General appearance: PRESENT: no acute distress Eye exam: PRESENT: conjunctiva pink. ABSENT: scleral icterus Mouth exam: PRESENT: moist, tongue midline Neck exam: ABSENT: JVD Respiratory exam: PRESENT: clear to auscultation douglas. ABSENT: rales, rhonchi, wheezes Cardiovascular exam: PRESENT: RRR. ABSENT: diastolic murmur, rubs, systolic murmur Pulses: PRESENT: normal dorsalis pedis pul GI/Abdominal exam: PRESENT: normal bowel sounds, soft. ABSENT: distended, guarding, mass, organolmegaly, rebound, tenderness Extremities exam: ABSENT: calf tenderness, clubbing, pedal edema Neurological exam: PRESENT: alert, awake, oriented to person, oriented to place , oriented to time, oriented to situation, CN II-XII grossly intact. ABSENT: motor sensory deficit Psychiatric exam: PRESENT: appropriate affect Skin exam: PRESENT: dry, intact, warm. ABSENT: cyanosis, rash Results Laboratory Results: 11/15/16 04:07 11/13/16 06:15 Impressions: Chest X-Ray 11/10/16 14:08 IMPRESSION: STABLE CHRONIC CHANGES. NO ACUTE RADIOGRAPHIC FINDING IN THE CHEST. Head CT 11/10/16 14:11 IMPRESSION: MILD CHRONIC CHANGES OF ATROPHY AND MICROVASCULAR ISCHEMIA. SOFT TISSUE SWELLING ADJACENT TO THE RIGHT ORBIT. NO ACUTE FINDINGS. Assessment & Plan - Diagnosis (1) Dehydration Is this a current diagnosis for this admission?: YesPlan: Resolved (2) UTI (urinary tract infection) Qualifiers: Urinary tract infection type: site unspecified Hematuria presence: without hematuria Qualified Code(s): N39.0 - Urinary tract infection, site not specified; R31.9 - Hematuria, unspecified Is this a current diagnosis for this admission?: YesPlan: Secondary to Klebsiella. Patient has finished 10 days of Invanz. (3) Hypertension Qualifiers: Hypertension type: essential hypertension Qualified Code(s): I10 - Essential (primary) hypertension Is this a current diagnosis for this admission?: Yes (4) Obstructive sleep apnea on CPAP Is this a current diagnosis for this admission?: Yes (5) Hyperlipidemia Qualifiers: Hyperlipidemia type: unspecified Qualified Code(s): E78.5 - Hyperlipidemia, unspecified Is this a current diagnosis for this admission?: Yes (6) Gastroesophageal reflux disease Qualifiers: Esophagitis presence: without esophagitis Qualified Code(s): K21.9 - Gastro-esophageal reflux disease without esophagitis Is this a current diagnosis for this admission?: Yes (7) Type 2 diabetes mellitus Qualifiers: Diabetes mellitus complication status: without complication Is this a current diagnosis for this admission?: Yes (8) Acute renal failure Is this a current diagnosis for this admission?: YesPlan: Resolved. - Time Time Spent with patient: 25-34 minutes - Plan Summary Plan Summary: Is discharged to [facility].
--- NOTE | 2016-11-19 11:16 | PDOC DISCHARGE SUMMARY ---
General - Admit/Disc Date/PCP Admission Date/Primary Care Provider: 11/10/16 18:43 Discharge Date: 11/19/16 - Discharge Diagnosis (1) Dehydration Is this a current diagnosis for this admission?: Yes (2) UTI (urinary tract infection) Is this a current diagnosis for this admission?: YesSummary: Secondary to Klebsiella pneumoniae. Has completed 10 days of IV Invanz (3) Hypertension Is this a current diagnosis for this admission?: Yes (4) Obstructive sleep apnea on CPAP Is this a current diagnosis for this admission?: Yes (5) Hyperlipidemia Is this a current diagnosis for this admission?: Yes (6) Gastroesophageal reflux disease Is this a current diagnosis for this admission?: Yes (7) Type 2 diabetes mellitus Is this a current diagnosis for this admission?: Yes (8) Acute renal failure Is this a current diagnosis for this admission?: YesSummary: Resolved - Additional Information Resuscitation Status: Full Code Discharge Diet: Cardiac Discharge Activity: Activity As Tolerated, Balance Activity w/Rest, Slowly Increase Activity Home Medications: Aspirin [Aspirin 81 mg Chewable Tablet] 81 mg PO DAILY 11/11/16 Atorvastatin Calcium [Lipitor 20 mg Tablet] 20 mg PO QHS 11/11/16 Bupropion HCl [Wellbutrin Xl 300mg 24hr Tablet] 300 mg PO DAILY 11/11/16 Calamine [Calamine Lotion] 1 applic TP TID 11/11/16 Dimethicone/Colloidal Oatmeal [Aveeno Daily Moist Lotion] 1 applic TP BID Escitalopram Oxalate [Lexapro] 40 mg PO DAILY 11/11/16 Ferrous Sulfate [Feosol 325 mg Tablet] 325 mg PO DAILY 11/11/16 Hydroxyzine HCl [Atarax 10 mg Tablet] 10 mg PO Q8 11/11/16 Insulin Aspart [Novolog Insulin (Aspart) 100 unit/mL] 0 unit SUBCUT .SLD SCALE 11/11/16 Insulin Detemir [Levemir Insulin 100 units/mL] 14 unit SUBCUT QPM 11/11/16 Metformin HCl [Glucophage] 500 mg PO BIDBS 11/11/16 Multivitamin [Tab-A-Jose (Multiple Vitamin) Tablet] 1 tab PO DAILY 11/11/16 Nystatin [Mycostatin Topical Powder 15 gm] 1 applic TP DAILY 11/11/16 Omeprazole 20 mg PO DAILY 11/11/16 Oxybutynin Chloride [Ditropan Xl] 10 mg PO QAM 11/11/16 Polyvinyl Alcohol [Artificial Tears] 2 drop OU QAM 11/11/16 Sennosides [Senna Laxative] 8.6 mg PO BID 11/11/16 Topiramate [Topamax] 50 mg PO Q12 11/11/16 Trazodone HCl [Desyrel 50 mg Tablet] 25 mg PO QHS 11/11/16 Triamcinolone Acetonide [Aristocort 0.1% Cream] 1 applic TP BID 11/11/16 Docusate Sodium [Colace 100 mg Capsule] 100 mg PO BID capsule 11/18/16 Tramadol HCl [Ultram] 50 mg PO Q8 PRN #25 tablet 11/18/16 History of Present Illness History of Present Illness: FANTASMA WALDEN is a 66 year old female with multiple antibiotic allergies who presented with dysuria nausea and vomiting for 3 days. Patient has not had any fevers or chills or hematuria. The patient also had a recent fall several days prior to presentation with right periorbital hematoma. Hospital Course Hospital Course: 6-year-old female who presented with a urinary tract infection along with dehydration secondary to nausea and vomiting. Patient also was noted to have acute renal failure. She was treated with IV fluids and started on antibiotics. The patient unfortunately has multiple drug allergies. Patient was treated with Invanz for total of 10 days. She initially was given gentamicin also because of blood cultures with gram-negative rods. Blood cultures eventually grew out Klebsiella pneumoniae. Patient did have some complaints of diarrhea but had a negative C. difficile. She continues to have loose bowel movements but no more diarrhea and is felt that she is stable for transfer back to the [facility]. All of her other medical problems were stable during this hospitalization. Physical Exam Vital Signs: Temp Pulse Resp BP Pulse Ox 98.4 F 95 16 116/60 96 11/19/16 07:19 11/19/16 07:19 11/19/16 07:19 11/19/16 07:19 11/19/16 07:19 Intake & Output 11/18/16 11/19/16 11/20/16 06:59 06:59 06:59 Intake Total 2477 3330 Output Total 600 Balance 2477 2730 Weight 70.8 kg 71.2 kg General appearance: PRESENT: no acute distress Eye exam: PRESENT: conjunctiva pink. ABSENT: scleral icterus Mouth exam: PRESENT: moist, tongue midline Respiratory exam: PRESENT: clear to auscultation douglas. ABSENT: rales, rhonchi, wheezes Cardiovascular exam: PRESENT: RRR. ABSENT: diastolic murmur, rubs, systolic murmur GI/Abdominal exam: PRESENT: normal bowel sounds, soft. ABSENT: distended, guarding, mass, organolmegaly, rebound, tenderness Extremities exam: ABSENT: calf tenderness, clubbing, pedal edema Neurological exam: PRESENT: alert, awake, oriented to person, oriented to place , oriented to time, oriented to situation, CN II-XII grossly intact. ABSENT: motor sensory deficit Psychiatric exam: PRESENT: appropriate affect Skin exam: PRESENT: dry, intact, warm. ABSENT: cyanosis, rash Results Laboratory Results: 11/15/16 04:07 11/13/16 06:15 Impressions: Chest X-Ray 11/10/16 14:08 IMPRESSION: STABLE CHRONIC CHANGES. NO ACUTE RADIOGRAPHIC FINDING IN THE CHEST. Head CT 11/10/16 14:11 IMPRESSION: MILD CHRONIC CHANGES OF ATROPHY AND MICROVASCULAR ISCHEMIA. SOFT TISSUE SWELLING ADJACENT TO THE RIGHT ORBIT. NO ACUTE FINDINGS. Qualifiers PATEINT BEING DISCHARGED WITH ANY OF THE FOLLOWING DIAGNOSIS?: No Plan Discharge Plan: Transfer back to the [facility]. Time Spent: Greater than 30 Minutes
[2016-11-19 20:01] VITALS: BP 126/62
== END 2016-11-19 20:10 | disposition home health service (06) | DRG 872 ==
LOC: ER 13:35 → EH 18:43 → 5 21:40
PROVIDERS: ADMIT Internal Medicine; ATTEND Internal Medicine
DX: R78.81 Bacteremia (principal); B96.20 Unspecified Escherichia coli [E. coli] as the cause of diseases classified elsewhere; N17.9 Acute kidney failure, unspecified; N39.0 Urinary tract infection, site not specified; B96.1 Klebsiella pneumoniae [K. pneumoniae] as the cause of diseases classified elsewhere; E86.0 Dehydration; D63.8 Anemia in other chronic diseases classified elsewhere; E11.9 Type 2 diabetes mellitus without complications; E78.5 Hyperlipidemia, unspecified; I10 Essential (primary) hypertension; K21.9 Gastro-esophageal reflux disease without esophagitis; M19.90 Unspecified osteoarthritis, unspecified site; F32.9 Major depressive disorder, single episode, unspecified; F43.10 Post-traumatic stress disorder, unspecified; G47.33 Obstructive sleep apnea (adult) (pediatric); S05.11XA Contusion of eyeball and orbital tissues, right eye, initial encounter; W19.XXXA Unspecified fall, initial encounter; Y93.9 Activity, unspecified; Y92.9 Unspecified place or not applicable; Y99.9 Unspecified external cause status; Z79.82 Long term (current) use of aspirin; Z79.4 Long term (current) use of insulin; Z79.899 Other long term (current) drug therapy; Z90.49 Acquired absence of other specified parts of digestive tract; Z88.1 Allergy status to other antibiotic agents; Z88.2 Allergy status to sulfonamides; Z88.0 Allergy status to penicillin; Z88.8 Allergy status to other drugs, medicaments and biological substances; Z96.653 Presence of artificial knee joint, bilateral
CPT/HCPCS: 36415; 51702; 70450; 71020; 80048; 80053; 80170; 81001; 82962; 83690; 85025; 85027; 87040; 87077; 87086; 87088; 87186; 87493; 96361; 96365; 96375; 96376; 99285; G8978-GP; G8979-GP; J0696; J1335; J1580; J1650; J1815; J2405; J3480; J3490; J7030

== ENCOUNTER 2016-11-30 06:42 | Inpatient (IN) | payer MEDICARE, MEDICAID ==
[2016-11-30 07:17] LABS: ABSOLUTE BASOPHILS # (AUTO) 0.1 10^3/uL (0.0-0.2); ABSOLUTE LYMPHOCYTES (AUTO) 0.7 10^3/uL (0.5-4.7); ABSOLUTE MONOCYTES (AUTO) 0.3 10^3/uL (0.1-1.4); ABSOLUTE NEUT (AUTO) 5.1 10^3/uL (1.7-8.2); BASOPHILS % (AUTO) 0.8 % (0-2); EOSINOPHILS % (AUTO) 0.5 % (0-6); HEMATOCRIT 26.9 % (36.0-47.0); HEMOGLOBIN 8.7 g/dL (12.0-15.5); HGB HCT DIFFERENCE -0.8; LYMPHOCYTES % (AUTO) 11.4 % (13-45); MEAN CORPUSCULAR HEMOGLOBIN 28.6 pg (27.0-33.4); MEAN CORPUSCULAR HGB CONC 32.5 g/dL (32.0-36.0); MEAN CORPUSCULAR VOLUME 88 fl (80-97); MONOCYTES % (AUTO) 4.1 % (3-13); RED BLOOD COUNT 3.06 10^6/uL (3.72-5.28); SEGMENTED NEUTROPHILS % (AUTO) 83.2 % (42-78); WHITE BLOOD COUNT 6.2 10^3/uL (4.0-10.5)
[2016-11-30] MEDS ORDERED: AZITHROMYCIN INJ 500 MG VIAL IV ONE (07:27)
--- NOTE | 2016-11-30 07:27 | ER Document Report ---
ED General - General Mode of Arrival: Medic Information source: Emergency Med Personnel TRAVEL OUTSIDE OF THE [place] IN LAST 30 DAYS: No - HPI Onset: This morning Associated symptoms: Other - see above <DAT GRAHAM - Last Filed: 11/30/16 10:14> <VENITA BREWER - Last Filed: 12/01/16 13:16> - General Chief Complaint: Unresponsive Stated Complaint: UNRESPONSIVE Time Seen by Provider: 11/30/16 06:59 Notes: Patient is a 66 year old female who presents to the ED via EMS. Patient is on Hospice care at [facility]. Patient was reported to get a dose of Insluin last night around 1999 and this morning was found to have an accu check of 37. EMS states patients blood pressure was in the70s and IV fluid was given. On arrival patients pressure is 99/53. Patient is on baseline nasal cannula. Patient is unresponsive, non verbal which is not normal for patient. (DAT GRAHAM) - Related Data Allergies/Adverse Reactions: ciprofloxacin [From Cipro] Allergy (Verified 10/31/16 18:36) Rash/Hives meperidine [Meperidine] Allergy (Verified 10/31/16 18:36) Rash/Hives methadone [Methadone] Allergy (Verified 10/31/16 18:36) Rash/Hives Penicillins Allergy (Verified 10/31/16 18:36) Anaphylaxis, Rash Quinolones Allergy (Verified 11/30/16 07:06) Sulfa (Sulfonamide Antibiotics) Allergy (Verified 10/31/16 18:36) Rash/Hives Home Medications: Current Home Medications Alprazolam [Xanax] 1 mg PO Q12 11/30/16 [History] Bupropion HCl [Wellbutrin Xl 300mg 24hr Tablet] 300 mg PO DAILY 11/30/16 [ History] Escitalopram Oxalate [Lexapro] 40 mg PO DAILY 11/30/16 [History] Hydroxyzine HCl [Atarax 10 mg Tablet] 10 mg PO Q8 11/30/16 [History] Insulin Aspart [Novolog Insulin (Aspart) 100 unit/mL] 0 unit SUBCUT ASDIR PRN [History] Insulin Detemir [Levemir Insulin 100 units/mL] 14 unit SUBCUT QPM 11/30/16 [ History] Lisinopril [Prinivil 10 mg Tablet] 10 mg PO DAILY 11/30/16 [History] Omeprazole 20 mg PO DAILY 11/30/16 [History] Oxybutynin Chloride [Ditropan Xl] 10 mg PO QAM 11/30/16 [History] Topiramate [Topamax] 50 mg PO Q12 11/30/16 [History] Trazodone HCl [Desyrel] 150 mg PO QHS 11/30/16 [History] Triamcinolone Acetonide [Aristocort 0.1% Cream] 1 applic TOP BID 11/30/16 [ History] Past Medical History - General Information source: Emergency Med Personnel, [facility] Records, Outside Facility Records - Social History Smoking Status: Unknown if Ever Smoked Family History: Reviewed & Not Pertinent - Past Medical History Cardiac Medical History: Reports: Hx Hypercholesterolemia, Hx Hypertension - 6 years- takes meds Pulmonary Medical History: Reports: Hx Sleep Apnea - uses CPAP Neurological Medical History: Reports: Hx Migraine Endocrine Medical History: Reports: Hx Diabetes Mellitus Type 2 Renal/ Medical History: Reports: Hx Kidney Stones Malignancy Medical History: GI Medical History: Reports: Hx Gastroesophageal Reflux Disease - takes meds, Hx Hiatal Hernia Musculoskeltal Medical History: Reports Hx Arthritis Psychiatric Medical History: Reports: Hx Depression Traumatic Medical History: Reports: Hx Fractures - closed, displaced fracture at right patella Infectious Medical History: Past Surgical History: Reports: Hx Section, Hx Cholecystectomy, Hx Orthopedic Surgery - bilat knee replacement, Hx Tubal Ligation - Immunizations Immunizations up to date: Yes Hx Diphtheria, Pertussis, Tetanus Vaccination: Yes Hx Pneumococcal Vaccination: 07/07/15 <DAT GRAHAM - Last Filed: 11/30/16 10:14> Review of Systems - Review of Systems -: Yes ROS unobtainable due to patient's medical condition <DAT RGAHAM - Last Filed: 11/30/16 10:14> Physical Exam - General General appearance: Unresponsive, Other - laying supine with eyes closed, no external signs of trauma - HEENT Head: Normocephalic, Atraumatic, Other - no external signs of trauma Eyes: Normal Extraocular movements intact: Yes Pupils: PERRL Neck: Normal, Other - no nuchal rigidity - Respiratory Breath sounds: Other - coarse breath sounds bilaterally - Cardiovascular Rhythm: Regular Heart sounds: Normal auscultation Murmur: No - Abdominal Distension: No distension - Back Back: Normal - Extremities General upper extremity: Other - Flaccid upper extremity General lower extremity: Other - moving lower extremities bilaterally but not to command - Neurological Cognition: Other - unresponsive - Skin Skin Temperature: Warm Skin Moisture: Dry Skin Color: Normal <DAT GRAHAM - Last Filed: 11/30/16 10:14> <OSMANVENITA - Last Filed: 12/01/16 13:16> - Vital signs Vitals: Resp Pulse Ox 17 97 11/30/16 06:47 11/30/16 06:47 - Neurological Notes: GCS=9 (DAT GRAHAM) Course - Laboratory Result Diagrams: 11/30/16 07:00 11/30/16 07:00 - Consults Dr. Sondra Gracia Time consulted: 10:09 Consulted provider: will see as inpatient <DAT GRAHAM - Last Filed: 11/30/16 10:14> - Laboratory Result Diagrams: 12/01/16 05:06 12/01/16 05:06 <VENITA BREWER - Last Filed: 12/01/16 13:16> - Re-evaluation Re-evalutation: 11/30/16 09:55 Patient presents the emergency department from the [facility] with altered mental status and hypoglycemia. Patient is a hospice patient DNR [facility]. She was given insulin last night when he went to check on her this morning she was unresponsive and her Accu-Chek was 37. They gave her an amp of D50. EMS states when they got there her blood pressure was in the 70s they gave her a fluid bolus on arrival his blood pressure is 99/53. Patient was discharged on 815 with UTI and dehydration. Patient has an extensive allergy list and very difficult to get antibiotics. She has a listing of penicillin causing a anaphylactic shock in the past. At the bedside during my examination blood pressure is 106/59 heart rate is 82 O2 sat is 96% on room air respiratory rate is 16. She is open her eyes but she does not follow commands. Her pupils do react light bilaterally is no external signs of trauma to the head no nuchal rigidity heart rate and rhythm is regular without murmur gallop rub lungs are clear abdomen is soft. She was moving her lower extremities without command initially upper extremities were flaccid on initial examination. Patient has CT of the head which was negative for acute pathology. She was found to be hypothermic at 96.5 sepsis protocol ensued. Initially went to order the antibiotics and she is pretty much allergic to everything. On reassessment she is more awake and alert attempting to do a fluid challenge at the bedside to see if she can take oral Macrobid. Family reports trouble with hypoglycemic before she went into this facility. Patient has decreased appetite but is normally alert and oriented 3. Patient was discharged from the hospital on 815 for UTI and dehydration after a course of 10 days of Invanz for Klebsiella pneumonia which grew out on her urine culture secondary to her multiple allergies. 11/30/16 10:03 11/30/16 10:12 Spoke with the hospitalist and a TRE GRACIA wants the patient inpatient medical floor (VENITA BREWER) - Vital Signs Vital signs: Temp Pulse Resp BP Pulse Ox 98.4 F 83 18 118/52 L 97 12/01/16 07:50 12/01/16 07:50 12/01/16 07:50 12/01/16 07:50 12/01/16 07:50 - Laboratory Laboratory results interpreted by me: 11/30/16 11/30/16 11/30/16 06:50 07:00 07:00 RBC 3.06 L Hgb 8.7 L Hct 26.9 L RDW 18.0 H Seg Neutrophils % 83.2 H Lymphocytes % 11.4 L VBG pH Potassium 3.4 L Chloride 109 H Carbon Dioxide 19 L BUN 24 H Est GFR ( Amer) 53 L Est GFR (Non-Af Amer) 44 L POC Glucose 119 H Ur Leukocyte Esterase 11/30/16 11/30/16 07:37 08:15 RBC Hgb Hct RDW Seg Neutrophils % Lymphocytes % VBG pH 7.22 L Potassium Chloride Carbon Dioxide BUN Est GFR ( Amer) Est GFR (Non-Af Amer) POC Glucose Ur Leukocyte Esterase LARGE H - EKG Interpretation by Me Additional EKG results interpreted by me: 11/30/16 09:54 EKG sinus rhythm at 86 bpm left axis deviation no acute ST segment elevation or depression (VENITA BREWER) - Consults Dr. Sondra Gracia Reason for consultation: 11/30/16 10:09 Discussed patient. Patient is accepted for admission. (DAT GRAHAM) Critical Care Note - Critical Care Note Total time excluding time spent on procedures (mins): 60 <VENITA BREWER - Last Filed: 12/01/16 13:16> Discharge <DAT GRAHAM - Last Filed: 11/30/16 10:14> - Discharge Admitting Provider: Hospitalist Unit Admitted: Medical Floor <VENITA BREWER - Last Filed: 12/01/16 13:16> - Discharge Clinical Impression: Acute UTI, Sepsis secondary to UTI, profound hypoglycemia Altered mental status Qualifiers: Altered mental status type: transient alteration of awareness Qualified Code(s) : R40.4 - Transient alteration of awareness Condition: Stable Disposition: ADMITTED INPATIENT Scribe Attestation: 11/30/16 10:11 I personally performed the services described in the documentation reviewed the documentation recorded by my scribe in my presence and it accurately and completely records my words and actions (VENITA BREWER) Scribe Documentation - Scribe Written by Jayda:: jayda Blue, 11/30/2016, 0926 acting as scribe for :: Osman <DAT GRAHAM - Last Filed: 11/30/16 10:14>
[2016-11-30 07:31] LABS: ANION GAP 11 (5-19); BLOOD UREA NITROGEN 24 mg/dL (7-20); CARBON DIOXIDE 19 mmol/L (22-30); CHLORIDE 109 mmol/L (98-107); CREATININE RESULT 1.23 mg/dL (0.52-1.25); GLUCOSE 109 mg/dL (75-110); POTASSIUM 3.4 mmol/L (3.6-5.0); SODIUM 139.2 mmol/L (137-145)
[2016-11-30 07:39] LABS: PROTHROMBIN TIME 13.7 SEC (11.4-15.4)
[2016-11-30 07:59] LABS: APPEARANCE,URINE SLIGHTLY-CLOUDY; BILIRUBIN,URINE NEGATIVE (NEGATIVE); GLUCOSE, URINE NEGATIVE (NEGATIVE); KETONES,URINE NEGATIVE (NEGATIVE); LEUKOCYTE ESTERASE,URINE LARGE (NEGATIVE); NITRITE,URINE NEGATIVE (NEGATIVE); PROTEIN,URINE NEGATIVE (NEGATIVE); URINE SPECIFIC GRAVITY 1.008; UROBILINOGEN,URINE NEGATIVE mg/dL (<2.0)
[2016-11-30 08:38] LABS: VENOUS BLOOD BASE EXCESS -5.3 mmol/L; VENOUS BLOOD HCO3 22.9 mmol/L (20-32); VENOUS BLOOD PCO2 56.8 mmHg (35-63); VENOUS BLOOD PH 7.22 (7.30-7.42)
--- NOTE | 2016-11-30 08:38 | RADIOLOGY REPORT (SQ) ---
EXAM DESCRIPTION: CHEST SINGLE VIEW COMPLETED DATE/TIME: 11/30/2016 8:04 am REASON FOR STUDY: ams COMPARISON: 11/10/2016 NUMBER OF VIEWS: One view. TECHNIQUE: Single frontal radiographic view of the chest acquired. LIMITATIONS: None. FINDINGS: LUNGS AND PLEURA: No opacities, masses or pneumothorax. No pleural effusion. Attenuated bl ood vessels and flattened dean-diaphragms. MEDIASTINUM AND HILAR STRUCTURES: No masses. Contour normal. HEART AND VASCULAR STRUCTURES: Heart normal in size. Normal vasculature. BONES: No acute findings. HARDWARE: None in the chest. OTHER: No other significant finding. IMPRESSION: COPD. NO ACUTE RADIOGRAPHIC FINDING IN THE CHEST. TECHNICAL DOCUMENTATION: JOB ID: [id number]- All Rights Reserved
[2016-11-30] MEDS ORDERED: NITROFURANTOIN MONOHYD/M-CRYST 100 MG CAPSULE PO ONE (09:38)
--- NOTE | 2016-11-30 09:57 | RADIOLOGY REPORT (SQ) ---
EXAM DESCRIPTION: CT HEAD WITHOUT COMPLETED DATE/TIME: 11/30/2016 9:41 am REASON FOR STUDY: ams COMPARISON: 11/10/2016 TECHNIQUE: Axial images acquired through the brain without intravenous contrast. Images reviewed wi th bone, brain and subdural windows. Images stored on PACS. All CT scanners at this facility use dose modulation, iterative reconstruction, and/or weight based d osing when appropriate to reduce radiation dose to as low as reasonably achievable (ALARA). [facility]: Dose Right [facility]: CareDose [facility]: Dose Right [facility]: Teradose 4D [facility]: Smart [employer] RADIATION DOSE: Up-to-date CT equipment and radiation dose reduction techniques were employed. CTDIv ol: 59.0 mGy. DLP: 1680 mGy-cm. mGy. LIMITATIONS: Patient motion. FINDINGS: VENTRICLES: Prominent. CEREBRUM: No masses. No hemorrhage. No midline shift. Areas of low density in the white matter mos t likely due to chronic micro-vascular ischemic change. No evidence for acute infarction. CEREBELLUM: No masses. No hemorrhage. No alteration of density. No evidence for acute infarction. EXTRAAXIAL SPACES: Mild age-related involutional change. No fluid collections. No masses. ORBITS AND GLOBE: No intra- or extraconal masses. Normal contour of globe without masses. CALVARIUM: No fracture. PARANASAL SINUSES: No fluid or mucosal thickening. SOFT TISSUES: No mass or hematoma. OTHER: No other significant finding. IMPRESSION: No acute abnormality in the brain. TECHNICAL DOCUMENTATION: JOB ID: [id number] Quality ID # [id number]: Final reports with documentation of one or more dose reduction techniques (e.g., Au tomated exposure control, adjustment of the mA and/or kV according to patient size, use of iterative reconstruction technique) 2010 [email or web address]- All Rights Reserved
[2016-11-30] MEDS ORDERED: ONDANSETRON HCL INJ/PF 4 MG/2 ML SDV IV PRN (10:35)
[2016-11-30] MEDS ORDERED: ERTAPENEM SODIUM INJ 1 GM VIAL IV ONE (10:45)
[2016-11-30] MEDS ORDERED: NORMAL SALINE 1000 ML 1,000 ML IV PRN (10:46)
--- NOTE | 2016-11-30 10:48 | PDOC H&P ---
History of Present Illness Admission Date/PCP: 11/30/16 10:21 Patient complains of: Confusion History of Present Illness: FANTASMA WALDEN is a 66 year old female presented to the ED after she was found unresponsive. Patient family states as she was alert and oriented 3 prior to going to bed. Prior to going to bed she was given insulin. When she presented to the ED patient blood glucose was in the 30s. Patient glucose is now improved. Patient is not very responsive or interactive. Patient was also hypotensive. Patient was recently discharged from the hospital on advance for the UTI. She completed 10 days of antibiotics. She would have completed her course on yesterday 11/29/2016. Chest x-ray was negative, CT head was negative however UA did show leukocyte esterase. There is no family at bedside and patient is not able to give any history. Patient is DNR comfort measures uncertain as to why she was brought to the ED. ED call hospitalist to admit patient and further evaluate her for her acute metabolic encephalopathy. Past Medical History Cardiac Medical History: Reports: Hyperlipidema, Hypertension - 6 years- takes meds Denies: Atrial Fibrillation, Congestive Heart Failure, Coronary Artery Disease, Myocardial Infarction, Peripheral Vascular Disease, Pulmonary Embolism , Heart Murmur Pulmonary Medical History: Reports: Sleep Apnea - uses CPAP Denies: Asthma, Bronchitis, Chronic Obstructive Pulmonary Disease (COPD), Pneumonia, Respiratory Failure, Tuberculosis Neurological Medical History: Reports: Migraine Denies: Seizures Endocrine Medical History: Reports: Diabetes Mellitus Type 2 Denies: Hyperthyroidism, Hypothyroidism Renal/ Medical History: Denies: End Stage Renal Disease Malignancy Medical History: Denies: Lung Cancer GI Medical History: Reports: Gastroesophageal Reflux Disease - takes meds, Hiatal Hernia Denies: Crohn's Disease Musculoskeltal Medical History: Reports: Arthritis Denies: Fibromyalgia Psychiatric Medical History: Reports: Depression Denies: Bipolar Disorder, Post Traumatic Stress Disorder Hematology: Infectious Medical History: Past Surgical History Past Surgical History: Reports: Section, Cholecystectomy, Orthopedic Surgery - bilat knee replacement, Tubal Ligation Denies: Amputation, Appendectomy, Colostomy, Coronary Artery Bypass Graft, Gastric Bypass Surgery, Herniorrhaphy, Hysterectomy, Mastectomy, Pacemaker, Tonsillectomy Social History Smoking Status: Unknown if Ever Smoked Frequency of Alcohol Use: None Hx Recreational Drug Use: No Drugs: None Hx Prescription Drug Abuse: No - Advance Directive Resuscitation Status: Comfort Measures Only Family History Family History: Reviewed & Not Pertinent, Other - Patient is unable to give any history due to her mentation Parental Family History Reviewed: No Children Family History Reviewed: No Sibling(s) Family History Reviewed.: No - As unable to give any history Medication/Allergy Home Medications: Alprazolam [Xanax] 1 mg PO Q12 11/30/16 Bupropion HCl [Wellbutrin Xl 300mg 24hr Tablet] 300 mg PO DAILY 11/30/16 Escitalopram Oxalate [Lexapro] 40 mg PO DAILY 11/30/16 Hydroxyzine HCl [Atarax 10 mg Tablet] 10 mg PO Q8 11/30/16 Insulin Aspart [Novolog Insulin (Aspart) 100 unit/mL] 0 unit SUBCUT ASDIR PRN Insulin Detemir [Levemir Insulin 100 units/mL] 14 unit SUBCUT QPM 11/30/16 Lisinopril [Prinivil 10 mg Tablet] 10 mg PO DAILY 11/30/16 Omeprazole 20 mg PO DAILY 11/30/16 Oxybutynin Chloride [Ditropan Xl] 10 mg PO QAM 11/30/16 Topiramate [Topamax] 50 mg PO Q12 11/30/16 Trazodone HCl [Desyrel] 150 mg PO QHS 11/30/16 Triamcinolone Acetonide [Aristocort 0.1% Cream] 1 applic TOP BID 11/30/16 Allergies/Adverse Reactions: ciprofloxacin [From Cipro] Allergy (Verified 10/31/16 18:36) Rash/Hives meperidine [Meperidine] Allergy (Verified 10/31/16 18:36) Rash/Hives methadone [Methadone] Allergy (Verified 10/31/16 18:36) Rash/Hives Penicillins Allergy (Verified 10/31/16 18:36) Anaphylaxis, Rash Quinolones Allergy (Verified 11/30/16 07:06) Sulfa (Sulfonamide Antibiotics) Allergy (Verified 10/31/16 18:36) Rash/Hives Review of Systems ROS unobtainable: Due to mental status Physical Exam Vital Signs: Temp Pulse Resp BP Pulse Ox 15 106/59 L 98 11/30/16 07:01 11/30/16 07:01 11/30/16 07:01 General appearance: PRESENT: no acute distress Head exam: PRESENT: normocephalic Eye exam: PRESENT: PERRLA, other - Close Respiratory exam: PRESENT: clear to auscultation douglas Cardiovascular exam: PRESENT: RRR GI/Abdominal exam: PRESENT: normal bowel sounds, soft, other - Nontender Rectal exam: PRESENT: deferred Extremities exam: PRESENT: other - No edema Neurological exam: PRESENT: other - Patient not responsive however will spontaneously move her extremities Skin exam: PRESENT: warm Results Impressions: Chest X-Ray 11/30/16 07:02 IMPRESSION: COPD. NO ACUTE RADIOGRAPHIC FINDING IN THE CHEST. Head CT 11/30/16 07:03 IMPRESSION: No acute abnormality in the brain. Assessment & Plan - Diagnosis (1) Acute metabolic encephalopathy due to hypoglycemia Is this a current diagnosis for this admission?: Yes Plan: Most likely due to hypoglycemia. Concerned as to why patient is on antihypoglycemic medication as patient last hemoglobin A1c was 5.1 August of this year. As patient is n.p.o. and was taken glipizide and insulin at home we will continue patient on fluids with glucose to prevent any further hypoglycemia. Patient started moving more however was still not responsive. Will continue to check blood glucoses. Also check an A1c. We will do neuro checks. No CT head was negative. (2) Hypotension Plan: Hypertension possibly due to volume depletion. Uncertain to how much patient has been eating. There is a small bump in her creatinine from 0.72-1.23 will continue gentle hydration and monitor. This could also be playing a part in her change in mentation. She was given 2 normal saline fluid boluses. Patient is now on D5 normal saline with potassium. (3) Pyuria Plan: Patient did receive 10 days of Invanz for an infection and should have completed treatment on 11/29/2016. This may be sterile pyuria. Will await for urine culture. (4) Hypokalemia Plan: Potassium is mildly low at 3.4. Will give replacement and monitor. - Time Time Spent: 30 to 50 Minutes Anticipated discharge: Home
[2016-11-30 11:42] LABS: URINE BARBITURATES SCREEN NEGATIVE; URINE METHADONE SCREEN NEGATIVE; URINE OPIATES LOW NEGATIVE; URINE PHENCYCLIDINE SCREEN NEGATIVE
[2016-11-30] MEDS: POTASSI CL 20 MEQ/D5NS 1L 20 MEQ/1,000 ML RTUINJ IV PRN ×2 (14:13→23:39)
--- NOTE | 2016-11-30 21:01 | EKG REPORT ---
SEVERITY:- ABNORMAL ECG - SINUS RHYTHM BORDERLINE LEFT AXIS DEVIATION NONSPECIFIC T ABNORMALITIES, LATERAL LEADS : Confirmed by: Sobeida Knox 30-Nov-2016 21:01:08
[2016-12-01 05:24] LABS: ABSOLUTE BASOPHILS # (AUTO) 0.1 10^3/uL (0.0-0.2); ABSOLUTE LYMPHOCYTES (AUTO) 1.2 10^3/uL (0.5-4.7); ABSOLUTE MONOCYTES (AUTO) 0.9 10^3/uL (0.1-1.4); ABSOLUTE NEUT (AUTO) 9.2 10^3/uL (1.7-8.2); BASOPHILS % (AUTO) 0.5 % (0-2); EOSINOPHILS % (AUTO) 0.1 % (0-6); HEMATOCRIT 27.1 % (36.0-47.0); HEMOGLOBIN 8.7 g/dL (12.0-15.5); LYMPHOCYTES % (AUTO) 10.5 % (13-45); MEAN CORPUSCULAR HEMOGLOBIN 28.2 pg (27.0-33.4); MEAN CORPUSCULAR HGB CONC 32.2 g/dL (32.0-36.0); MEAN CORPUSCULAR VOLUME 88 fl (80-97); MONOCYTES % (AUTO) 7.7 % (3-13); SEGMENTED NEUTROPHILS % (AUTO) 81.2 % (42-78); WHITE BLOOD COUNT 11.3 10^3/uL (4.0-10.5)
[2016-12-01 05:37] LABS: ALANINE AMINOTRANSFERASE 14 U/L (9-52); ALBUMIN 2.3 g/dL (3.5-5.0); ALKALINE PHOSPHATASE 60 U/L (38-126); ANION GAP 8 (5-19); ASPARTATE AMINO TRANSFERASE 14 U/L (14-36); BILIRUBIN,DIRECT 0.3 mg/dL (0.0-0.4); BILIRUBIN,TOTAL 0.3 mg/dL (0.2-1.3); BLOOD UREA NITROGEN 14 mg/dL (7-20); CALCIUM 8.4 mg/dL (8.4-10.2); CARBON DIOXIDE 21 mmol/L (22-30); CHLORIDE 115 mmol/L (98-107); CREATININE RESULT 0.91 mg/dL (0.52-1.25); GLUCOSE 316 mg/dL (75-110); PHOSPHORUS 2.7 mg/dL (2.5-4.5); POTASSIUM 3.5 mmol/L (3.6-5.0); SODIUM 143.8 mmol/L (137-145)
[2016-12-01] MEDS ORDERED: GLUCAGON,HUMAN RECOMB 1 MG INJ IM PRN (05:53)
[2016-12-01] MEDS ORDERED: DEXTROSE 40% GEL 15 GM TUBE PO PRN ×2 (05:53)
[2016-12-01] MEDS ORDERED: DEXTROSE 50%-WATER 25 GM/50 ML DISP.SYRIN IV PRN ×2 (05:53)
[2016-12-01 06:08] LABS: THYROID STIMULATING HORMONE 1.93 uIU/mL (0.47-4.68)
[2016-12-01] MEDS ORDERED: POTASSI CL 20 MEQ/50 ML RIDER 20 MEQ/50 ML RTUPB IV ONE ×2 (06:14→06:15)
[2016-12-01] MEDS: MAGNESIUM SULFATE/D5W 1 GM/100 ML RTUPB IV SCH ×3 (06:17→09:41)
[2016-12-01] MEDS: INSULIN LISPRO 100 UNIT/ML 3 ML VIAL SUBCUT PRN (06:58)
--- NOTE | 2016-12-01 11:38 | PDOC PROGRESS REPORT ---
Subjective Progress Note for:: 12/01/16 Subjective:: Patient lying in bed still unresponsive. Per nurse she has a better gagger plantarflexed today. Patient does withdraw her lower extremities whenever her bottom of her feet are stroked. However her upper body is flaccid. Physical Exam Vital Signs: Temp Pulse Resp BP Pulse Ox 98.4 F 83 18 118/52 L 97 12/01/16 07:50 12/01/16 07:50 12/01/16 07:50 12/01/16 07:50 12/01/16 07:50 Intake & Output 11/30/16 12/01/16 12/02/16 06:59 06:59 06:59 Intake Total 1862 Output Total 2125 Balance -263 Weight 74.9 kg General appearance: PRESENT: no acute distress Head exam: PRESENT: normocephalic Eye exam: PRESENT: PERRLA Respiratory exam: PRESENT: clear to auscultation douglas Cardiovascular exam: PRESENT: RRR GI/Abdominal exam: PRESENT: soft Rectal exam: PRESENT: deferred Neurological exam: PRESENT: other - Unresponsive. Will withdrawal with stroking of the sole of the feet however of her extremities are flaccid. Results Laboratory Results: 12/01/16 05:06 12/01/16 05:06 12/01/16 12/01/16 12/01/16 05:06 05:06 05:06 WBC 11.3 H RBC 3.10 L Hgb 8.7 L Hct 27.1 L MCV 88 MCH 28.2 MCHC 32.2 RDW 18.0 H Plt Count 388 Seg Neutrophils % 81.2 H Lymphocytes % 10.5 L Monocytes % 7.7 Eosinophils % 0.1 Basophils % 0.5 Absolute Neutrophils 9.2 H Absolute Lymphocytes 1.2 Absolute Monocytes 0.9 Absolute Eosinophils 0.0 Absolute Basophils 0.1 Sodium 143.8 Potassium 3.5 L Chloride 115 H Carbon Dioxide 21 L Anion Gap 8 BUN 14 Creatinine 0.91 Est GFR ( Amer) > 60 Est GFR (Non-Af Amer) > 60 Glucose 316 H Calcium 8.4 Phosphorus 2.7 Magnesium 1.0 L* Total Bilirubin 0.3 AST 14 ALT 14 Alkaline Phosphatase 60 Total Protein 5.0 L Albumin 2.3 L TSH 1.93 Free T4 1.05 Impressions: Chest X-Ray 11/30/16 07:02 IMPRESSION: COPD. NO ACUTE RADIOGRAPHIC FINDING IN THE CHEST. Head CT 11/30/16 07:03 IMPRESSION: No acute abnormality in the brain. Assessment & Plan - Diagnosis (1) Acute metabolic encephalopathy due to hypoglycemia Is this a current diagnosis for this admission?: Yes Plan: Most likely due to hypoglycemia and possible recurrent UTI. Recent mentation is still altered. Her glucoses are normal but will continue to monitor. (2) Hypotension Plan: Attention is now resolved. Patient continued on normal saline at 75 cc an hour. Will continue to monitor blood pressure. (3) Hypokalemia Plan: Patient given more replacement this morning. Will monitor. (4) UTI (urinary tract infection) Qualifiers: Urinary tract infection type: site unspecified Hematuria presence: without hematuria Qualified Code(s): N39.0 - Urinary tract infection, site not specified Is this a current diagnosis for this admission?: Yes Plan: Urine culture growing gram-negative rods. During the patient may be colonized. However due to change in mentation will treat patient with a short course of antibiotics as patient just completed 10 days of Invanz. (5) Hypomagnesemia Is this a current diagnosis for this admission?: No Plan: She magnesium level was 1. Patient was given replacement. Will follow up and give additional replacement if needed. - Time Time Spent with patient: Less than 15 minutes Anticipated discharge: Other - Will call [facility] and ask why patient was sent if she is DNR on hospice.
[2016-12-01] MEDS: ERTAPENEM SODIUM 1 GM in NORMAL SALINE 50 ML IV SCH (13:14)
[2016-12-01] MEDS: NORMAL SALINE 1000 ML 1,000 ML IV PRN (22:24)
[2016-12-02] MEDS: INSULIN LISPRO 100 UNIT/ML 3 ML VIAL SUBCUT PRN (00:03)
[2016-12-02 05:07] LABS: ANION GAP 10 (5-19); BLOOD UREA NITROGEN 12 mg/dL (7-20); CALCIUM 8.4 mg/dL (8.4-10.2); CARBON DIOXIDE 21 mmol/L (22-30); CHLORIDE 117 mmol/L (98-107); CREATININE RESULT 0.88 mg/dL (0.52-1.25); GLUCOSE 163 mg/dL (75-110); MAGNESIUM 1.8 mg/dL (1.6-2.3); POTASSIUM 3.3 mmol/L (3.6-5.0); SODIUM 147.5 mmol/L (137-145)
[2016-12-02] MEDS: ERTAPENEM SODIUM 1 GM in NORMAL SALINE 50 ML IV SCH (11:42)
[2016-12-02] MEDS: NORMAL SALINE 1000 ML 1,000 ML IV PRN (11:43)
--- NOTE | 2016-12-02 15:23 | PDOC DISCHARGE SUMMARY ---
General - Admit/Disc Date/PCP Admission Date/Primary Care Provider: 11/30/16 10:35 Discharge Date: 12/02/16 - Patient is a DNR - Discharge Diagnosis (1) Acute metabolic encephalopathy due to hypoglycemia Is this a current diagnosis for this admission?: Yes Summary: She presented with acute metabolic encephalopathy. However on further discussion with the residential patient clinical condition had been deteriorating quite rapidly. Patient has since then been made DNR and comfort care. Patient was sent to the hospital for evaluation after she became hypoglycemic when she was given insulin to correct her hyper glycemia. Patient blood glucoses have been greater than 100 after she was given D5 normal saline. Patient hemoglobin A1c 6.6 and being that she is now DNR with comfort measures may not require any further correction. All antihypoglycemics have been discontinued. Despite correction of her hypoglycemia and treatment of her UTI patient still remains encephalopathic. This is most likely due to her rapid deterioration. Please note the patient had a CT scan done of her brain which was negative. (2) Hypotension Summary: Patient hypertension most likely due to dehydration as patient has not been eating very much. Patient received aggressive fluid resuscitation while in the hospital with normal saline and with D5 normal saline. Patient blood pressures have been stable in the 100s. (3) Hypokalemia Summary: She received replacement and her potassium is now normal. This is most likely due to poor p.o. intake. (4) UTI (urinary tract infection) Is this a current diagnosis for this admission?: Yes Summary: Patient has UTI with E. coli. Patient has had recurrent UTIs. Patient has received 3 doses of ertapenem which should be sufficient enough to treat this UTI. (5) Hypomagnesemia Is this a current diagnosis for this admission?: No Summary: Patient was given replacement. This is most likely due to poor p.o. intake. - Additional Information Resuscitation Status: Comfort Measures Only Discharge Diet: As Tolerated Discharge Activity: Other - Patient currently bed bound Home Medications: Triamcinolone Acetonide [Aristocort 0.1% Cream] 1 applic TOP BID 11/30/16 History of Present Illness History of Present Illness: FANTASAM WALDEN is a 66 year old female presented to the ED after she was found unresponsive. Patient family states as she was alert and oriented 3 prior to going to bed. Prior to going to bed she was given insulin. When she presented to the ED patient blood glucose was in the 30s. Patient glucose is now improved. Patient is not very responsive or interactive. Patient was also hypotensive. Patient was recently discharged from the hospital on advance for the UTI. She completed 10 days of antibiotics. She would have completed her course on yesterday 11/29/2016. Chest x-ray was negative, CT head was negative however UA did show leukocyte esterase. There is no family at bedside and patient is not able to give any history. Patient is DNR comfort measures uncertain as to why she was brought to the ED. ED call hospitalist to admit patient and further evaluate her for her acute metabolic encephalopathy. Hospital Course Hospital Course: Patient was admitted from [facility] for acute metabolic encephalopathy. Patient was given insulin the night before for hypoglycemia and blood glucoses dropped down to the 30s. Patient blood glucose was corrected with D5 normal saline she started getting blood sugars into the 300s. Once blood sugar started to become patient was switched to normal saline at 75 cc an hour. Patient hemoglobin A1c was 6.6 recommended the patient no longer taking any anti-hyperglycemics especially with her being DNR with comfort measures. CT scan was done on admission of the brain which was negative for any acute findings. Note that patient mentation has not improved despite correcting any underlying issues. Patient still is encephalopathic most likely due to her declining condition. It made known to me that patient was made DNR and comfort measures due for rapid deterioration Patient was recently discharged from the hospital with a UTI on ertapenem. Patient has completed 10 days of ertapenem. Patient did present again with greater than 100,000 colonies of E. coli. Patient received 3 doses of ertapenem. Patient also developed some mild hypokalemia and hypomagnesemia. Both of these were replaced intravenously as patient is not taking any oral meds medications at this time. Acute renal failure patient did have a bump in her creatinine of 1.23 now down to 0.88 after receiving several days of hydration. This is most likely due to patient having poor oral intake. Physical Exam Vital Signs: Temp Pulse Resp BP Pulse Ox 98.5 F 80 19 123/52 L 93 12/02/16 07:56 12/02/16 07:56 12/02/16 07:56 12/02/16 07:56 12/02/16 07:56 Intake & Output 12/01/16 12/02/1617 06:59 06:59 06:59 Intake Total 1862 2282 0 Output Total 2125 1400 700 Balance -263 882 -700 Weight 74.9 kg 76.8 kg General appearance: PRESENT: no acute distress, other - Frail Head exam: PRESENT: normocephalic Eye exam: PRESENT: PERRLA, other Respiratory exam: PRESENT: clear to auscultation douglas Cardiovascular exam: PRESENT: RRR GI/Abdominal exam: PRESENT: normal bowel sounds, soft. ABSENT: tenderness Rectal exam: PRESENT: deferred Gentrourinary exam: PRESENT: indwelling catheter Extremities exam: ABSENT: pedal edema Neurological exam: PRESENT: other - Appears to be in a deep sleep. Patient does not respond to her name. Up going toes with stroking of the bottom of the feet. Upper extremities are flaccid. Skin exam: PRESENT: other - loose skin especially of the abdomen consist with recent rapid weight loss. Results Laboratory Results: 12/01/16 05:06 12/02/16 04:13 12/02/16 04:13 Sodium 147.5 H Potassium 3.3 L Chloride 117 H Carbon Dioxide 21 L Anion Gap 10 BUN 12 Creatinine 0.88 Est GFR ( Amer) > 60 Est GFR (Non-Af Amer) > 60 Glucose 163 H Calcium 8.4 Magnesium 1.8 Impressions: Chest X-Ray 11/30/16 07:02 IMPRESSION: COPD. NO ACUTE RADIOGRAPHIC FINDING IN THE CHEST. Head CT 11/30/16 07:03 IMPRESSION: No acute abnormality in the brain. Plan Time Spent: Less than 30 Minutes - Plan to discharged back to residential on the DNR comfort measures. And at this time is unresponsive however per the nursing staff there that this has been her baseline at the residential.
[2016-12-02 16:08] VITALS: BP 124/51
== END 2016-12-02 19:30 | disposition short-term general hospital (02) | DRG 871 ==
LOC: ER 06:42 → UNDOADMIN 10:21 → EH 10:21 → 3S 10:35 → 5 12:30 → EH 12:30 → 3S 15:20 → 5 15:20
PROVIDERS: ADMIT Pediatrics; ATTEND Pediatrics
DX: A41.9 Sepsis, unspecified organism (principal); G93.41 Metabolic encephalopathy; N39.0 Urinary tract infection, site not specified; Z66 Do not resuscitate; E16.2 Hypoglycemia, unspecified; E87.6 Hypokalemia; B96.20 Unspecified Escherichia coli [E. coli] as the cause of diseases classified elsewhere
CPT/HCPCS: 36415; 70450; 71010; 80048; 80053; 80307; 81001; 82803; 82962; 83036; 83605; 83735; 84100; 84439; 84443; 85025; 85610; 87040; 87086; 87088; 87186; 93005; 93010; 96365; 99285; J0456; J1335; J1815; J3475; J3480; J7030

== ENCOUNTER 2016-12-04 18:22 | Observation (INO) | payer MEDICARE, MEDICAID ==
[2016-12-04] MEDS ORDERED: NORMAL SALINE 1000 ML 1,000 ML IV ONE (18:24)
[2016-12-04] MEDS ORDERED: CEFEPIME 2 GM/D5W RTU 2 GM/50 ML RTUPB IV ONE (18:42)
[2016-12-04] MEDS ORDERED: VANCOMYCIN HCL INJ 1000 MG VIAL ONE (18:42)
[2016-12-04] MEDS ORDERED: RINGERS SOLUTION,LACTATED 2,000 ML IV ONE (18:51)
[2016-12-04 18:57] LABS: VENOUS BLOOD BASE EXCESS -7.6 mmol/L; VENOUS BLOOD HCO3 19.6 mmol/L (20-32); VENOUS BLOOD PCO2 46.9 mmHg (35-63); VENOUS BLOOD PH 7.24 (7.30-7.42)
--- NOTE | 2016-12-04 18:57 | ER Document Report ---
ED General - General Stated Complaint: FEVER Time Seen by Provider: 12/04/16 18:27 Information source: Emergency Med Personnel Cannot obtain history due to: Unstable vital signs, Altered mental status Notes: Patient is a 66-year-old female who presents by EMS from [facility] with concerns of decreased urinary output, altered mental status, and fever. No additional history can be obtained at time of presentation as patient is obtunded, GCS of 3, does not answer any questions. EMS states the only thing that they noticed patient is apparently a DNR, DNI, on comfort measures but family at the facility had wanted additional workup and management of the patient. TRAVEL OUTSIDE OF THE [place] IN LAST 30 DAYS: No - Related Data Allergies/Adverse Reactions: ciprofloxacin [From Cipro] Allergy (Verified 12/04/16 19:18) Rash/Hives meperidine [Meperidine] Allergy (Verified 12/04/16 19:18) Rash/Hives methadone [Methadone] Allergy (Verified 12/04/16 19:18) Rash/Hives Penicillins Allergy (Verified 12/04/16 19:18) Anaphylaxis, Rash Quinolones Allergy (Verified 12/04/16 19:18) Sulfa (Sulfonamide Antibiotics) Allergy (Verified 12/04/16 19:18) Rash/Hives Past Medical History - General Information source: Emergency Med Personnel Cannot obtain history due to: Unstable vital signs, Altered mental status - Social History Smoking Status: Unknown if Ever Smoked Lives with: [facility] Family History: Reviewed & Not Pertinent, Other - Patient is unable to give any history due to her mentation - Past Medical History Cardiac Medical History: Reports: Hx Hypercholesterolemia, Hx Hypertension - 6 years- takes meds Denies: Hx Atrial Fibrillation, Hx Congestive Heart Failure, Hx Coronary Artery Disease, Hx Heart Attack, Hx Peripheral Vascular Disease, Hx Pulmonary Embolism, Hx Heart Murmur Pulmonary Medical History: Reports: Hx Sleep Apnea - uses CPAP Denies: Hx Asthma, Hx Bronchitis, Hx COPD, Hx Pneumonia, Hx Respiratory Failure, Hx Tuberculosis Neurological Medical History: Reports: Hx Migraine. Denies: Hx Cerebrovascular Accident, Hx Seizures Endocrine Medical History: Reports: Hx Diabetes Mellitus Type 2. Denies: Hx Graves' Disease, Hx Hyperthyroidism, Hx Hypothyroidism Renal/ Medical History: Reports: Hx Kidney Stones. Denies: Hx End Stage Renal Disease, Hx Peritoneal Dialysis Malignancy Medical History: Denies: Hx Lung Cancer GI Medical History: Reports: Hx Gastroesophageal Reflux Disease - takes meds, Hx Hiatal Hernia. Denies: Hx Crohn's Disease, Hx Irritable Bowel, Hx Liver Failure, Hx Ulcer Musculoskeltal Medical History: Reports Hx Arthritis, Denies Hx Fibromyalgia, Denies Hx Muscular Dystrophy Psychiatric Medical History: Reports: Hx Depression Denies: Hx Bipolar Disorder, Hx Post Traumatic Stress Disorder, Hx Schizophrenia Traumatic Medical History: Reports: Hx Fractures - closed, displaced fracture at right patella Infectious Medical History: Past Surgical History: Reports: Hx Section, Hx Cholecystectomy, Hx Orthopedic Surgery - bilat knee replacement, Hx Tubal Ligation. Denies: Hx Appendectomy, Hx Bowel Surgery, Hx Colostomy, Hx Coronary Artery Bypass Graft, Hx Gastric Bypass Surgery, Hx Herniorrhaphy, Hx Hysterectomy, Hx Mastectomy, Hx Pacemaker, Hx Tonsillectomy - Immunizations Immunizations up to date: Yes Hx Diphtheria, Pertussis, Tetanus Vaccination: Yes Hx Pneumococcal Vaccination: 07/07/15 Review of Systems - Review of Systems -: Yes ROS unobtainable due to patient's medical condition Physical Exam - Vital signs Vitals: Pulse Ox 98 12/04/16 18:27 Interpretation: Hypotensive, Tachycardic, Tachypneic Notes: PHYSICAL EXAMINATION: GENERAL: Obtunded, GCS of 3. HEAD: Atraumatic, normocephalic. EYES: Pupils equal round and reactive to light, sclera anicteric, conjunctiva are normal. ENT: nares patent, oropharynx clear without exudates. Dry mucous membranes. NECK: supple without lymphadenopathy LUNGS: Shallow respirations bilaterally HEART: Regular tachycardia without murmurs ABDOMEN: Soft, No masses appreciated. EXTREMITIES: 2+ pitting edema in the bilateral lower extremities that is equal and symmetric NEUROLOGICAL: GCS of 3. No response to noxious stimuli in any extremity. Positive gag reflex. Pupillary reflex intact. Corneal reflex intact. PSYCH: Obtunded SKIN: Warm, diaphoretic, febrile to touch Course - Re-evaluation Re-evalutation: 12/04/16 18:53 The patient presents obtunded, GCS of 3, febrile, hypotensive and tachycardic consistent with acute septic shock. The patient's presentation however is unclear. She was discharged from this facility 4 days ago obtunded at that time with documentation that she is a DNR and comfort measure only. However, when she was admitted on 8/15 she was noted to be alert and oriented 3. It is unclear under what circumstances she suddenly became a DNR and comfort measures only but apparently hospice care was engaged sometime after her hospitalization on 11/19. The diagnosis qualifying her for this is also unclear. The family at the bedside, noted to be 2 nieces who they report are her only remaining family , arrive with the patient and state that they do not understand why she was placed on hospice. They also report that the patient typically did not understand most medical decisions, they routinely had to go to her doctor's appointments with her, and this decision was made without any consultation with them and they typically represented her in the past in medical settings. However, patient does have a signed legal document at a time which she apparently had capacity stating comfort measures only. Again, the family who has been with the patient for some time reports they do not understand why she would be comfort measures only and is requesting aggressive therapy for her septic shock and altered mental status. I have engaged legal services as this is obviously a confounding situation. In the interim, I will proceed with IV fluids and IV antibiotics as I feel these are minimally aggressive therapies but will not proceed to intubate the patient at this time. I have explained this to the family at the bedside and informed them that they are not technically legal next of kin and do not have legal authority to make medical decisions for this patient. 12/04/16 19:31 Laboratories demonstrate findings consistent with severe dehydration with associated hyper natremia and acute kidney injury. I have spoken with Guera Beck with legal here at the hospital for clarification. She confirms that if the patient has a DNR with comfort measures only order written and the only family members available at the bedside are not immediate next of kin, they do not have legal authority to overturn this decision and proceeding with any additional therapy would be ill advised. I have also contacted Dr. Orta who is the signing physician for the patient's DNR to better clarify the patient's mental status at time of signing this order. We have also reached out to the hospice services for this patient and are waiting to hear back. 12/04/16 19:54 I have confirmed with Dr. Orta that the patient was of sound mind at time of signing her DNR and comfort measures only orders. He reports that the patient per the hospice staff stated she did not wish to go back to the hospital anymore , was tired of recurrent hospitalizations, and wished to pass peacefully. There was no additional family involved in her decision-making process. There was no concerns at that time that the patient did not understand the decision she was making. I therefore do not have any legal authority to proceed with additional treatment for this patient and will discontinue all non-comfort measures at this time based on patient's legal documentation of this being her wish. 12/04/16 21:[address] Jovany Cleveland and relayed the above information to him and informed regarding comfort care plan. He is in agreement will admit to medical floor. - Vital Signs Vital signs: Temp Pulse Resp BP Pulse Ox 101.0 F H 21 H 92/51 L 96 12/04/16 19:50 12/04/16 20:03 12/04/16 20:03 12/04/16 20:03 - Laboratory Result Diagrams: 12/04/16 18:30 12/04/16 18:30 Laboratory results interpreted by me: 12/04/16 12/04/16 12/04/16 18:30 18:30 18:30 RBC 3.16 L Hgb 9.0 L Hct 27.8 L RDW 17.9 H PT 16.6 H VBG pH VBG HCO3 Sodium 157.8 H Potassium 3.2 L Chloride 126 H Carbon Dioxide 18 L BUN 40 H Creatinine 2.61 H Est GFR ( Amer) 22 L Est GFR (Non-Af Amer) 18 L Glucose 168 H Total Protein 5.4 L Albumin 2.6 L Urine Protein Urine Ketones Urine Blood Ur Leukocyte Esterase 12/04/16 12/04/16 18:30 18:30 RBC Hgb Hct RDW PT VBG pH 7.24 L VBG HCO3 19.6 L Sodium Potassium Chloride Carbon Dioxide BUN Creatinine Est GFR ( Amer) Est GFR (Non-Af Amer) Glucose Total Protein Albumin Urine Protein 100 H Urine Ketones 20 H Urine Blood MODERATE H Ur Leukocyte Esterase LARGE H - Diagnostic Test Radiology reviewed: Image reviewed, Reports reviewed Radiology results interpreted by me: 12/04/16 21:08 Chest x-ray: No acute infiltrate or pneumothorax - EKG Interpretation by Me Additional EKG results interpreted by me: 12/05/16 01:36 Sinus tachycarida, 102, QTc 412. No ST elevations or depressions. Critical Care Note - Critical Care Note Total time excluding time spent on procedures (mins): 105 Comments: Critical care time spent obtaining history from patient or surrogate, discussions with consultants, development of treatment plan with patient or surrogate, evaluation of patient's response to treatment, examination of patient , ordering and performing treatments and interventions, ordering and review of laboratory studies, re-evaluation of patient's condition, ordering and review of radiographic studies and review of old charts Discharge - Discharge Clinical Impression: Septic shock, Acute kidney injury, Encephalopathy acute Condition: Critical Disposition: ADMITTED INPATIENT Admitting Provider: [place] [facility]ist [facility] Unit Admitted: Medical Floor
[2016-12-04 18:59] LABS: ABSOLUTE LYMPHOCYTES (AUTO) 2.2 10^3/uL (0.5-4.7); ABSOLUTE MONOCYTES (AUTO) 0.8 10^3/uL (0.1-1.4); ABSOLUTE NEUT (AUTO) 5.7 10^3/uL (1.7-8.2); BASOPHILS % (AUTO) 0.1 % (0-2); HEMATOCRIT 27.8 % (36.0-47.0); HGB HCT DIFFERENCE -0.8; LYMPHOCYTES % (AUTO) 25.6 % (13-45); MEAN CORPUSCULAR HEMOGLOBIN 28.5 pg (27.0-33.4); MEAN CORPUSCULAR HGB CONC 32.3 g/dL (32.0-36.0); MEAN CORPUSCULAR VOLUME 88 fl (80-97); MONOCYTES % (AUTO) 9.4 % (3-13); RED BLOOD COUNT 3.16 10^6/uL (3.72-5.28); RED CELL DISTRIBUTION WIDTH 17.9 % (11.5-14.0); SEGMENTED NEUTROPHILS % (AUTO) 64.9 % (42-78); WHITE BLOOD COUNT 8.8 10^3/uL (4.0-10.5)
[2016-12-04 19:06] LABS: PROTHROMBIN TIME 16.6 SEC (11.4-15.4)
[2016-12-04 19:08] LABS: AMORPHOUS SEDIMENT,URINE 1+ /HPF; APPEARANCE,URINE TURBID; BILIRUBIN,URINE NEGATIVE (NEGATIVE); GLUCOSE, URINE NEGATIVE (NEGATIVE); KETONES,URINE 20 mg/dL (NEGATIVE); LEUKOCYTE ESTERASE,URINE LARGE (NEGATIVE); NITRITE,URINE NEGATIVE (NEGATIVE); PROTEIN,URINE 100 mg/dL (NEGATIVE); UROBILINOGEN,URINE NEGATIVE mg/dL (<2.0)
[2016-12-04 19:20] LABS: ALANINE AMINOTRANSFERASE 25 U/L (9-52); ALBUMIN 2.6 g/dL (3.5-5.0); ALKALINE PHOSPHATASE 52 U/L (38-126); ANION GAP 14 (5-19); ASPARTATE AMINO TRANSFERASE 32 U/L (14-36); BILIRUBIN,DIRECT 0.4 mg/dL (0.0-0.4); BILIRUBIN,TOTAL 0.4 mg/dL (0.2-1.3); BLOOD UREA NITROGEN 40 mg/dL (7-20); CARBON DIOXIDE 18 mmol/L (22-30); CHLORIDE 126 mmol/L (98-107); CREATININE RESULT 2.61 mg/dL (0.52-1.25); GLUCOSE 168 mg/dL (75-110); POTASSIUM 3.2 mmol/L (3.6-5.0); SODIUM 157.8 mmol/L (137-145); TOTAL PROTEIN 5.4 g/dL (6.3-8.2)
--- NOTE | 2016-12-04 19:31 | RADIOLOGY REPORT (SQ) ---
EXAM DESCRIPTION: CHEST SINGLE VIEW COMPLETED DATE/TIME: 12/04/2016 7:11 pm REASON FOR STUDY: fever, hypotension COMPARISON: 11/30/2016 EXAM PARAMETERS: NUMBER OF VIEWS: One view. TECHNIQUE: Single frontal radiographic view of the chest acquired. RADIATION DOSE: NA LIMITATIONS: None. FINDINGS: LUNGS AND PLEURA: No acute opacities, masses or pneumothorax. No pleural effusion. MEDIASTINUM AND HILAR STRUCTURES: Stable. HEART AND VASCULAR STRUCTURES: Stable. BONES: No acute findings. HARDWARE: None in the chest. OTHER: No other significant finding. IMPRESSION: NO ACUTE RADIOGRAPHIC FINDING IN THE CHEST. TECHNICAL DOCUMENTATION: JOB ID: [id number]
[2016-12-04] MEDS ORDERED: VANCOMYCIN HCL INJ 1000 MG VIAL IV ONE (19:54)
[2016-12-04 20:27] VITALS: BP 92/51
[2016-12-04] MEDS ORDERED: LORAZEPAM INJ 2 MG/1 ML VIAL IV PRN ×2 (21:01→21:11)
[2016-12-04] MEDS ORDERED: MORPHINE SULFATE 10 MG/ML INJ IV PRN ×2 (21:01→21:08)
[2016-12-04] MEDS ORDERED: ACETAMINOPHEN 650 MG SUPP.RECT PR PRN (21:08)
[2016-12-04] MEDS ORDERED: ONDANSETRON HCL INJ/PF 4 MG/2 ML SDV IV PRN (21:08)
[2016-12-04] MEDS ORDERED: SCOPOLAMINE HYDROBROMIDE 1.5 MG PATCH.TD72 TD ONE (22:15)
--- NOTE | 2016-12-04 23:49 | EKG REPORT ---
SEVERITY:- ABNORMAL ECG - SINUS TACHYCARDIA LEFT AXIS DEVIATION BORDERLINE R WAVE PROGRESSION, ANTERIOR LEADS NONSPECIFIC REPOL ABNORMALITY, DIFFUSE LEADS : Confirmed by: Sobeida Knox 04-Dec-2016 23:48:41
--- NOTE | 2016-12-05 06:37 | PDOC H&P ---
History of Present Illness Admission Date/PCP: 12/04/16 21:08 Patient complains of: Patient nonverbal. Altered mental status History of Present Illness: FANTASMA WALDEN is a 66 year old female with a past medical history of diabetes, recurrent urinary tract infection, hypertension, dyslipidemia, obstructive sleep apnea, migraine, osteoarthritis and GERD. Who is a resident of [facility] with DNR, DNI, comfort measures status receiving hospice services. Patient was discovered with altered mental status by her 2 nieces who are next of kin demanding evaluation in the emergency room. Upon arrival to the emergency room she was discovered encephalopathic and septic from unclear source receiving resuscitative medical management of IV fluids and empiric antibiotics. Her comfort measures status is verified to be valid via the emergency room physician Dr. Gross and hospice provider Dr. Orta. Comfort measures are initiated in by the emergency room provider and she is referred to the hospitalist for observation and coordination of transfer to inpatient hospice care. Please see emergency room provider note. At bedside the patient is unarousable by noxious stimuli, without corneal reflex , obtunded with a GCS score of 3. Past Medical History Cardiac Medical History: Reports: Hyperlipidema, Hypertension - 6 years- takes meds Denies: Atrial Fibrillation, Congestive Heart Failure, Coronary Artery Disease, Myocardial Infarction, Peripheral Vascular Disease, Pulmonary Embolism , Heart Murmur Pulmonary Medical History: Reports: Sleep Apnea - uses CPAP Denies: Asthma, Bronchitis, Chronic Obstructive Pulmonary Disease (COPD), Pneumonia, Respiratory Failure, Tuberculosis Neurological Medical History: Reports: Migraine Denies: Seizures Endocrine Medical History: Reports: Diabetes Mellitus Type 2 Denies: Hyperthyroidism, Hypothyroidism Renal/ Medical History: Denies: End Stage Renal Disease Malignancy Medical History: Denies: Lung Cancer GI Medical History: Reports: Gastroesophageal Reflux Disease - takes meds, Hiatal Hernia Denies: Crohn's Disease Musculoskeltal Medical History: Reports: Arthritis Denies: Fibromyalgia Psychiatric Medical History: Reports: Depression Denies: Bipolar Disorder, Post Traumatic Stress Disorder Hematology: Infectious Medical History: Past Surgical History Past Surgical History: Reports: Section, Cholecystectomy, Orthopedic Surgery - bilat knee replacement, Tubal Ligation Denies: Amputation, Appendectomy, Colostomy, Coronary Artery Bypass Graft, Gastric Bypass Surgery, Herniorrhaphy, Hysterectomy, Mastectomy, Pacemaker, Tonsillectomy Social History Information Source: Emergency Med Personnel, [facility] Lives with: [facility] Smoking Status: Unknown if Ever Smoked Frequency of Alcohol Use: None Hx Recreational Drug Use: No Drugs: None Hx Prescription Drug Abuse: No - Advance Directive Resuscitation Status: Comfort Measures Only Family History Family History: Other - Patient is unable to give any history due to her mentation Parental Family History Reviewed: Yes - Unobtainable Children Family History Reviewed: Yes - Unobtainable Sibling(s) Family History Reviewed.: Yes - Unobtainable Medication/Allergy Home Medications: Triamcinolone Acetonide [Aristocort 0.1% Cream] 1 applic TOP BID 11/30/16 Allergies/Adverse Reactions: ciprofloxacin [From Cipro] Allergy (Verified 12/04/16 19:18) Rash/Hives meperidine [Meperidine] Allergy (Verified 12/04/16 19:18) Rash/Hives methadone [Methadone] Allergy (Verified 12/04/16 19:18) Rash/Hives Penicillins Allergy (Verified 12/04/16 19:18) Anaphylaxis, Rash Quinolones Allergy (Verified 12/04/16 19:18) Sulfa (Sulfonamide Antibiotics) Allergy (Verified 12/04/16 19:18) Rash/Hives Review of Systems ROS unobtainable: Due to mental status Physical Exam Vital Signs: Temp Pulse Resp BP Pulse Ox 101.0 F H 21 H 92/51 L 96 12/04/16 19:50 12/04/16 20:03 12/04/16 20:03 12/04/16 20:03 General appearance: PRESENT: no acute distress - Unresponsive and encephalopathic Head exam: PRESENT: atraumatic, normocephalic Eye exam: ABSENT: EOMI, nystagmus, PERRLA Ear exam: PRESENT: normal external ear exam Mouth exam: PRESENT: dry mucosa. ABSENT: laceration Neck exam: ABSENT: carotid bruit, JVD, lymphadenopathy, thyromegaly Respiratory exam: PRESENT: decreased breath sounds, tachypnea. ABSENT: wheezes Cardiovascular exam: PRESENT: RRR, tachycardia Pulses: PRESENT: other - Weak and thready pulses 70 over palp GI/Abdominal exam: PRESENT: diminished bowel sounds. ABSENT: distended, firm, guarding, hernia, hypoactive bowel sounds Rectal exam: PRESENT: deferred Extremities exam: PRESENT: full ROM. ABSENT: calf tenderness, clubbing, pedal edema Neurological exam: PRESENT: altered. ABSENT: alert, awake, oriented to person, oriented to place, CN II-XII grossly intact Skin exam: PRESENT: dry, intact, warm. ABSENT: cyanosis, rash Results Impressions: Chest X-Ray 12/04/16 18:57 IMPRESSION: NO ACUTE RADIOGRAPHIC FINDING IN THE CHEST. Assessment & Plan - Diagnosis (1) Comfort measures only status Is this a current diagnosis for this admission?: Yes Plan: Per patient wishes verified by the emergency room and hospice providers, as needed morphine, discharge planning consulted for inpatient hospice. (2) Encephalopathy acute Is this a current diagnosis for this admission?: Yes Plan: Secondary to acute on chronic illness. Comfort measures only (3) Septic shock Is this a current diagnosis for this admission?: Yes Plan: Empiric antibiotics initiated prior to discovery of hospice and comfort measures only. Antibiotics not continued. - Time Time Spent: 30 to 50 Minutes
[2016-12-05] MEDS ORDERED: SCOPOLAMINE HYDROBROMIDE 1.5 MG PATCH.TD72 TD SCH (10:00)
[2016-12-05] MEDS ORDERED: ATROPINE SULFATE 1% OPH SOLN 5 ML BOTTLE SL PRN (12:27)
[2016-12-05] MEDS ORDERED: LIDOCAINE 5% (700 MG) TRANSDERMAL ADH..PATCH TP PRN (12:27)
[2016-12-05] MEDS ORDERED: ACETAMINOPHEN 650 MG SUPP.RECT PR PRN (12:27)
--- NOTE | 2016-12-05 13:01 | PDOC PROGRESS REPORT ---
Subjective Progress Note for:: 12/05/16 Subjective:: Patient is seen on morning . She appears to be resting comfortably in bed. She is unresponive to verbal or tactile stimuli. She does not appear dyspneic or tachypneic. She has no audible secretions. Nursing report no issues overnight. There are presently no family members at bedside. Review of systems are unobtainable due to patient's mentation. Physical Exam Vital Signs: Temp Pulse Resp BP Pulse Ox 101.0 F H 21 H 92/51 L 96 12/04/16 19:50 12/04/16 20:03 12/04/16 20:03 12/04/16 20:03 General appearance: PRESENT: no acute distress, well-developed, well-nourished Head exam: PRESENT: atraumatic, normocephalic Eye exam: PRESENT: conjunctiva pink, EOMI, PERRLA. ABSENT: scleral icterus Mouth exam: PRESENT: dry mucosa, tongue midline Neck exam: ABSENT: carotid bruit, JVD, lymphadenopathy, thyromegaly Respiratory exam: PRESENT: decreased breath sounds, symmetrical, unlabored Cardiovascular exam: PRESENT: RRR. ABSENT: diastolic murmur, rubs, systolic murmur Pulses: PRESENT: normal dorsalis pedis pul Vascular exam: PRESENT: pallor GI/Abdominal exam: PRESENT: normal bowel sounds, soft. ABSENT: distended, guarding, mass, organolmegaly, rebound, tenderness Rectal exam: PRESENT: deferred Extremities exam: PRESENT: full ROM. ABSENT: calf tenderness, clubbing, pedal edema Musculoskeletal exam: PRESENT: normal inspection Neurological exam: PRESENT: altered, CN II-XII grossly intact - responds intermittently to tactile stimuli, other - unrespsonive to verbal or tactile stimulus Psychiatric exam: PRESENT: appropriate affect, normal mood. ABSENT: homicidal ideation, suicidal ideation Skin exam: PRESENT: dry, intact, warm. ABSENT: cyanosis, rash Results Impressions: Chest X-Ray 12/04/16 18:57 IMPRESSION: NO ACUTE RADIOGRAPHIC FINDING IN THE CHEST. Assessment & Plan - Diagnosis (1) Comfort measures only status Is this a current diagnosis for this admission?: Yes Plan: Patient appears in no acute distress. Family will meet with discharge planning to attempt to find her a hospice center closer to where they live. Present time will her symptoms seem under control. - Time Time Spent with patient: 25-34 minutes Critical Time spent with patient: 15-24 minutes Anticipated discharge: Home, Hospice Within: when bed available - Inpatient Certification Based on my medical assessment, after consideration of the patient's comorbidities, presenting symptoms, or acuity I expect that the services needed warrant INPATIENT care.: Yes I certify that my determination is in accordance with my understanding of Medicare's requirements for reasonable and necessary INPATIENT services [42 CFR 412.3e].: Yes
[2016-12-05] MEDS ORDERED: ONDANSETRON HCL INJ/PF 4 MG/2 ML SDV IV PRN (14:00)
[2016-12-05] MEDS ORDERED: MORPHINE SULFATE 10 MG/ML INJ IV ONE (14:26)
[2016-12-05] MEDS ORDERED: PHARMACY COMMUNICATION ORDER MC SCH (22:00)
[2016-12-06] MEDS ORDERED: FENTANYL 25 MCG/HR PATCH.TD72 TD ONE (07:46)
[2016-12-06] MEDS: LORAZEPAM INJ 2 MG/1 ML VIAL IV SCH ×3 (08:31→16:42)
[2016-12-06] MEDS: MORPHINE SULFATE 10 MG/ML INJ IV SCH ×3 (11:17→16:56)
--- NOTE | 2016-12-06 14:27 | PDOC TRANSFER SUMMARY ---
General - Admit/Disc Date/PCP Admission Date/Primary Care Provider: 12/04/16 21:08 Discharge Date: 12/06/16 - Discharge Diagnosis (1) Acute kidney injury Is this a current diagnosis for this admission?: Yes (2) Comfort measures only status Is this a current diagnosis for this admission?: Yes (3) Encephalopathy acute Is this a current diagnosis for this admission?: Yes (4) Septic shock Is this a current diagnosis for this admission?: Yes (5) Acute UTI Is this a current diagnosis for this admission?: Yes (6) Acute and chronic respiratory failure with hypoxia Is this a current diagnosis for this admission?: Yes (7) Acute metabolic encephalopathy due to hypoglycemia Is this a current diagnosis for this admission?: Yes (8) Acute renal failure Is this a current diagnosis for this admission?: Yes (9) Anemia of chronic disease Is this a current diagnosis for this admission?: Yes - Additional Information Resuscitation Status: Comfort Measures Only Home Medications: Acetaminophen [Mapap] 1,000 mg PO Q8HP PRN 12/05/16 Acetaminophen [Tylenol 650 mg Supp] 650 mg SC Q4HP PRN 12/05/16 Alprazolam [Xanax] 1 mg PO Q12 12/05/16 Aspirin [Aspirin 81 mg Chewable Tablet] 81 mg PO DAILY 12/05/16 Atorvastatin Calcium [Lipitor 20 mg Tablet] 20 mg PO QHS 12/05/16 Atropine Sulfate [Atropine 1% Oph Soln 5 ml] 4 drop SL Q2HP PRN 12/05/16 Bupropion HCl [Wellbutrin Xl] 300 mg PO QAM 12/05/16 Calamine [Calamine Lotion] 1 applic TP TID 12/05/16 Dextran 70/Hypromellose [Artificial Tears Eye Drops] 2 drop OU QAM 12/05/16 Diazepam [Valium 5 mg Tablet] 5 mg PO Q6HP PRN 12/05/16 Diazepam [Valium 5 mg Tablet] 5 mg SC Q6HP PRN 12/05/16 Diazepam [Valium 5 mg Tablet] 5 mg SL Q6HP PRN 12/05/16 Dimethicone/Colloidal Oatmeal [Aveeno Daily Moisturizing Lot] 1 applic TP BID Escitalopram Oxalate [Lexapro] 40 mg PO DAILY 12/05/16 Ferrous Sulfate [Feosol 325 mg Tablet] 325 mg PO DAILY 12/05/16 Haloperidol [Haldol 1 Mg Tablet] 0.5 mg SC Q4HP PRN 12/05/16 Haloperidol [Haldol 1 Mg Tablet] 0.5 mg SL Q4HP PRN 12/05/16 Haloperidol [Haldol 1 mg Tablet] 0.5 mg PO Q4HP PRN 12/05/16 Hydroxyzine HCl [Atarax 10 mg Tablet] 10 mg PO Q8 12/05/16 Insulin Aspart [Novolog Insulin 100 Unit/1 ml 10 ml] 0 unit SUBCUT .SLD SCALE Insulin Detemir [Levemir Insulin 300 Units/3 ml Insuln.pen] 14 unit SUBCUT QPM 12/05/16 Lidocaine [Lidoderm 5% (700 mg) Transdermal Patch] 1 patch TP DAILYP PRN Lisinopril [Prinivil 10 mg Tablet] 10 mg PO DAILY 12/05/16 Loperamide HCl [Loperamide] 2 mg PO PRN PRN 12/05/16 Magnesium Hydroxide [Milk of Magnesia] 30 ml PO HSP PRN 12/05/16 Metformin HCl [Glucophage 500 mg Tablet] 500 mg PO BIDACBS 12/05/16 Morphine Sulf Olive 100mg/5ml 2.5 mg PO Q1HP PRN 12/05/16 Morphine Sulf Olive 100mg\5ml 5 mg PO Q4HP PRN 12/05/16 Multivitamin [Daily Multiple Vitamin] 1 each PO DAILY 12/05/16 Nystatin/Dexameth/Diphen [Magic Mouthwash (Omh Formula) Susp] 15 ml PO BIDP PRN 12/05/16 Omeprazole 20 mg PO DAILY 12/05/16 Ondansetron HCl [Zofran 4 mg Tablet] 4 mg PO AC 12/05/16 Oxybutynin Chloride [Ditropan Xl] 10 mg PO QAM 12/05/16 Oxycodone HCl [Oxy-Ir 5 mg Tablet] 5 mg PO Q6HP PRN 12/05/16 Sennosides [Senna] 8.6 mg PO DAILY 12/05/16 Topiramate [Topamax] 50 mg PO Q12 12/05/16 Tramadol HCl [Ultram 50 mg Tablet] 50 mg PO Q8HP PRN 12/05/16 Trazodone HCl [Desyrel 50 mg Tablet] 25 mg PO QHS 12/05/16 Trazodone HCl [Desyrel] 150 mg PO QHS 12/05/16 Triamcinolone Acetonide [Aristocort 0.1% Cream 15 gm] 1 applic TP BID 12/05/16 History of Present Illness Admission Date/PCP: 12/04/16 21:08 History of Present Illness: FANTASMA WALDEN is a 66 year old female with a past medical history of diabetes, recurrent urinary tract infection, hypertension, dyslipidemia, obstructive sleep apnea, migraine, osteoarthritis and GERD. Who is a resident of [facility] with DNR, DNI, comfort measures status receiving hospice services. Patient was discovered with altered mental status by her 2 nieces who are next of kin demanding evaluation in the emergency room. Upon arrival to the emergency room she was discovered encephalopathic and septic from unclear source receiving resuscitative medical management of IV fluids and empiric antibiotics. Her comfort measures status is verified to be valid via the emergency room physician Dr. Gross and hospice provider Dr. Orta. Comfort measures are initiated in by the emergency room provider and she is referred to the hospitalist for observation and coordination of transfer to inpatient hospice care. Please see emergency room provider note. At bedside the patient is unarousable by noxious stimuli, without corneal reflex , obtunded with a GCS score of 3. Hospital Course Hospital Course: Patient remained comfort measures. Reaccepted by hospice. Returned to [facility] for continued comfort measures with community hospice overseeing care. Physical Exam Vital Signs: Temp Pulse Resp BP Pulse Ox 101.0 F H 21 H 92/51 L 96 12/04/16 19:50 12/04/16 20:03 12/04/16 20:03 12/04/16 20:03 Intake & Output 12/05/16 12/06/16 12/07/16 06:59 06:59 06:59 Output Total 650 Balance -650 Weight 71.1 kg Exam: General: resting comfortably, NAD HEENT: AT/NC, oropharynx is mostly dry, pink Neck: + JVD, trachea midline Chest: Prolonged expiratory phase, CTAB CV: Regular rate and rhythm, normal S1 and S2, no murmur, rub, or gallop Abdomen: scaphoid, Soft, nontender to palpation, non-distended, Extremities: No cyanosis or edema Neuro: resting comfortably Results Impressions: Chest X-Ray 12/04/16 18:57 IMPRESSION: NO ACUTE RADIOGRAPHIC FINDING IN THE CHEST. Transfer Plan - Time Spent with Patient Time spent with patient: Less than 30 Minutes Qualifiers PATEINT BEING DISCHARGED WITH ANY OF THE FOLLOWING DIAGNOSIS?: No Plan Time Spent: Less than 30 Minutes
== END 2016-12-06 18:15 | disposition home health service (06) ==
LOC: ER 18:22 → INTOOBSV 21:08 → EH 21:08 → UNDOADMIN 21:24 → 5 22:53
PROVIDERS: ADMIT Internal Medicine; ATTEND Internal Medicine
DX: N17.9 Acute kidney failure, unspecified (principal); Z51.5 Encounter for palliative care; G93.41 Metabolic encephalopathy; E11.649 Type 2 diabetes mellitus with hypoglycemia without coma; A41.9 Sepsis, unspecified organism; R65.21 Severe sepsis with septic shock; N39.0 Urinary tract infection, site not specified; J96.21 Acute and chronic respiratory failure with hypoxia; G47.33 Obstructive sleep apnea (adult) (pediatric); I10 Essential (primary) hypertension; D63.8 Anemia in other chronic diseases classified elsewhere; E87.0 Hyperosmolality and hypernatremia; K21.9 Gastro-esophageal reflux disease without esophagitis; Z66 Do not resuscitate; Z90.49 Acquired absence of other specified parts of digestive tract; Z96.653 Presence of artificial knee joint, bilateral; Z98.51 Tubal ligation status; Z87.440 Personal history of urinary (tract) infections; Z79.899 Other long term (current) drug therapy
CPT/HCPCS: 93005; 99291; 99292; 96365; 96366; 96368; 36415; 87040; 87086; 85025; 85610; 87077; 80053; 81001; 87186; 82803; 83605; 71010; 93010; J2270 ×3; J2060; J3490; J7120; J3370; J0692